=== PATIENT | female | born 1940 | race Hispanic/Latino ===

== ENCOUNTER 2016-08-11 11:27 | Inpatient (IN) | payer MEDICARE, OTHER ==
[2016-08-11 11:28] VITALS: BMI 26.3
--- NOTE | 2016-08-11 12:15 | ED PDOC ---
HPI: Altered Mental Status Time Seen by Provider: 08/11/16 12:09 Chief Complaint (Nursing): Weakness/Neurological Deficit Chief Complaint (Provider): altered mental status History Per: Family History/Exam Limitations: None Current Symptoms Are (Timing): Still Present Description Of Symptoms: Not At Baseline Use Of Anticoag/Antiplatlets: Yes Decreased Ability To: Stand, Walk Additional History Per: Family Additional Complaint(s): 76yo female w/ Hx DC 2 years ago, schizophrenia, taking plavix, brought by family for loss of bladder control. Patient currently complaining of epigastric , chest and facial pain. No fever. Today patient is more lethargic. Several episodes of non-bloody emesis this morning. At baseline patient is non-verbal, mostly non-communicative, can walk but shuffles with assistance. Has not been able to open left eye for several months. PMD: Andrew NIHSS Stroke Scale - Date/Time Evaluation Performed Date Performed: 08/11/16 Time Performed: 11:32 When Was NIHSS Performed: Baseline - How Severe is the Stroke Level of Consciousness: 1=Drowsy LOC to Questions: 2=Neither correct LOC to commands: 2=Neither correct Best Gaze: 0=Normal Visual: 0=No visual loss Facial: 0=Normal Motor Arm - Left: 0=No drift Motor Arm - Right: 0=No drift Motor Leg - Left: 2=Falls before 5 sec Motor Leg - Right: 2=Falls before 5 sec Limb Ataxia: 1=Present Upper or Lower Sensory: 0=Normal Best Language: 2=Severe aphasia Dysarthia: 2=Severe, near unintelligible or worse Extinction & Inattention (Neglect): 0=Normal, no object Score: 14 Past Medical History Reviewed: Historical Data, Nursing Documentation, Vital Signs Vital Signs: Last Vital Signs Temp 99.2 F 08/11/16 11:32 Pulse 90 08/11/16 11:32 Resp 20 08/11/16 11:32 BP 128/63 08/11/16 11:32 Pulse Ox 94 L 08/11/16 11:32 - Medical History PMH: Arthritis, Diabetes, HTN, Schizophrenia Denies: Atrial Fibrillation, Cardia Arrhythmia, CHF, CVA, Mitral Valve Prolapse, Chronic Kidney Disease Other PMH: DC - Surgical History Surgical History: Cholecystectomy, Coronary Stent - Family History Family History: States: Unknown Family Hx - Living Arrangements Living Arrangements: Intermediate/Assist Lvng - Home Medications Home Medications: Ambulatory Orders Medication Instructions Recorded Insulin Detemir [Levemir] 15 units SC BID 06/29/14 Perphenazine 2 mg PO BID 06/29/14 Aspirin [Ecotrin] 81 mg PO DAILY #30 tabec 06/30/14 Carvedilol [Coreg] 3.125 mg PO BID #60 tab 06/30/14 Clopidogrel [Plavix] 75 mg PO DAILY #30 tab 06/30/14 Lisinopril 2.5 mg PO DAILY #30 tab 06/30/14 Rosuvastatin Calcium [Crestor] 10 mg PO HS #30 tab 06/30/14 - Allergies Allergies/Adverse Reactions: Allergies Allergy/AdvReac Type Severity Reaction Status Date / Time Penicillins Allergy RASH Verified 08/11/16 11:36 Review of Systems Review Of Systems: ROS cannot be obtained secondary to pt's inabilty to answer questions. Neurological: Positive for: Altered Mental Status Physical Exam - Reviewed Nursing Documentation Reviewed: Yes Vital Signs Reviewed: Yes - Physical Exam Appears: Positive for: Non-toxic, No Acute Distress Head Exam: Positive for: ATRAUMATIC, NORMAL INSPECTION, NORMOCEPHALIC Skin: Positive for: Pallor Cardiovascular/Chest: Positive for: Regular Rate, Rhythm Respiratory: Negative for: Rales, Rhonchi, Wheezing Gastrointestinal/Abdominal: Positive for: Soft. Negative for: Tenderness Neurologic/Psych: Positive for: Alert, Other (follows basic commands) - Laboratory Results Result Diagrams: 08/12/16 06:50 08/12/16 06:50 - ECG O2 Sat by Pulse Oximetry: 94 Medical Decision Making Medical Decision Makin: Patient is not candidiate for interventional tx or peripheral TPA due to time elapsed >8hrs and other diagnosis possible besides CVA. \ rule out CVA, dehydration, infection, metabolic derangement, abdominal process, or other. CT Head w/o, EKG, CXR, Labs, VBG shock panel, IV Fluids ordered. CXR read by radiologist as no pneumonia. Admit hospitalist for Dr Morales. UA pending time admit. Disposition - Clinical Impression Clinical Impression: Dehydration, Altered mental status, Hyponatremia, Schizophrenia - Patient ED Disposition Is Patient to be Admitted: Yes Counseled Patient/Family Regarding: Studies Performed - Disposition Disposition Time: 14:30 Condition: GUARDED - Pt Status Changed To: Hospital Disposition Of: Inpatient - Admit Certification Admit to Inpatient:: After my assessment, the patient will require hospitalization for at least two midnights. This is because of the severity of symptoms shown, intensity of services needed, and/or the medical risk in this patient being treated as an outpatient. - POA Present On Arrival: Poor Glycemic Control Additional Comments - Additional Comments Additional Comments: Scribe Attestation: Documented by Ammon Cervantes acting as a scribe for Jorge Hull DO. Provider Scribe Attestation: All medical record entries made by the Scribe were at my direction and personally dictated by me. I have reviewed the chart and agree that the record accurately reflects my personal performance of the history, physical exam, medical decision making, and the department course for this patient. I have also personally directed, reviewed, and agree with the discharge instructions and disposition.
[2016-08-11] MEDS ORDERED: Sodium Chloride 0.9% 1,000 ML IV STA (12:17)
[2016-08-11 13:08] LABS: VENOUS BLOOD GAS BASE EXCESS 1.2 mmol/L (0.0-2.0); VENOUS BLOOD GAS PCO2 41 mmHg (40-60); VENOUS BLOOD PH 7.41 (7.32-7.43)
--- NOTE | 2016-08-11 13:20 | RAD ---
HISTORY: SOB COMPARISON: Chest x-ray performed 06/28/14 TECHNIQUE: Chest, one view. FINDINGS: LUNGS: No focal consolidation. Punctate right upper lobe calcified granuloma. Please note that chest x-ray has limited sensitivity for the detection of pulmonary masses. PLEURA: No significant pleural effusion identified. No definite pneumothorax . CARDIOVASCULAR: Heart size appears within normal limits. Mild aortic ectasia. OSSEOUS STRUCTURES: Degenerative changes. VISUALIZED UPPER ABDOMEN: Unremarkable. OTHER FINDINGS: None. IMPRESSION: No focal consolidation, significant pleural effusion, or definite pneumothorax identified.
[2016-08-11 13:26] LABS: ALB/GLOB RATIO 1.1 (1.0-2.1); ALKALINE PHOSPHATASE 88 U/L (38-126); ALT/SGPT 28 U/L (9-52); AST/SGOT 20 U/L (14-36); BILIRUBIN,TOTAL 0.4 mg/dl (0.2-1.3); BLOOD UREA NITROGEN 21 mg/dl (7-17); CALCIUM 8.9 mg/dL (8.4-10.2); CARBON DIOXIDE 21 mmol/L (22-30); CHLORIDE 99 mmol/L (98-107); CHOLESTEROL 86 mg/dL (0-199); GFR AFRICAN-AMERICAN > 60; GLUCOSE,RANDOM 243 mg/dL (65-105); POTASSIUM 4.4 MMOL/L (3.6-5.0); SODIUM 129 mmol/l (132-148)
[2016-08-11 13:31] LABS: PARTIAL THROMBOPLASTIN TIME 25.5 SECONDS (23.3-32.5)
[2016-08-11 13:56] LABS: BASO % 0.4 % (0.0-2.0); EOS # 0.1 K/uL (0.0-0.7); EOS % 0.6 % (0.0-4.0); HEMATOCRIT 37.6 % (34.0-47.0); LYMPH # 1.8 K/uL (1.0-4.3); LYMPH % 14.9 % (20.0-40.0); MEAN CELL VOLUME 92.2 fl (81.0-99.0); MEAN CORPUSCULAR HEMOGLOBIN 31.1 pg (27.0-31.0); MEAN CORPUSCULAR HGB CONC 33.8 g/dL (33.0-37.0); MEAN PLATELET VOLUME 8.4 fl (7.2-11.7); MONO # 1.4 K/uL (0.0-0.8); MONO % 11.2 % (0.0-10.0); NEUT # 8.9 K/uL (1.8-7.0); NEUT % 72.9 % (50.0-75.0); RED CELL DISTRIBUTION WIDTH 12.8 % (11.5-14.5); WHITE BLOOD COUNT 12.2 K/uL (4.8-10.8)
--- NOTE | 2016-08-11 14:33 | CT ---
PROCEDURE: CT HEAD WITHOUT CONTRAST. HISTORY: AMS COMPARISON: 09/19/2009. TECHNIQUE: Axial computed tomography images were obtained through the head/brain without intravenous contrast. Radiation dose: Total exam DLP = 1172.53 mGy-cm. FINDINGS: HEMORRHAGE: No intracranial hemorrhage. BRAIN: No mass effect or edema. Cortical atrophy, periventricular small vessel disease. Small lacune or infarcts again identified bilaterally. VENTRICLES: Unremarkable. No hydrocephalus. CALVARIUM: Unremarkable. PARANASAL SINUSES: Unremarkable as visualized. No significant inflammatory changes. MASTOID AIR CELLS: Unremarkable as visualized. No inflammatory changes. OTHER FINDINGS: None. IMPRESSION: No acute intracranial abnormalities. No significant findings to account for the clinical presentation. No significant interval change compared to the prior examination(s).
--- NOTE | 2016-08-11 16:43 | CP.PCM.HP ---
History of Present Illness - History of Present Illness History of Present Illness: 76 y/o female with PMH Schizofrenia, HTN, h/o IN, Dyslipidemia,IDDM was seen in ER 07/31/16 for hematuria and diagnosed with UTI. She was discharged home on Nitrofurantoin PO. Today decided to bring patient back to ER for evaluation for frequent urination , every 10 minutes , generalized weakness and 1 episode of vomiting after eating some soup today. As per family patient is completely dependent on for all her daily activities, walks with assistance , unable to maintain normal conversations, poor cognition, knows her daughter and . She denies any pain at present. 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 Andrew STAPLETON ; unable to answer questions Present on Admission - Present on Admission Any Indicators Present on Admission: No History of Uncontrolled Diabetes: No Review of Systems - Review of Systems Review of Systems: unable to obtain due to her Schizofrenia Past Patient History - Infectious Disease Hx of Infectious Diseases: None - Tetanus Immunizations Tetanus Immunization: Unknown - Past Medical History & Family History Past Medical History?: Yes Past Family History: Reviewed and not pertinent - Past Social History Smoking Status: Never Smoked Chewing Tobacco Use: No Cigar Use: No Alcohol: None Home Situation {Lives}: With Family (lives with ) Domestic Violence: Negative - CARDIAC Hx Cardiac Disorders: Yes - PULMONARY Hx Respiratory Disorders: No - NEUROLOGICAL Hx Neurological Disorder: Yes - HEENT Hx HEENT Problems: Yes - RENAL Hx Chronic Kidney Disease: No - ENDOCRINE/METABOLIC Hx Endocrine Disorders: Yes - HEMATOLOGICAL/ONCOLOGICAL Hx Blood Disorders: No - INTEGUMENTARY Hx Dermatological Problems: No - MUSCULOSKELETAL/RHEUMATOLOGICAL Hx Musculoskeletal Disorders: No - GASTROINTESTINAL Hx Gastrointestinal Disorders: Yes Hx Nausea: Yes Hx Vomiting: Yes - GENITOURINARY/GYNECOLOGICAL Hx Genitourinary Disorders: No - PSYCHIATRIC Hx Psychophysiologic Disorder: Yes - SURGICAL HISTORY Hx Cholecystectomy: Yes Hx Coronary Stent: Yes - ANESTHESIA Hx Anesthesia: Yes Hx Anesthesia Reactions: No Hx Malignant Hyperthermia: No Meds Allergies/Adverse Reactions: Allergies Allergy/AdvReac Type Severity Reaction Status Date / Time Penicillins Allergy RASH Verified 08/11/16 11:36 Physical Exam - Constitutional Appears: Non-toxic, No Acute Distress, Confused, Chronically Ill - Head Exam Head Exam: ATRAUMATIC, NORMAL INSPECTION Additional comments: left ptosis ? - Eye Exam Eye Exam: EOMI, PERRL - ENT Exam ENT Exam: Mucous Membranes Dry, Normal Exam - Neck Exam Neck exam: Positive for: Full Rom, Normal Inspection - Respiratory Exam Respiratory Exam: Clear to Auscultation Bilateral, NORMAL BREATHING PATTERN. absent: Accessory Muscle Use, Rales, Wheezes, Respiratory Distress - Cardiovascular Exam Cardiovascular Exam: REGULAR RHYTHM, RRR, +S1, +S2. absent: JVD - GI/Abdominal Exam GI & Abdominal Exam: Normal Bowel Sounds, Soft. absent: Distended, Guarding, Rebound, Tenderness - Rectal Exam Rectal Exam: Deferred - Exam External exam: Erythema (labia major bilaterally) - Extremities Exam Extremities exam: Positive for: normal capillary refill, normal inspection, pedal pulses present. Negative for: calf tenderness, pedal edema - Neurological Exam Neurological exam: Alert Additional comments: oriented only to person poor cognition awake , alert moves all 4 extremities, follows simple commands - Psychiatric Exam Psychiatric exam: Flat Affect - Skin Skin Exam: Dry, Pallor, Warm Additional comments: stage I decubitus to sacral area Results - Vital Signs Recent Vital Signs: Last Vital Signs Temp 98.0 F 08/11/16 15:45 Pulse 77 08/11/16 15:45 Resp 16 08/11/16 15:45 BP 122/85 08/11/16 15:45 Pulse Ox 98 08/11/16 15:45 - Labs Result Diagrams: 08/11/16 12:50 08/11/16 12:50 - Imaging and Cardiology CT scan - head Additional comment: No acute pathology cxr Additional comment: no acute pathology Assessment & Plan - Assessment and Plan (Free Text) Assessment: 76 y/o female with PMH Schizofrenia, HTN, h/o [place], Dyslipidemia,IDDM was seen in ER 07/31/16 for hematuria and diagnosed with UTI. She was discharged home on Nitrofurantoin PO. Today decided to bring patient back to ER for evaluation for frequent urination , every 10 minutes , generalized weakness and 1 episode of vomiting after eating some soup today. As per family patient is completely dependent on for all her daily activities, walks with assistance , unable to maintain normal conversations, poor cognition, knows her daughter and . She denies any pain at present. In ER found to have Na 129 WBC 12 k BUN 21 1. Suspected UTI and fungal infection UA positive for yeast , bacteria, LE Send for urine cultures physical exam significant for erythema to labia major Will start Ciprofloxacin and Diflucan IV Start Nystatin powder topically 2. Dehydration / Hyponatremia Start NS @ 100 cc/hr Repeta BMP in AM 3.IDDM Accuchecks , insulin coverage Reviewed her accuchecks from home, ranging > 250 will incresae Levemir from 15 tpo 20 units SQ Diabetic diet 4. Hypertension controlled Resume coreg 5. CAD with history [place] Continue ASA, plavix, Sttain, Coreg, lisinopril 6. Schizophrenia poor cognition, totally dependable on for all daily activities Ambulates with assistance Has home health aid Family does not want any [facility] or placement 7. DVT prophylaxis SCD
[2016-08-11 16:44] LABS: RBC URINE 180 /hpf (0-3); URINE BACTERIA FEW (<OCC); URINE BILIRUBIN NEGATIVE (NEGATIVE); URINE BLOOD LARGE (NEGATIVE); URINE COLOR YELLOW (YELLOW); URINE GLUCOSE (UA) >=500 mg/dL (Normal); URINE KETONE NEGATIVE (NEGATIVE); URINE LEUKOCYTE ESTERASE SMALL Leu/uL (Negative); URINE PROTEIN 30 mg/dL (NEGATIVE); URINE UROBILINOGEN 0.2-1.0 mg/dL (0.2-1.0); WBC URINE 39 /hpf (0-5)
[2016-08-11] MEDS ORDERED: Pneumococcal 23-Valent Vaccine IM ONE (17:57)
[2016-08-11] MEDS ORDERED: Influenza Vaccine(5yr & older) 0.5 ML/45 MCG IM ONE (17:57)
[2016-08-11] MEDS: Sodium Chloride 0.9% 1,000 ML IV SCH (18:40)
[2016-08-11] MEDS: FLUCONAZOLE IVPB SCH (20:30)
[2016-08-11] MEDS: NS 100 MG IVPB SCH (20:30)
[2016-08-11] MEDS: PREMIXED IVPB SCH (20:30)
[2016-08-11] MEDS: Ciprofloxacin 400mg/200ml D5W 200 ML IVPB SCH (21:00)
[2016-08-11] MEDS: Insulin Regular 100 units/ml SC SCH (22:00)
[2016-08-11] MEDS ORDERED: Patient's Own Med (Rosuvastatin Calcium [Crestor] 10 MG) PO SCH (22:00)
--- NOTE | 2016-08-12 07:20 | CARD ---
APPROVED REPORT EKG Measurement Heart [id number] <Conclusion> Normal sinus rhythm Left ventricular hypertrophy with repolarization abnormality Abnormal ECG
[2016-08-12 07:29] LABS: BASO % 0.4 % (0.0-2.0); HEMATOCRIT 34.9 % (34.0-47.0); LYMPH # 1.4 K/uL (1.0-4.3); LYMPH % 17.1 % (20.0-40.0); MEAN CORPUSCULAR HEMOGLOBIN 31.5 pg (27.0-31.0); MEAN CORPUSCULAR HGB CONC 34.6 g/dL (33.0-37.0); MEAN PLATELET VOLUME 8.1 fl (7.2-11.7); MONO % 11.9 % (0.0-10.0); NEUT # 5.7 K/uL (1.8-7.0); NEUT % 70.6 % (50.0-75.0); RED CELL DISTRIBUTION WIDTH 12.8 % (11.5-14.5); WHITE BLOOD COUNT 8.1 K/uL (4.8-10.8)
[2016-08-12 07:45] LABS: BLOOD UREA NITROGEN 20 mg/dl (7-17); CALCIUM 8.1 mg/dL (8.4-10.2); CARBON DIOXIDE 22 mmol/L (22-30); CHLORIDE 102 mmol/L (98-107); GFR AFRICAN-AMERICAN > 60; GLUCOSE,RANDOM 292 mg/dL (65-105); POTASSIUM 4.2 MMOL/L (3.6-5.0); SODIUM 136 mmol/l (132-148)
[2016-08-12] MEDS: Insulin Regular 100 units/ml SC SCH ×3 (08:00→17:03)
[2016-08-12] MEDS ORDERED: INSULIN DETEMIR 20 UNIT SC SCH (09:00)
[2016-08-12] MEDS ORDERED: LISINOPRIL 2.5 MG PO SCH (09:00)
[2016-08-12] MEDS ORDERED: PERPHENAZINE 2 MG PO SCH (09:00)
[2016-08-12] MEDS: Ciprofloxacin 400mg/200ml D5W 200 ML IVPB SCH ×2 (09:25→21:21)
[2016-08-12] MEDS: PREMIXED IVPB SCH (09:26)
[2016-08-12] MEDS: NS 100 MG IVPB SCH (09:26)
[2016-08-12] MEDS: FLUCONAZOLE IVPB SCH (09:26)
[2016-08-12] MEDS: Insulin Detemir 100 Units/ml Inj SC SCH ×2 (09:27→17:04)
[2016-08-12] MEDS: Pantoprazole 40 mg EC Tab PO SCH ×2 (09:27→09:58)
--- NOTE | 2016-08-12 11:24 | PQF GENQUE ---
Dr. Anne, (1)Nonblanchble redness of sacrum? (2) POA? OR; Disagree OR: Other explanation of clinical findings Nursing pressure ulcer assessment :sacrum non-blanchable redness 08/11: physician order; nursing referral for Wound Care:reason for exam:sacral and perineal redness Wound consult pending This form is a permanent part of the medical record See documentation in H & P Clarification of your documentation is requested to better reflect the severity of illness and intensity of treatment of your patient. Indicators present [] Specify: [] [] Specify: [] [] Specify: [] [] Specify: [] Location in the medical record that reflects the above clinical findings: [] Treatment Provided: [] PHYSICIAN'S RESPONSE Based on your medical judgment of the clinical indicators outlined above please clarify the following: [] Practitioner response [] If unable to determine, please check the box, sign and date. Present On Admission (POA) Indicator: [] Present at the time of admission [] Not present at the time of admission [] Clinically Undetermined In responding to this query, please exercise your independent professional judgment. The fact that a question is asked does not imply that any particular answer is desired or expected. Thank you for your clarification on this documentation. If you have any questions please call. * Thank you, Karen Aly RN BSN ext. #[phone] MTDD
[2016-08-12] MEDS ORDERED: Insulin Regular 100 units/ml SC ONE (12:29)
--- NOTE | 2016-08-12 13:43 | CP.PCM.PN ---
Subjective - Date & Time of Evaluation Date of Evaluation: 08/12/16 Time of Evaluation: 11:30 - Subjective Subjective: Patient was seen and evaluated bedside.Patient appears comfortable, in NAD , sleeping most of the time.Was found on the floor by staff sleeping with no obvious signs of trauma. Moving all 4 extremities,no obvious signs of trauma noted, no incontinence. Patient responding to name calling , denies any pain upon questioning, palpation or passive movement of all her extremities. She is awake , alert , follows simple commands, denies any pain , unable to hold conversation , poor cognition. Hemodynamically stable, afebrile. No acute issues overnight Objective - Vital Signs/Intake and Output Vital Signs (last 24 hours): Temp Pulse Resp BP Pulse Ox 98.5 F 97 H 20 151/68 H 97 08/12/16 11:40 08/12/16 11:40 08/12/16 11:40 08/12/16 11:40 08/12/16 11:40 - Medications Medications: Current Medications Acetaminophen (Tylenol 325mg Tab) 650 mg PO Q6 PRN PRN Reason: Pain, Mild (1-3) Acetaminophen (Tylenol 325mg Tab) 650 mg PO Q6 PRN PRN Reason: Fever >100.4 F Aspirin (Ecotrin) 81 mg PO DAILY [facility] Last Admin: 08/12/16 09:35 Dose: Not Given Atorvastatin Calcium (Lipitor) 20 mg PO DAILY [facility] Last Admin: 08/12/16 09:35 Dose: Not Given Carvedilol (Coreg) 3.125 mg PO BID [facility] Last Admin: 08/12/16 09:35 Dose: Not Given Clopidogrel Bisulfate (Plavix) 75 mg PO DAILY [facility] Last Admin: 08/12/16 09:35 Dose: Not Given Home Med (Insulin Detemir [Levemir]) 20 units SC BID [facility] Home Med (Lisinopril [Lisinopril]) 2.5 mg PO DAILY [facility] Home Med (Perphenazine [Perphenazine]) 2 mg PO BID [facility] Home Med (Rosuvastatin Calcium [Crestor]) 10 mg PO HS [facility] Fluconazole 100 mg/ (Miscellaneous) 50 mls @ 50 mls/hr IVPB DAILY [facility] Last Admin: 08/12/16 09:26 Dose: 50 mls/hr Sodium Chloride (Sodium Chloride 0.9%) 1,000 mls @ 100 mls/hr IV .Q10H [facility] Stop: 08/12/16 18:16 Last Admin: 08/11/16 18:40 Dose: 100 mls/hr Ciprofloxacin (Cipro 400mg/200ml Dsw) 200 mls @ 200 mls/hr IVPB Q12 [facility] Last Admin: 08/12/16 09:25 Dose: 200 mls/hr Insulin Detemir (Levemir) 20 units SC BID [facility] Last Admin: 08/12/16 09:27 Dose: 20 unit Insulin Human Regular (Humulin R) 0 units SC ACHS [facility] PRN Reason: Protocol Last Admin: 08/12/16 08:00 Dose: 4 units Lisinopril (Zestril) 2.5 mg PO DAILY [facility] Last Admin: 08/12/16 09:35 Dose: Not Given Nystatin (Nystop Topical Powder) 1 applic TOP TID [facility] Last Admin: 08/12/16 09:28 Dose: 1 applic Ondansetron HCl (Zofran Inj) 4 mg IVP Q6 PRN PRN Reason: Nausea/Vomiting Last Admin: 08/12/16 09:38 Dose: 4 mg Pantoprazole Sodium (Protonix Ec Tab) 40 mg PO DAILY [facility] Last Admin: 08/12/16 09:58 Dose: Not Given Perphenazine (Perphenazine) 2 mg PO BID [facility] Last Admin: 08/12/16 09:35 Dose: Not Given - Labs Labs: 08/12/16 06:50 08/12/16 06:50 PT 10.6 SECONDS (9.6-11.2) 08/11/16 12:50 INR 1.02 (0.92-1.08) 08/11/16 12:50 APTT 25.5 SECONDS (23.3-32.5) 08/11/16 12:50 - Constitutional Appears: Non-toxic, No Acute Distress, Chronically Ill (poor cognition), Other ( left eye ptosis) - Head Exam Head Exam: ATRAUMATIC, NORMOCEPHALIC - Eye Exam Eye Exam: EOMI Pupil Exam: NORMAL ACCOMODATION Additional comments: keeps left eye closed most of the time - ENT Exam ENT Exam: Mucous Membranes Moist, Normal Exam - Neck Exam Neck Exam: Full ROM, Normal Inspection - Respiratory Exam Respiratory Exam: Clear to Ausculation Bilateral, NORMAL BREATHING PATTERN. absent: Rales, Rhonchi, Wheezes - Cardiovascular Exam Cardiovascular Exam: REGULAR RHYTHM, RRR, +S1, +S2. absent: JVD - GI/Abdominal Exam GI & Abdominal Exam: Soft, Normal Bowel Sounds. absent: Distended, Guarding, Tenderness, Rebound - Rectal Exam Rectal Exam: Deferred - Exam External exam: Erythema (bilateral labia major ) - Extremities Exam Extremities Exam: Full ROM, Normal Capillary Refill, Normal Inspection. absent : Calf Tenderness, Pedal Edema - Back Exam Back Exam: NORMAL INSPECTION - Neurological Exam Neurological Exam: Alert, Awake Additional comments: follow simple commands poor cognition - Psychiatric Exam Psychiatric exam: Flat Affect - Skin Skin Exam: Dry, Pallor Additional comments: stage I ( non blanchable erythema to sacral area ) Assessment and Plan - Assessment and Plan (Free Text) Assessment: 76 y/o female with PMH Schizofrenia, HTN, h/o [place], Dyslipidemia,IDDM was seen in ER 07/31/16 for hematuria and diagnosed with UTI. She was discharged home on Nitrofurantoin PO. On 08/11/16 decided to bring patient back to ER for evaluation for frequent urination , every 10 minutes , generalized weakness and 1 episode of vomiting after eating some soup . As per family patient is completely dependent on for all her daily activities, walks with assistance , unable to maintain normal conversations, poor cognition, knows her daughter and . She denies any pain at present. In ER found to have Na 129 WBC 12 k BUN 21 1. Suspected UTI and fungal infection UA positive for yeast , bacteria, LE Follow up urine cultures physical exam significant for erythema to labia major suspicious for candidiasis Continue Ciprofloxacin and Diflucan IV Nystatin powder topically 2. Dehydration / Hyponatremia improving On NS @ 100 cc/hr 3.IDDM uncontrolled Accuchecks , insulin coverage Reviewed her accuchecks from home, ranging > 250 increased Levemir from 15 to 20 units SQ BID Diabetic diet 4.Hypertension labile continue coreg Given Hydralazine IV for uncontrolled HTN 5. CAD with history [place] Continue ASA, plavix, Sttain, Coreg, lisinopril 6. Schizophrenia poor cognition, totally dependable on for all daily activities Ambulates with assistance Has home health aid Family does not want any DAO or placement Suspected fall today in e floor since patient was found on [facility] no signs of trauma or no pain.Placed on 1 ; 1 for safety 7. DVT prophylaxis SCD
[2016-08-12] MEDS: Sodium Chloride 0.9% 1,000 ML IV SCH ×2 (14:30→22:14)
[2016-08-12] MEDS: guaiFENesin-DM 600-30 mg ER Tab PO SCH (17:08)
[2016-08-13] MEDS: Insulin Regular 100 units/ml SC SCH ×3 (01:08→11:30)
[2016-08-13 07:05] LABS: HEMATOCRIT 35.8 % (34.0-47.0); MEAN CORPUSCULAR HEMOGLOBIN 31.2 pg (27.0-31.0); MEAN CORPUSCULAR HGB CONC 34.3 g/dL (33.0-37.0); RED CELL DISTRIBUTION WIDTH 12.8 % (11.5-14.5); WHITE BLOOD COUNT 9.2 K/uL (4.8-10.8)
[2016-08-13 07:27] LABS: BLOOD UREA NITROGEN 14 mg/dl (7-17); CALCIUM 8.1 mg/dL (8.4-10.2); CARBON DIOXIDE 20 mmol/L (22-30); CHLORIDE 103 mmol/L (98-107); GFR AFRICAN-AMERICAN > 60; GLUCOSE,RANDOM 96 mg/dL (65-105); SODIUM 131 mmol/l (132-148)
[2016-08-13] MEDS: PREMIXED IVPB SCH (09:00)
[2016-08-13] MEDS: NS 100 MG IVPB SCH (09:00)
[2016-08-13] MEDS: FLUCONAZOLE IVPB SCH (09:00)
[2016-08-13] MEDS: Ciprofloxacin 400mg/200ml D5W 200 ML IVPB SCH (09:29)
[2016-08-13] MEDS: Insulin Detemir 100 Units/ml Inj SC SCH (09:29)
[2016-08-13] MEDS: guaiFENesin-DM 600-30 mg ER Tab PO SCH (09:30)
[2016-08-13] MEDS: Pantoprazole 40 mg EC Tab PO SCH (09:30)
--- NOTE | 2016-08-13 11:51 | CP.PCM.DIS ---
Provider - Provider Date of Admission: 08/11/16 14:56 Attending physician: Joan Anne MD Primary care physician: Corrie Hernandez DO Time Spent in preparation of Discharge (in minutes): 40 Hospital Course - Lab Results Lab Results: Most Recent Lab Values WBC 9.2 K/uL (4.8-10.8) 08/13/16 06:00 RBC 3.94 Mil/uL (3.80-5.20) 08/13/16 06:00 Hgb 12.3 g/dL (12.0-16.0) 08/13/16 06:00 Hct 35.8 % (34.0-47.0) 08/13/16 06:00 MCV 91.0 fl (81.0-99.0) 08/13/16 06:00 MCH 31.2 pg (27.0-31.0) H 08/13/16 06:00 MCHC 34.3 g/dL (33.0-37.0) 08/13/16 06:00 RDW 12.8 % (11.5-14.5) 08/13/16 06:00 Plt Count 130 K/uL (130-400) 08/13/16 06:00 MPV 8.1 fl (7.2-11.7) 08/12/16 06:50 Neut % (Auto) 70.6 % (50.0-75.0) 08/12/16 06:50 Lymph % (Auto) 17.1 % (20.0-40.0) L 08/12/16 06:50 Frederick % (Auto) 11.9 % (0.0-10.0) H 08/12/16 06:50 Eos % (Auto) 0.0 % (0.0-4.0) 08/12/16 06:50 Baso % (Auto) 0.4 % (0.0-2.0) 08/12/16 06:50 Neut # 5.7 K/uL (1.8-7.0) 08/12/16 06:50 Lymph # 1.4 K/uL (1.0-4.3) 08/12/16 06:50 Frederick # 1.0 K/uL (0.0-0.8) H 08/12/16 06:50 Eos # 0.0 K/uL (0.0-0.7) 08/12/16 06:50 Baso # 0.0 K/uL (0.0-0.2) 08/12/16 06:50 PT 10.6 SECONDS (9.6-11.2) 08/11/16 12:50 INR 1.02 (0.92-1.08) 08/11/16 12:50 APTT 25.5 SECONDS (23.3-32.5) 08/11/16 12:50 pO2 44 mm/Hg (30-55) 08/11/16 13:00 VBG pH 7.41 (7.32-7.43) 08/11/16 13:00 VBG pCO2 41 mmHg (40-60) 08/11/16 13:00 VBG HCO3 25.4 mmol/L 08/11/16 13:00 VBG Total CO2 27.3 mmol/L (22-28) 08/11/16 13:00 VBG O2 Sat (Calc) 81.9 % (40-65) H 08/11/16 13:00 VBG Base Excess 1.2 mmol/L (0.0-2.0) 08/11/16 13:00 VBG Potassium 4.3 mmol/L (3.6-5.2) 08/11/16 13:00 Sodium 129.0 mmol/L (132-148) L 08/11/16 13:00 Chloride 102.0 mmol/L (98-107) 08/11/16 13:00 Glucose 253 mg/dL (65-105) H 08/11/16 13:00 Lactate 1.1 mmol/L (0.7-2.1) 08/11/16 13:00 FiO2 21.0 % 08/11/16 13:00 Sodium 131 mmol/l (132-148) L 08/13/16 06:00 Potassium 4.0 MMOL/L (3.6-5.0) 08/13/16 06:00 Chloride 103 mmol/L (98-107) 08/13/16 06:00 Carbon Dioxide 20 mmol/L (22-30) L 08/13/16 06:00 Anion Gap 12 (10-20) 08/13/16 06:00 BUN 14 mg/dl (7-17) 08/13/16 06:00 Creatinine 0.6 mg/dL (0.7-1.2) L 08/13/16 06:00 Est GFR ( Amer) > 60 08/13/16 06:00 Est GFR (Non-Af Amer) > 60 08/13/16 06:00 POC Glucose (mg/dL) 115 mg/dL (65-110) H 08/13/16 05:03 Random Glucose 96 mg/dL (65-105) 08/13/16 06:00 Hemoglobin A1c 10.0 % (4.2-6.5) H 08/11/16 14:40 Calcium 8.1 mg/dL (8.4-10.2) L 08/13/16 06:00 Total Bilirubin 0.4 mg/dl (0.2-1.3) 08/11/16 12:50 AST 20 U/L (14-36) 08/11/16 12:50 ALT 28 U/L (9-52) 08/11/16 12:50 Alkaline Phosphatase 88 U/L (38-126) 08/11/16 12:50 Troponin I 0.0290 ng/mL (0.00-0.120) 08/11/16 12:50 Total Protein 7.0 G/DL (6.3-8.2) 08/11/16 12:50 Albumin 3.7 g/dL (3.5-5.0) 08/11/16 12:50 Globulin 3.3 gm/dL (2.2-3.9) 08/11/16 12:50 Albumin/Globulin Ratio 1.1 (1.0-2.1) 08/11/16 12:50 Triglycerides 118 mg/DL (0-149) 08/11/16 12:50 Cholesterol 86 mg/dL (0-199) 08/11/16 12:50 LDL Cholesterol Direct < 30 mg/dL (0-129) 08/11/16 12:50 HDL Cholesterol 34 MG/DL (30-70) 08/11/16 12:50 Venous Blood Potassium 4.3 mmol/L (3.6-5.2) 08/11/16 13:00 Urine Color Yellow (YELLOW) 08/11/16 14:50 Urine Clarity Slighty-cloudy (Clear) 08/11/16 14:50 Urine pH 7.0 (5.0-8.0) 08/11/16 14:50 Ur Specific [place] < 1.005 (1.003-1.030) 08/11/16 14:50 Urine Protein 30 mg/dL (NEGATIVE) 08/11/16 14:50 Urine Glucose (UA) >=500 mg/dL (Normal) 08/11/16 14:50 Urine Ketones Negative mg/dL (NEGATIVE) 08/11/16 14:50 Urine Blood Large (NEGATIVE) 08/11/16 14:50 Urine Nitrate Negative (NEGATIVE) 08/11/16 14:50 Urine Bilirubin Negative (NEGATIVE) 08/11/16 14:50 Urine Urobilinogen 0.2-1.0 mg/dL (0.2-1.0) 08/11/16 14:50 Ur Leukocyte Esterase Small [place]/uL (Negative) 08/11/16 14:50 Urine RBC (Auto) 180 /hpf (0-3) H 08/11/16 14:50 Urine Microscopic WBC 39 /hpf (0-5) H 08/11/16 14:50 Ur Squamous Epith Cells 1 /hpf (0-5) 08/11/16 14:50 Urine Bacteria Few (<OCC) H 08/11/16 14:50 Urine Yeast (Budding) Occ /hpf (NEGATIVE) H 08/11/16 14:50 Blood Type B POSITIVE 08/11/16 12:50 Antibody Screen Negative 08/11/16 12:50 BBK History Checked Patient has bt 08/11/16 12:50 - Hospital Course Hospital Course: 76 year old female who was brought in by her (who takes care of her at home) on 08/11/16 with complaints of frequent urination and generalized weakness and 1 episode of vomiting. She has a history of poor cognition and unable to maintain a conversation. Chest X Ray did not show any consolidations/acute disease. CT Head did not show any acute disease/with no change from prior studies. UA showed bacteria and yeast and she was started on Cipro and Fluconazole. It was recommended to the and daughter that patient be sent to Subacute Rehab but they declined. I again recommended this to them at the time of my exam today, and again they have declined. ROS: patient answers NO to every ROS question HEENT: EOMI, PERRLA, NO lymphadenopathy, NO thyromegaly, Oral Mucous Membranes and Nasal Turbinates are moist Cardio: NS1 and NS2, NO M/R/G Respiratory: CTA B/L NO R/R/W GI: BS x 4, Soft, NT, ND, NO HSM, NO guarding/rebound tenderness EXT: NO edema, Pulses are strong and equal, Capillary Refill is 2 seconds Patient is stable for discharge I went over the home medications with the patient's daughter and and they stated that she had enough of these medications. They understand to roll picker medications from [facility] in [place] to complete course for UTI treatment. They understand to have the patient follow up with PMD within 7 days. The following instructions should be provided to patient upon discharge: 1). group contract analyst the following prescriptions from [facility]: Ciprofloxacin 500 mg 1 tablet by mouth every 12 hours till finished starting on 08/14/16 Fluconazole 100 mg 1 tablet by mouth once a day till finished starting on 2). Follow up with your Primary Care Physician Dr. Morales [phone] within 7 days. 3). Continue your home medications as instructed by Dr. Andrew Chambers D.O. Discharge Exam - Head Exam Head Exam: ATRAUMATIC, NORMAL INSPECTION, NORMOCEPHALIC Discharge Plan - Discharge Medications Prescriptions: Ciprofloxacin [Cipro] 500 mg PO Q12 #8 tab Fluconazole [Diflucan] 100 mg PO DAILY #4 tab - Follow Up Plan Condition: GUARDED Disposition: HOME/ ROUTINE Instructions: Dehydration (DC), Urinary Tract Infection in Women (DC), Urinary Tract Infection in Men (DC), Hyponatremia (DC), Dysuria (GEN), Altered Mental Status (GEN) Referrals: Corrie Hernandez DO [Primary Care Provider] -
[2016-08-13] MEDS ORDERED: Insulin Regular 100 units/ml SC ONE (12:05)
[2016-08-13 12:09] VITALS: PULSE 78; RESP 18; TEMP 98.1; O2SAT 92
[2016-08-13 13:39] VITALS: BP 145/73
== END 2016-08-13 14:07 | disposition home or self-care (01) | DRG 758 ==
LOC: H.ER 11:27 → H.ERHOLD 14:56 → H.TEL 16:27
PROVIDERS: ADMIT Hospitalist; ATTEND Hospitalist
PROC: 3E0234Z Introduction of Serum, Toxoid and Vaccine into Muscle, Percutaneous Approach (ICD-10-PCS; principal; 2016-08-12)
DX: B37.49 Other urogenital candidiasis (principal); B48.8 Other specified mycoses; E87.1 Hypo-osmolality and hyponatremia; B37.3 Candidiasis of vulva and vagina; E86.0 Dehydration; L89.151 Pressure ulcer of sacral region, stage 1; E11.9 Type 2 diabetes mellitus without complications; F20.9 Schizophrenia, unspecified; I10 Essential (primary) hypertension; E78.5 Hyperlipidemia, unspecified; I25.10 Atherosclerotic heart disease of native coronary artery without angina pectoris; M19.90 Unspecified osteoarthritis, unspecified site; Z23 Encounter for immunization; I25.2 Old myocardial infarction; Z95.5 Presence of coronary angioplasty implant and graft; Z88.0 Allergy status to penicillin; Z79.4 Long term (current) use of insulin; Z79.82 Long term (current) use of aspirin; Z79.02 Long term (current) use of antithrombotics/antiplatelets

== ENCOUNTER 2016-12-19 21:51 | Inpatient (IN) | payer MEDICARE, OTHER ==
[2016-12-19 21:51] VITALS: BMI 26.3
[2016-12-19] MEDS ORDERED: Iohexol 240 (50 ml) PO ONE (22:16)
[2016-12-19] MEDS ORDERED: Sodium Chloride 0.9% 1,000 ML IV STA (22:18)
--- NOTE | 2016-12-19 23:40 | ED PDOC ---
HPI: Abdomen Time Seen by Provider: 12/19/16 21:57 Chief Complaint (Nursing): GI Problem Chief Complaint (Provider): GI Problem History Per: Patient, Family History/Exam Limitations: clinical condition (Dementia ) Onset/Duration Of Symptoms: Hrs Outside of [place] travel?: No Current Symptoms Are (Timing): Still Present Severity: Mild Associated Symptoms: Vomiting (Once), Constipation ((No bowel movement in three days)). denies: Fever Last Bowel Movement: Days Ago (Three Days) Additional Complaint(s): 76 y/o female presenting to the ED with progressive weakness and throat pain. The patients daughter and brought her in and state that she vomited one time today and has been having progressive weakness and throat pain. They also report the patient has not had a bowel movement in over three days. The patient 's family report she has dementia so that is her caveat for providing a past medical history. But the family denies any cough, or fever and state she has had abdominal surgery in the past. Past Medical History Reviewed: Historical Data, Nursing Documentation, Vital Signs Vital Signs: Last Vital Signs Temp 98.2 F 12/20/16 02:53 Pulse 82 12/20/16 02:53 Resp 17 12/20/16 02:53 BP 109/61 12/20/16 02:53 Pulse Ox 96 12/20/16 03:56 - Medical History PMH: Arthritis, Dementia, Diabetes, HTN, Schizophrenia Denies: Atrial Fibrillation, Cardia Arrhythmia, CHF, CVA, Mitral Valve Prolapse, Chronic Kidney Disease - Surgical History Surgical History: Cholecystectomy, Coronary Stent - Family History Family History: States: Unknown Family Hx - Home Medications Home Medications: Ambulatory Orders Medication Instructions Recorded Insulin Detemir [Levemir] 15 units SC BID 06/29/14 Perphenazine 2 mg PO BID 06/29/14 Aspirin [Ecotrin] 81 mg PO DAILY #30 tabec 06/30/14 Carvedilol [Coreg] 3.125 mg PO BID #60 tab 06/30/14 Clopidogrel [Plavix] 75 mg PO DAILY #30 tab 06/30/14 Lisinopril 2.5 mg PO DAILY #30 tab 06/30/14 Rosuvastatin Calcium [Crestor] 10 mg PO HS #30 tab 06/30/14 - Allergies Allergies/Adverse Reactions: Allergies Allergy/AdvReac Type Severity Reaction Status Date / Time Penicillins Allergy RASH Verified 03/20/17 11:36 Review of Systems Review Of Systems: ROS cannot be obtained secondary to pt's inabilty to answer questions. ((ROS fromfamily members)) Constitutional: Positive for: Weakness. Negative for: Fever Gastrointestinal: Positive for: Vomiting ((+)Once), Abdominal Pain, Constipation ((+)No bowel movement in three days) Neurological: Positive for: Altered Mental Status ((+)Dementia ) Physical Exam - Reviewed Nursing Documentation Reviewed: Yes Vital Signs Reviewed: Yes - Physical Exam Appears: Positive for: Non-toxic, No Acute Distress Head Exam: Positive for: ATRAUMATIC, NORMAL INSPECTION, NORMOCEPHALIC Skin: Positive for: Warm, Dry, Pallor Neck: Positive for: Normal, Painless ROM, Supple Cardiovascular/Chest: Positive for: Regular Rate, Rhythm. Negative for: Murmur Respiratory: Positive for: Normal Breath Sounds, Respiratory Distress. Negative for: Wheezing Gastrointestinal/Abdominal: Positive for: Soft, Tenderness ((+)Minimal tenderness to palpation.) Extremity: Positive for: Normal ROM Neurologic/Psych: Positive for: Alert. Negative for: Oriented ((+)Dementia), Motor/Sensory Deficits - Laboratory Results Result Diagrams: 12/19/16 23:00 12/19/16 23:00 - ECG O2 Sat by Pulse Oximetry: 96 (RA) Pulse Ox Interpretation: Normal Medical Decision Making Medical Decision Making: Time: 2214 Initial impression: SPO Over Electrolyte Anemia versus Anemia Initial plan: --TYPE AND SCREEN --ABD PELVIS PO & IV CONTRAST CT --EKG --CMP --LIPASE --TROPONIN I --EKG-ED --CBC --CHEST ONE VIEW XRAY --IOHEXOL 50ML PO ONCE --SODIUM CHLORIDE 1,000ML IV 250 MLS/HR --ONDANSETRON 4MG IVP --URINE CULTURE --ADMIT --URINALYSIS --ED-Observation [id number]: EXAM: CT Abdomen and Pelvis With Intravenous Contrast CLINICAL HISTORY: 76 years old, female; Pain; Abdominal pain; Generalized; Additional info: N/v, no bm in 3 days, S/P abd surgeries TECHNIQUE: Axial computed tomography images of the abdomen and pelvis with intravenous contrast. This CT exam was performed using one or more of the following dose reduction techniques: automated exposure control, adjustment of the mA and/or kV according to patient size, and/or use of iterative reconstruction technique. Coronal and sagittal reformatted images were created and reviewed. CONTRAST: 95 mL of [id number] administered intravenously. COMPARISON: No relevant prior studies available. FINDINGS: Lower thorax: Moderate bibasilar airspace disease. ABDOMEN: Liver: No acute findings. Gallbladder and bile ducts: The gallbladder is surgically absent. No significant intra- or extrahepatic biliary ductal dilation. Pancreas: Enhances homogeneously. No ductal dilation. No discrete mass. Spleen: No acute findings. Adrenals: No acute findings. Kidneys and ureters: Size asymmetry between the bilateral kidneys, with the left being larger than the right. Preservation of the reniform shape. Multiple low-attenuation lesions scattered throughout the kidney. Obliteration of the renal sinus fat. No calculi or hydronephrosis identified. PELVIS: Bladder: No acute findings. Reproductive: No acute findings. Appendix: The air filled appendix is of normal caliber (series 2, image 36). ABDOMEN and PELVIS: Stomach and bowel: No obstruction. No mucosal thickening. Peritoneum: No significant fluid collection. No free air. Lymph nodes: No pathologically enlarged lymph nodes. Vasculature: High-grade stenosis of the left renal artery. Bones: No acute findings. 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 Additional findings within the left renal artery, suggesting ischemia. 3AM: Pt. w/ stable vitals, negative lactate. Severe Sepsis not suspected at this time. Case discussed with Dr. Abreu who agrees with admission. Scribe Attestation: Documented by Flaquita Logan, acting as a scribe for Zach Jimenez MD. Scribe Attestation: All medical record entries made by the Scribe were at my direction and personally dictated by me. I have reviewed the chart and agree that the record accurately reflects my personal performance of the history, physical exam, medical decision making, and the department course for this patient. I have also personally directed, reviewed, and agree with the discharge instructions and disposition. ED OBSERVATION Date of observation admission: 12/19/16 Time of observation admission: 22:15 - Observation admission statement Patient is being placed in observation because:: Pending CT Scan, XRay and further workups. - Goals of Observation Goals of observation are:: Observation and/or resolution of patient symptoms. - Progress Note Progress Note: 12/19/16 23:[address] Scan, XRay and further workups. 12/20/16 01:[address] Scan, XRay and further workups. 12/20/16 02:[address] Scan, XRay and further workups. 12/20/16 04:[address] Scan, XRay and further workups. Disposition - Clinical Impression Clinical Impression: Pyelonephritis, Leukocytosis - Disposition Disposition Time: 03:00 Condition: STABLE
[2016-12-19 23:51] LABS: ALB/GLOB RATIO 1.3 (1.0-2.1); BILIRUBIN,TOTAL 0.7 mg/dl (0.2-1.3); CALCIUM 9.6 mg/dL (8.4-10.2); POTASSIUM 4.6 MMOL/L (3.6-5.0); TOTAL PROTEIN 7.7 G/DL (6.3-8.2)
[2016-12-20] LABS: BASO % 0.1 % (0.0-2.0); EOS % 0.1 % (0.0-4.0); HEMATOCRIT 38.7 % (34.0-47.0); MEAN CELL VOLUME 90.9 fl (81.0-99.0); MEAN CORPUSCULAR HEMOGLOBIN 30.7 pg (27.0-31.0); MEAN CORPUSCULAR HGB CONC 33.8 g/dL (33.0-37.0); MEAN PLATELET VOLUME 7.7 fl (7.2-11.7); MONO # 2.2 K/uL (0.0-0.8); MONO % 10.8 % (0.0-10.0); RED CELL DISTRIBUTION WIDTH 12.7 % (11.5-14.5); WHITE BLOOD COUNT 20.3 K/uL (4.8-10.8)
[2016-12-20 00:01] LABS: TROPONIN I 0.049 ng/mL (0.00-0.120)
[2016-12-20 01:03] LABS: ABG ALLEN TEST YES; ARTERIAL BLOOD GAS HCO3 24.9 mmol/L (21-28); ARTERIAL BLOOD GAS PH 7.45 (7.35-7.45); ARTERIAL BLOOD GAS PO2 61 mm/Hg (80-100)
[2016-12-20] MEDS ORDERED: Sodium Chloride 0.9% 50 ML IV ONE (01:42)
[2016-12-20] MEDS ORDERED: Iohexol 300 100 ML IJ ONE (01:42)
[2016-12-20] MEDS ORDERED: levoFLOXacin 750 mg in D5W 150 ML BAG IVPB STA (02:21)
[2016-12-20] MEDS ORDERED: Sodium Chloride 0.9% 1,000 ML IV STA (02:21)
[2016-12-20] MEDS ORDERED: levoFLOXacin 750 mg in D5W 750 MG/150 ML BAG IVPB ONE (02:25)
[2016-12-20 02:34] LABS: RBC URINE 108 /hpf (0-3); URINE BACTERIA MANY (<OCC); URINE BILIRUBIN NEGATIVE (NEGATIVE); URINE BLOOD MODERATE (NEGATIVE); URINE COLOR AMBER (YELLOW); URINE GLUCOSE (UA) >=500 mg/dL (Normal); URINE KETONE NEGATIVE (NEGATIVE); URINE LEUKOCYTE ESTERASE LARGE Leu/uL (Negative); URINE PROTEIN 100 mg/dL (NEGATIVE); URINE UROBILINOGEN 0.2-1.0 mg/dL (0.2-1.0); WBC CLUMPS MANY /hpf; WBC URINE 2171 /hpf (0-5)
--- NOTE | 2016-12-20 03:02 | CT ---
EXAM: CT Abdomen and Pelvis With Intravenous Contrast CLINICAL HISTORY: 76 years old, female; Pain; Abdominal pain; Generalized; Additional info: N/v, no bm in 3 days, S/P abd surgeries TECHNIQUE: Axial computed tomography images of the abdomen and pelvis with intravenous contrast. This CT exam was performed using one or more of the following dose reduction techniques: automated exposure control, adjustment of the mA and/or kV according to patient size, and/or use of iterative reconstruction technique. Coronal and sagittal reformatted images were created and reviewed. CONTRAST: 95 mL of [id number] administered intravenously. COMPARISON: No relevant prior studies available. FINDINGS: Lower thorax: Moderate bibasilar airspace disease. ABDOMEN: Liver: No acute findings. Gallbladder and bile ducts: The gallbladder is surgically absent. No significant intra- or extrahepatic biliary ductal dilation. Pancreas: Enhances homogeneously. No ductal dilation. No discrete mass. Spleen: No acute findings. Adrenals: No acute findings. Kidneys and ureters: Size asymmetry between the bilateral kidneys, with the left being larger than the right. Preservation of the reniform shape. Multiple low-attenuation lesions scattered throughout the kidney. Obliteration of the renal sinus fat. No calculi or hydronephrosis identified. PELVIS: Bladder: No acute findings. Reproductive: No acute findings. Appendix: The air filled appendix is of normal caliber (series 2, image 36). ABDOMEN and PELVIS: Stomach and bowel: No obstruction. No mucosal thickening. Peritoneum: No significant fluid collection. No free air. Lymph nodes: No pathologically enlarged lymph nodes. Vasculature: High-grade stenosis of the left renal artery. Bones: No acute findings. 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 Additional findings within the left renal artery, suggesting ischemia.
[2016-12-20] MEDS ORDERED: Dextrose 50% SYRINGE Inj (50 ml) IV PRN (03:34)
[2016-12-20] MEDS ORDERED: Glucagon Recombinant 1 mg Inj IM PRN (03:34)
[2016-12-20] MEDS ORDERED: Sodium Chloride 0.9% 1,000 ML IV SCH (03:45)
[2016-12-20 04:16] LABS: ABG ALLEN TEST YES; ARTERIAL BLOOD GAS HCO3 24.5 mmol/L (21-28); ARTERIAL BLOOD GAS PH 7.44 (7.35-7.45); ARTERIAL BLOOD GAS PO2 70 mm/Hg (80-100)
[2016-12-20] MEDS: Sodium Chloride 0.9% 1,000 ML IV SCH (04:21)
[2016-12-20] MEDS: Insulin Regular 100 units/ml SC SCH ×4 (07:06→21:04)
--- NOTE | 2016-12-20 07:18 | CP.PCM.HP ---
History of Present Illness - History of Present Illness History of Present Illness: Chief Complaint: N/V and weakness HPI: PT is a 76 y/o female who is a poor historian and no family present at the time of my examination who presents to the ED with progressive weakness and throat pain according to ER physician. PT has had an episode of vomiting and has had no bowel movement in 2-3 days but she came in bc family noted she was not in her usual state of health and has become weaker. She was found to have a UTI and on CT scan a pyelonephritis with additional findings suggesting possible ischemia with her lactic acid level at 1.4 . The family denies any cough, or fever, chest pain, SOB. Last Vital Signs Temp 98.2 F 12/20/16 02:53 Pulse 82 12/20/16 02:53 Resp 17 12/20/16 02:53 BP 109/61 12/20/16 02:53 Pulse Ox 96 12/20/16 03:56 PMH: Arthritis, Dementia, Diabetes, HTN, Schizophrenia, h/o UTI Surgical History: Cholecystectomy, Coronary Stent Family History: non contributary Home Medications: Ambulatory Orders Medication Instructions Recorded Insulin Detemir [Levemir] 15 units SC BID 06/29/14 Perphenazine 2 mg PO BID 06/29/14 Aspirin [Ecotrin] 81 mg PO DAILY #30 tabec 06/30/14 Carvedilol [Coreg] 3.125 mg PO BID #60 tab 06/30/14 Clopidogrel [Plavix] 75 mg PO DAILY #30 tab 06/30/14 Lisinopril 2.5 mg PO DAILY #30 tab 06/30/14 Rosuvastatin Calcium [Crestor] 10 mg PO HS #30 tab 06/30/14 Allergies: Allergies Allergy/AdvReac Type Severity Reaction Status Date / Time Penicillins Allergy RASH Verified 08/11/16 11:36 EXAM: CT Abdomen and Pelvis With Intravenous Contrast IMPRESSION: 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 Additional findings within the left renal artery, suggesting ischemia. Present on Admission - Present on Admission Any Indicators Present on Admission: No History of DVT/PE: No History of Uncontrolled Diabetes: Yes Urinary Catheter: No Decubitus Ulcer Present: Yes Review of Systems - Review of Systems Systems not reviewed;Unavailable: Dementia - Constitutional Constitutional: Lethargy - EENT Eyes: absent: As Per HPI, Blind Spots, Blurred Vision, Change in Vision, Decreased Night Vision, Diplopia, Discharge, Dry Eye, Exophthalmos, Floaters, Irritation, Itchy Eyes, Loss of Peripheral Vision, Pain, Photophobia, Requires Corrective Lenses, Sees Flashes, Spots in Vision, Tunnel Vision, Other Visual Disturbances, Loss of Vision, Other Ears: absent: As Per HPI, Decreased Hearing, Ear Discharge, Ear Pain, Tinnitus, Abnormal Hearing, Disequilibrium, Dizziness, Other Nose/Mouth/Throat: absent: As Per HPI, Epistaxis, Nasal Congestion, Nasal Discharge, Nasal Obstruction, Nasal Trauma, Nose Pain, Post Nasal Drip, Sinus Pain, Sinus Pressure, Bleeding Gums, Change in Voice, Dental Pain, Dry Mouth, Dysphagia, Halitosis, Hoarsness, Lip Swelling, Mouth Lesions, Mouth Pain, Odynophagia, Sore Throat, Throat Swelling, Tongue Swelling, Facial Pain, Neck Pain, Neck Mass, Other - Cardiovascular Cardiovascular: absent: As Per HPI, Acrocyanosis, Chest Pain, Chest Pain at Rest , Chest Pain with Activity, Claudication, Diaphoresis, Dyspnea, Dyspnea on Exertion, Edema, Irregular Heart Rhythm, Pain Radiating to Arm/Neck/Jaw, Leg Edema, Leg Ulcers, Lightheadedness, Orthopnea, Palpitations, Paroxysmal Nocturnal Dyspnea, Pedal Edema, Radiating Pain, Rapid Heart Rate, Slow Heart Rate, Syncope, Other - Respiratory Respiratory: absent: As Per HPI, Cough, Dyspnea, Hemoptysis, Dyspnea on Exertion , Wheezing, Snoring, Stridor, Pain on Inspiration, Chest Congestion, Excessive Mucous Production, Change in Mucous Color, Pain with Coughing, Other - Gastrointestinal Gastrointestinal: Abdominal Pain. absent: As Per HPI, Belching, Bloating, Change in Bowel Habits, Change in Stool Character, Coffee Ground Emesis, Constipation, Cramping, Diarrhea, Dyspepsia, Dysphagia, Early Satiety, Excessive Flatus, Fecal Incontinence, Heartburn, Hematemesis, Hematochezia, Loose Stools, Melena, Nausea, Odynophagia, Temesmus, Vomiting, Other - Genitourinary Genitourinary: Difficulty Urinating, Urinary Frequency, Freq UTI Past Patient History - Infectious Disease Hx of Infectious Diseases: None - Tetanus Immunizations Tetanus Immunization: Unknown - Past Medical History & Family History Past Medical History?: Yes - Past Social History Smoking Status: Former Smoker - CARDIAC Hx Cardiac Disorders: Yes Hx Hypertension: Yes - PULMONARY Hx Respiratory Disorders: No - NEUROLOGICAL Hx Neurological Disorder: Yes Hx Dementia: Yes - HEENT Hx HEENT Problems: No - RENAL Hx Chronic Kidney Disease: No - ENDOCRINE/METABOLIC Hx Endocrine Disorders: Yes Hx Diabetes Mellitus Type 1: Yes - HEMATOLOGICAL/ONCOLOGICAL Hx Blood Disorders: No - INTEGUMENTARY Hx Dermatological Problems: No - MUSCULOSKELETAL/RHEUMATOLOGICAL Hx Musculoskeletal Disorders: Yes Hx Arthritis: Yes Hx Falls: Yes - GASTROINTESTINAL Hx Gastrointestinal Disorders: Yes Hx Nausea: Yes Hx Vomiting: Yes - GENITOURINARY/GYNECOLOGICAL Hx Genitourinary Disorders: No - PSYCHIATRIC Hx Psychophysiologic Disorder: Yes Hx Schizophrenia: Yes Hx Substance Use: No - SURGICAL HISTORY Hx Surgeries: Yes Hx Cholecystectomy: Yes Hx Coronary Stent: Yes - ANESTHESIA Hx Anesthesia: Yes Hx Anesthesia Reactions: No Hx Malignant Hyperthermia: No Has any member of the family had a problem w/ anesthesia?: No Meds Allergies/Adverse Reactions: Allergies Allergy/AdvReac Type Severity Reaction Status Date / Time Penicillins Allergy RASH Verified 08/11/16 11:36 Physical Exam - Constitutional Appears: No Acute Distress, Confused - Head Exam Head Exam: ATRAUMATIC, NORMAL INSPECTION, NORMOCEPHALIC - Eye Exam Eye Exam: EOMI, Normal appearance, PERRL Pupil Exam: NORMAL ACCOMODATION, PERRL - ENT Exam ENT Exam: Mucous Membranes Moist, Normal Exam - Neck Exam Neck exam: Positive for: Normal Inspection - Respiratory Exam Respiratory Exam: NORMAL BREATHING PATTERN - Cardiovascular Exam Cardiovascular Exam: REGULAR RHYTHM, +S1, +S2 - GI/Abdominal Exam GI & Abdominal Exam: Normal Bowel Sounds, Soft - Rectal Exam Rectal Exam: Deferred - Neurological Exam Neurological exam: CN II-XII Intact, Reflexes Normal - Psychiatric Exam Psychiatric exam: Flat Affect - Skin Skin Exam: Dry Additional comments: 2 ulcers in sacrum and right buttocks Results - Vital Signs Recent Vital Signs: Last Vital Signs Temp 98.2 F 12/20/16 05:07 Pulse 75 12/20/16 05:21 Resp 18 12/20/16 05:21 BP 109/61 12/20/16 05:07 Pulse Ox 96 12/20/16 04:06 - Labs Result Diagrams: 12/19/16 23:00 12/19/16 23:00 Labs: Laboratory Results - last 24 hr 12/20/16 12/20/16 04:05 07:03 pCO2 34 L pO2 70 L HCO3 24.5 ABG pH 7.44 ABG Total CO2 24.1 ABG O2 Saturation 99.7 H ABG Base Excess -0.5 [place] Test Yes ABG Potassium 4.2 A-a O2 Difference 37.0 Sodium 129.0 L Chloride 101.0 Glucose 280 H Lactate 1.4 FiO2 21.0 POC Glucose (mg/dL) 215 H Arterial Blood Potassium 4.2 Assessment & Plan - Assessment and Plan (Free Text) Assessment: Pt is a 76 yo female with baseline dementia who comes in secondary to n/v and lethargy found to have positive UTI and pyelonephritis. Plan: 1) UTI and Pyelonephritis- - start iv abx with ciprofloxacin 400 mg iv BID - monitor serial lactate and continue with iv fluids - currently WBC is 20, afebrile will consider ID consult if no improvement in AM Labs - AM labs still pending 2) dementia- probably at baseline 3) constipation- iv fluids along with colace and/or miralax 4) htn- will hold of on any bp medications as she has been well controlled and want to avoid dropping her blood pressure 5) DM- serial accuchecks and insulin sliding scale 6) GI and DVT prophylaxis - Date & Time Date: 12/20/16 Time: 07:35
--- NOTE | 2016-12-20 10:21 | RAD ---
PROCEDURE: CHEST RADIOGRAPH, 1 VIEW HISTORY: n/v weakness COMPARISON: None available. FINDINGS: LUNGS: Clear. PLEURA: No pneumothorax or pleural fluid seen. CARDIOVASCULAR: Normal. OSSEOUS STRUCTURES: No significant abnormalities. VISUALIZED UPPER ABDOMEN: Normal. OTHER FINDINGS: None. IMPRESSION: No active disease.
[2016-12-20 10:22] LABS: BASO # 0.1 K/uL (0.0-0.2); BASO % 0.3 % (0.0-2.0); EOS % 0.1 % (0.0-4.0); HEMATOCRIT 32.9 % (34.0-47.0); LYMPH # 2.1 K/uL (1.0-4.3); LYMPH % 10.4 % (20.0-40.0); MEAN CELL VOLUME 90.9 fl (81.0-99.0); MEAN CORPUSCULAR HEMOGLOBIN 31.3 pg (27.0-31.0); MEAN CORPUSCULAR HGB CONC 34.4 g/dL (33.0-37.0); MEAN PLATELET VOLUME 7.9 fl (7.2-11.7); MONO # 2.1 K/uL (0.0-0.8); NEUT # 16.3 K/uL (1.8-7.0); NEUT % 79.2 % (50.0-75.0); WHITE BLOOD COUNT 20.6 K/uL (4.8-10.8)
--- NOTE | 2016-12-20 10:36 | CARD ---
APPROVED REPORT EKG Measurement Heart [id number] <Conclusion> Normal sinus rhythm Left ventricular hypertrophy with repolarization abnormality Cannot rule out Septal infarct, age undetermined Prolonged QT Abnormal ECG
[2016-12-20 10:44] LABS: BLOOD UREA NITROGEN 21 mg/dl (7-17); CARBON DIOXIDE 21 mmol/L (22-30); CHLORIDE 103 mmol/L (98-107); GFR AFRICAN-AMERICAN > 60; GLUCOSE,RANDOM 343 mg/dL (65-105); POTASSIUM 4.1 MMOL/L (3.6-5.0); SODIUM 132 mmol/l (132-148)
[2016-12-20] MEDS: Ciprofloxacin 400mg/200ml D5W 400 MG/200 ML BAG IVPB SCH ×2 (11:38→20:32)
[2016-12-20] MEDS ORDERED: Insulin Detemir 100 Units/ml Inj SC SCH (22:00)
[2016-12-21] MEDS: Sodium Chloride 0.9% 1,000 ML IV SCH ×3 (00:11→21:11)
[2016-12-21] MEDS: Insulin Regular 100 units/ml SC SCH ×4 (06:42→21:12)
[2016-12-21] MEDS: Ciprofloxacin 400mg/200ml D5W 400 MG/200 ML BAG IVPB SCH (08:24)
[2016-12-21 08:25] LABS: BASO % 0.2 % (0.0-2.0); EOS # 0.1 K/uL (0.0-0.7); EOS % 0.3 % (0.0-4.0); HEMATOCRIT 35.9 % (34.0-47.0); LYMPH # 2.1 K/uL (1.0-4.3); LYMPH % 11.4 % (20.0-40.0); MEAN CELL VOLUME 90.5 fl (81.0-99.0); MEAN CORPUSCULAR HEMOGLOBIN 31.2 pg (27.0-31.0); MEAN CORPUSCULAR HGB CONC 34.4 g/dL (33.0-37.0); MEAN PLATELET VOLUME 8.1 fl (7.2-11.7); MONO # 1.5 K/uL (0.0-0.8); MONO % 8.5 % (0.0-10.0); NEUT # 14.3 K/uL (1.8-7.0); NEUT % 79.6 % (50.0-75.0); RED CELL DISTRIBUTION WIDTH 13.2 % (11.5-14.5)
[2016-12-21] MEDS: Insulin Detemir 100 Units/ml Inj SC SCH ×2 (08:26→21:43)
[2016-12-21 08:32] LABS: BILIRUBIN,TOTAL 0.6 mg/dl (0.2-1.3); CALCIUM 8.8 mg/dL (8.4-10.2); MAGNESIUM 1.8 MG/DL (1.6-2.3); POTASSIUM 4.2 MMOL/L (3.6-5.0); TOTAL PROTEIN 6.8 G/DL (6.3-8.2)
--- NOTE | 2016-12-21 10:17 | CP.PCM.PN ---
Subjective - Date & Time of Evaluation Date of Evaluation: 12/21/16 Time of Evaluation: 09:30 - Subjective Subjective: No fever this am she states she feels better still with dysuria denies flank pain has sl hypogastric discomfot no CP no SOB occ cough Follows simple commands oriented to person and place moves all extremities Objective - Vital Signs/Intake and Output Vital Signs (last 24 hours): Temp Pulse Resp BP Pulse Ox 98.5 F 74 18 155/78 H 95 12/21/16 08:28 12/21/16 08:28 12/21/16 08:28 12/21/16 08:28 12/21/16 08:28 - Medications Medications: Current Medications Aspirin (Ecotrin) 81 mg PO DAILY [facility] Last Admin: 12/21/16 08:25 Dose: 81 mg Atorvastatin Calcium (Lipitor) 40 mg PO DAILY [facility] Last Admin: 12/21/16 08:25 Dose: 40 mg Clopidogrel Bisulfate (Plavix) 75 mg PO DAILY [facility] Last Admin: 12/21/16 08:25 Dose: 75 mg Dextrose (Dextrose 50% Inj) 0 ml IV STAT PRN; Protocol PRN Reason: Hyglycemia Protocol Dextrose (Glutose 15) 0 gm PO ONCE PRN; Protocol PRN Reason: Hypoglycemia Protocol Glucagon (Glucagen Diagnostic Kit) 0 mg IM STAT PRN; Protocol PRN Reason: Hypoglycemia Protocol Ciprofloxacin (Cipro 400mg/200ml Dsw) 400 mg in 200 mls @ 200 mls/hr IVPB Q12 [facility] Last Admin: 12/21/16 08:24 Dose: 200 mls/hr Sodium Chloride (Sodium Chloride 0.9%) 1,000 mls @ 80 mls/hr IV .[id number] [facility] Stop: 12/22/16 09:19 Insulin Detemir (Levemir) 15 units SC Q12 [facility] Last Admin: 12/21/16 08:26 Dose: 15 units Insulin Human Regular (Humulin R) 0 units SC ACHS [facility] PRN Reason: Protocol Last Admin: 12/21/16 06:42 Dose: 8 units - Labs Labs: 12/21/16 07:00 12/21/16 07:00 - Constitutional Appears: No Acute Distress - Head Exam Head Exam: NORMAL INSPECTION, NORMOCEPHALIC - Eye Exam Eye Exam: EOMI Pupil Exam: NORMAL ACCOMODATION Additional comments: left lid lag - ENT Exam ENT Exam: Mucous Membranes Moist, Normal Oropharynx - Neck Exam Neck Exam: Full ROM. absent: Meningismus - Respiratory Exam Respiratory Exam: Rhonchi, NORMAL BREATHING PATTERN. absent: Respiratory Distress - Cardiovascular Exam Cardiovascular Exam: REGULAR RHYTHM, +S1, +S2 - GI/Abdominal Exam GI & Abdominal Exam: Soft, Tenderness (mild hypogastric tendrness), Normal Bowel Sounds - Extremities Exam Extremities Exam: Full ROM, Normal Capillary Refill. absent: Calf Tenderness - Back Exam Back Exam: absent: CVA tenderness (L), CVA tenderness (R) - Neurological Exam Neurological Exam: Alert, Awake, CN II-XII Intact Neuro motor strength exam: Left Upper Extremity: 4, Right Upper Extremity: 4, Left Lower Extremity: 4, Right Lower Extremity: 4 Additional comments: oriented to person and place - Psychiatric Exam Psychiatric exam: Flat Affect - Skin Skin Exam: Dry, Normal Color, Warm Assessment and Plan (1) Sepsis Status: Acute (2) UTI (urinary tract infection) Status: Acute (3) Uncontrolled type 2 diabetes mellitus with hyperglycemia Status: Chronic (4) Schizophrenia Status: Chronic (5) HTN (hypertension) Status: Chronic - Assessment and Plan (Free Text) Assessment: 76 y/o lady with hx of Schizophrenia, HTN, DM, Dementia, was brought in bec of fever and lethargy (1) Sepsis sec to UTI Status: Acute Pt came in with fever, leukocytosis, lethargy, Urinalysis showed marked pyuria, bacteriuria and Leukoest Urine c/s: Gram neg rods Pt is allergic to PCN- started on IV Cipro IVF hydration ID consult- Dr Encarnacion WBC ct sl better 18k from 20k (2) UTI (urinary tract infection) Status: Acute as above (3) Uncontrolled type 2 diabetes mellitus with hyperglycemia Status: Chronic cont Levemir 15 units sq q 12 accucheck with coverage (4) Schizophrenia Status: Chronic stable will check with [facility] pharmacy medication list in am since does not know (5) HTN (hypertension) Status: Chronic restart Coreg DVT proph - start Lovenox
--- NOTE | 2016-12-21 14:33 | CP.PCM.CON ---
History of Present Illness - History of Present Illness History of Present Illness: 76 y/o female who is a poor historian presented to the ED with progressive weakness and throat pain . PT has had an episode of vomiting and has had no bowel movement in 2-3 days but she came in bc family noted she was not in her usual state of health and has become weaker. She was found to have a UTI and on CT scan a pyelonephritis with additional findings suggesting possible ischemia with her lactic acid level at 1.4 . The family denies any cough, or fever, chest pain, SOB. PMH: Arthritis, Dementia, Diabetes, HTN, Schizophrenia, h/o UTI Surgical History: Cholecystectomy, Coronary Stent Review of Systems - Review of Systems Systems not reviewed;Unavailable: Altered Mental Status - Constitutional Constitutional: As Per HPI, Anorexia - EENT Eyes: absent: As Per HPI, Blind Spots, Blurred Vision, Change in Vision, Decreased Night Vision, Diplopia, Discharge, Dry Eye, Exophthalmos, Floaters, Irritation, Itchy Eyes, Loss of Peripheral Vision, Pain, Photophobia, Requires Corrective Lenses, Sees Flashes, Spots in Vision, Tunnel Vision, Other Visual Disturbances, Loss of Vision, Other Ears: absent: As Per HPI, Decreased Hearing, Ear Discharge, Ear Pain, Tinnitus, Abnormal Hearing, Disequilibrium, Dizziness, Other Nose/Mouth/Throat: absent: As Per HPI, Epistaxis, Nasal Congestion, Nasal Discharge, Nasal Obstruction, Nasal Trauma, Nose Pain, Post Nasal Drip, Sinus Pain, Sinus Pressure, Bleeding Gums, Change in Voice, Dental Pain, Dry Mouth, Dysphagia, Halitosis, Hoarsness, Lip Swelling, Mouth Lesions, Mouth Pain, Odynophagia, Sore Throat, Throat Swelling, Tongue Swelling, Facial Pain, Neck Pain, Neck Mass, Other - Breasts Breasts: absent: As Per HPI, Change in Shape, Mass, Pain, Nipple Discharge, Nipple Inversion, Skin Changes, Swelling, Other - Cardiovascular Cardiovascular: As Per HPI - Respiratory Respiratory: absent: As Per HPI, Cough, Dyspnea, Hemoptysis, Dyspnea on Exertion , Wheezing, Snoring, Stridor, Pain on Inspiration, Chest Congestion, Excessive Mucous Production, Change in Mucous Color, Pain with Coughing, Other - Gastrointestinal Gastrointestinal: As Per HPI, Abdominal Pain - Genitourinary Genitourinary: As Per HPI - Reproductive: Female Reproductive:Female: absent: As Per HPI, Amenorrhea, Amenorrhea/ Control, Currently Menstual, Cycle <21 Days, Cycle >35 Days, Cycle Variable, Menses 1-7 Days, Menses >/= 8 Days, Menses Variable, Cycle > 4 Weeks Between, No Menses for 6 Months, Heavy Menses, Light Menses, Normal Menses, Spotting Between Cycles , S/P Hysterectomy, Menopausal, Post Menopausal, Premenarche, Abnormal Vaginal Bleeding, Dysmenorrhea, Dyspareunia, Genital Lesions, Genital Pruritis, Pelvic Pain, Prolapse Symptoms, Sexual Dysfunction, Vaginal Discharge, Vaginal Dryness , Vaginal Odor, Vaginal Pruritis, Other - Menstruation Menstruation: absent: As Per HPI, Amenorrhea, Amenorrhea/ Control, Currently Menstual, Cycle <21 Days, Cycle >35 Days, Cycle Variable, Menses 1-7 Days, Menses >/= 8 Days, Menses Variable, Cycle > 4 Weeks Between, No Menses for 6 Months, Heavy Menses, Light Menses, Normal Menses, Spotting Between Cycles , S/P Hysterectomy, Menopausal, Post Menopausal, Premenarche, Abnormal Vaginal Bleeding, Dysmenorrhea, Other - Musculoskeletal Musculoskeletal: absent: As Per HPI, Abnormal Gait, Arthralgias, Atrophy, Back Pain, Deformity, Joint Swelling, Limited Range of Motion, Loss of Height, Muscle Cramps, Muscle Weakness, Myalgias, Neck Pain, Numbness, Radiating Pain into Limb, Stiffness, Tingling, Other - Integumentary Integumentary: absent: As Per HPI, Acne, Alopecia, Bleeding Lesions, Change in Hair, Change in Nails, Change in Pigmentation, Changing Lesions, Dry Skin, Erythema, Furuncle, Hirsutism, Lesions, New Lesions, Non-Healing Lesions, Photosensitivity, Pruritus, Rash, Skin Pain, Skin Ulcer, Sores, Striae, Swelling , Unusual Bruising, Wounds, Jaundice, Other - Neurological Neurological: absent: As Per HPI, Abnormal Gait, Abnormal Hearing, Abnormal Movements, Abnormal Speech, Behavioral Changes, Burning Sensations, Confusion, Convulsions, Disequilibrium, Dizziness, Numbness, Focal Weakness, Frequent Falls , Headaches, Lack of Coordination, Loss of Vision, Memory Loss, Paresthesias, Radicular Pain, Restless Legs, Sensory Deficit, Syncope, Tingling, Tremor, Vertigo, Weakness, Other Visual Disturbances, Other - Psychiatric Psychiatric: absent: As Per HPI, Abnormal Sleep Pattern, Anhedonia, Anxiety, Auditory Hallucinations, Behavioral Changes, Change in Appetite, Change in Libido, Confusion, Depression, Difficulty Concentrating, Hallucinations, Homicidal Ideation, Hopelessness, Irritability, Memory Loss, Mood Swings, Panic Attacks, Paranoia, Suicidal Ideation, Visual Hallucinations, Tactile Hallucinations, Other - Endocrine Endocrine: absent: As Per HPI, Change in Body Appearance, Change in Libido, Cold Intolorance, Deepening of Voice, Excessive Sweating, Fatigue, Flushing, Heat Intolorance, Increase in Ring/Shoe/Hat Size, Palpitations, Polydipsia, Polyphagia, Polyuria, Other - Hematologic/Lymphatic Hematologic: absent: As Per HPI, Easy Bleeding, Easy Bruising, Lymphadenopathy, Other Past Patient History - Infectious Disease Hx of Infectious Diseases: None - Tetanus Immunizations Tetanus Immunization: Unknown - Past Medical History & Family History Past Medical History?: Yes - Past Social History Smoking Status: Former Smoker - CARDIAC Hx Cardiac Disorders: Yes Hx Hypertension: Yes - PULMONARY Hx Respiratory Disorders: No - NEUROLOGICAL Hx Neurological Disorder: Yes Hx Dementia: Yes - HEENT Hx HEENT Problems: No - RENAL Hx Chronic Kidney Disease: No - ENDOCRINE/METABOLIC Hx Endocrine Disorders: Yes Hx Diabetes Mellitus Type 1: Yes - HEMATOLOGICAL/ONCOLOGICAL Hx Blood Disorders: No - INTEGUMENTARY Hx Dermatological Problems: No - MUSCULOSKELETAL/RHEUMATOLOGICAL Hx Musculoskeletal Disorders: Yes Hx Arthritis: Yes Hx Falls: Yes - GASTROINTESTINAL Hx Gastrointestinal Disorders: Yes Hx Nausea: Yes Hx Vomiting: Yes - GENITOURINARY/GYNECOLOGICAL Hx Genitourinary Disorders: No - PSYCHIATRIC Hx Psychophysiologic Disorder: Yes Hx Schizophrenia: Yes Hx Substance Use: No - SURGICAL HISTORY Hx Surgeries: Yes Hx Cholecystectomy: Yes Hx Coronary Stent: Yes - ANESTHESIA Hx Anesthesia: Yes Hx Anesthesia Reactions: No Hx Malignant Hyperthermia: No Has any member of the family had a problem w/ anesthesia?: No Meds Allergies/Adverse Reactions: Allergies Allergy/AdvReac Type Severity Reaction Status Date / Time Penicillins Allergy RASH Verified 08/11/16 11:36 - Medications Medications: Current Medications Aspirin (Ecotrin) 81 mg PO DAILY [facility] Last Admin: 12/21/16 08:25 Dose: 81 mg Atorvastatin Calcium (Lipitor) 40 mg PO DAILY [facility] Last Admin: 12/21/16 08:25 Dose: 40 mg Carvedilol (Coreg) 3.125 mg PO Q12 [facility] Clopidogrel Bisulfate (Plavix) 75 mg PO DAILY [facility] Last Admin: 12/21/16 08:25 Dose: 75 mg Dextrose (Dextrose 50% Inj) 0 ml IV STAT PRN; Protocol PRN Reason: Hyglycemia Protocol Dextrose (Glutose 15) 0 gm PO ONCE PRN; Protocol PRN Reason: Hypoglycemia Protocol Glucagon (Glucagen Diagnostic Kit) 0 mg IM STAT PRN; Protocol PRN Reason: Hypoglycemia Protocol Ciprofloxacin (Cipro 400mg/200ml Dsw) 400 mg in 200 mls @ 200 mls/hr IVPB Q12 [facility] Last Admin: 12/21/16 08:24 Dose: 200 mls/hr Sodium Chloride (Sodium Chloride 0.9%) 1,000 mls @ 80 mls/hr IV .[id number] [facility] Stop: 12/22/16 09:19 Last Admin: 12/21/16 13:11 Dose: 80 mls/hr Insulin Detemir (Levemir) 15 units SC Q12 [facility] Last Admin: 12/21/16 08:26 Dose: 15 units Insulin Human Regular (Humulin R) 0 units SC ACHS [facility] PRN Reason: Protocol Last Admin: 12/21/16 13:05 Dose: 4 units Physical Exam - Constitutional Appears: Non-toxic, Chronically Ill - Head Exam Head Exam: NORMOCEPHALIC - Eye Exam Eye Exam: PERRL. absent: Scleral icterus - ENT Exam ENT Exam: Mucous Membranes Dry, Normal External Ear Exam - Neck Exam Neck exam: Negative for: Lymphadenopathy - Respiratory Exam Respiratory Exam: Decreased Breath Sounds, Clear to Auscultation Bilateral - Cardiovascular Exam Cardiovascular Exam: REGULAR RHYTHM, +S1, +S2 - GI/Abdominal Exam GI & Abdominal Exam: Diminished Bowel Sounds, Soft. absent: Tenderness - Rectal Exam Rectal Exam: Deferred - Exam Exam: NORMAL INSPECTION - Extremities Exam Extremities exam: Positive for: pedal pulses present. Negative for: calf tenderness, pedal edema, tenderness - Back Exam Back exam: absent: CVA tenderness (L), CVA tenderness (R), paraspinal tenderness - Neurological Exam Neurological exam: Alert, CN II-XII Intact, Oriented x3, Reflexes Normal - Psychiatric Exam Psychiatric exam: Normal Mood - Skin Skin Exam: Dry Results - Vital Signs Recent Vital Signs: Last Vital Signs Temp 98.4 F 12/21/16 12:00 Pulse 87 12/21/16 12:00 Resp 18 12/21/16 12:00 BP 128/71 12/21/16 12:00 Pulse Ox 96 12/21/16 12:00 - Labs Result Diagrams: 12/21/16 07:00 12/21/16 07:00 Labs: Laboratory Results - last 24 hr 12/20/16 12/20/16 12/21/16 15:55 20:56 05:33 WBC RBC Hgb Hct MCV MCH MCHC RDW Plt Count MPV Neut % (Auto) Lymph % (Auto) [place] % (Auto) Eos % (Auto) Baso % (Auto) Neut # Lymph # [place] # Eos # Baso # Sodium Potassium Chloride Carbon Dioxide Anion Gap BUN Creatinine Est GFR ( Amer) Est GFR (Non-Af Amer) POC Glucose (mg/dL) 345 H 273 H 367 H Random Glucose Calcium Magnesium Total Bilirubin AST ALT Alkaline Phosphatase Total Protein Albumin Globulin Albumin/Globulin Ratio 12/21/16 12/21/16 12/21/16 07:00 07:00 11:53 WBC 18.0 H RBC 3.96 Hgb 12.3 Hct 35.9 MCV 90.5 MCH 31.2 H MCHC 34.4 RDW 13.2 Plt Count 173 MPV 8.1 Neut % (Auto) 79.6 H Lymph % (Auto) 11.4 L [place] % (Auto) 8.5 Eos % (Auto) 0.3 Baso % (Auto) 0.2 Neut # 14.3 H Lymph # 2.1 [place] # 1.5 H Eos # 0.1 Baso # 0.0 Sodium 133 Potassium 4.2 Chloride 101 Carbon Dioxide 24 Anion Gap 12 BUN 18 H Creatinine 1.1 Est GFR ( Amer) 58 Est GFR (Non-Af Amer) 48 POC Glucose (mg/dL) 258 H Random Glucose 246 H Calcium 8.8 Magnesium 1.8 Total Bilirubin 0.6 AST 44 H D ALT 42 Alkaline Phosphatase 87 Total Protein 6.8 Albumin 3.4 L D Globulin 3.4 Albumin/Globulin Ratio 1.0 Assessment & Plan - Assessment and Plan (Free Text) Assessment: CT FINDINGS: Lower thorax: Moderate bibasilar airspace disease. ABDOMEN: Liver: No acute findings. Gallbladder and bile ducts: The gallbladder is surgically absent. No significant intra- or extrahepatic biliary ductal dilation. Pancreas: Enhances homogeneously. No ductal dilation. No discrete mass. Spleen: No acute findings. Adrenals: No acute findings. Kidneys and ureters: Size asymmetry between the bilateral kidneys, with the left being larger than the right. Preservation of the reniform shape. Multiple low-attenuation lesions scattered throughout the kidney. Obliteration of the renal sinus fat. No calculi or hydronephrosis identified. PELVIS: Bladder: No acute findings. Reproductive: No acute findings. Appendix: The air filled appendix is of normal caliber (series 2, image 36). ABDOMEN and PELVIS: Stomach and bowel: No obstruction. No mucosal thickening. Peritoneum: No significant fluid collection. No free air. Lymph nodes: No pathologically enlarged lymph nodes. Vasculature: High-grade stenosis of the left renal artery. Bones: No acute findings. 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 Additional findings within the left renal artery, suggesting ischemia. Plan: possible chronic pyelo/uti as cause of current illness agree with IV antibiotics may need to treat for 4-6 weeks for chronic pyel await cultures
[2016-12-21] MEDS: levoFLOXacin 500 mg in D5W 500 MG/100 ML BAG IVPB SCH (17:17)
[2016-12-22 06:12] LABS: BASO % 0.3 % (0.0-2.0); EOS # 0.1 K/uL (0.0-0.7); EOS % 1.1 % (0.0-4.0); HEMATOCRIT 32.8 % (34.0-47.0); LYMPH # 2.1 K/uL (1.0-4.3); LYMPH % 16.3 % (20.0-40.0); MEAN CELL VOLUME 89.7 fl (81.0-99.0); MEAN CORPUSCULAR HGB CONC 34.5 g/dL (33.0-37.0); MONO # 1.2 K/uL (0.0-0.8); MONO % 9.3 % (0.0-10.0); NEUT # 9.6 K/uL (1.8-7.0); RED CELL DISTRIBUTION WIDTH 12.8 % (11.5-14.5); WHITE BLOOD COUNT 13.2 K/uL (4.8-10.8)
[2016-12-22 06:25] LABS: CALCIUM 8.4 mg/dL (8.4-10.2); POTASSIUM 4.2 MMOL/L (3.6-5.0)
[2016-12-22] MEDS: Insulin Regular 100 units/ml SC SCH ×4 (06:40→21:43)
[2016-12-22] MEDS: Enoxaparin 40 mg Syringe SC SCH (08:53)
[2016-12-22] MEDS: Insulin Detemir 100 Units/ml Inj SC SCH ×2 (08:55→21:42)
[2016-12-22] MEDS: levoFLOXacin 500 mg in D5W 500 MG/100 ML BAG IVPB SCH (09:50)
--- NOTE | 2016-12-22 13:43 | CP.PCM.PN ---
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 PO Objective - Vital Signs/Intake and Output Vital Signs (last 24 hours): Temp Pulse Resp BP Pulse Ox 98.2 F 83 20 115/68 96 12/22/16 12:00 12/22/16 12:00 12/22/16 12:00 12/22/16 12:00 12/22/16 12:00 Intake and Output: 12/22/16 12/22/16 06:59 18:59 Intake Total 500 300 Balance 500 300 - Medications Medications: Current Medications Amlodipine Besylate (Norvasc) 5 mg PO DAILY [facility] Last Admin: 12/22/16 08:54 Dose: 5 mg Aspirin (Ecotrin) 81 mg PO DAILY [facility] Last Admin: 12/22/16 08:54 Dose: 81 mg Atorvastatin Calcium (Lipitor) 40 mg PO DAILY [facility] Last Admin: 12/22/16 08:54 Dose: 40 mg Carvedilol (Coreg) 3.125 mg PO Q12 [facility] Last Admin: 12/22/16 08:54 Dose: 3.125 mg Clopidogrel Bisulfate (Plavix) 75 mg PO DAILY [facility] Last Admin: 12/22/16 08:55 Dose: 75 mg Dextrose (Dextrose 50% Inj) 0 ml IV STAT PRN; Protocol PRN Reason: Hyglycemia Protocol Dextrose (Glutose 15) 0 gm PO ONCE PRN; Protocol PRN Reason: Hypoglycemia Protocol Enoxaparin Sodium (Lovenox) 40 mg SC DAILY [facility] PRN Reason: Protocol Last Admin: 12/22/16 08:53 Dose: 40 mg Glucagon (Glucagen Diagnostic Kit) 0 mg IM STAT PRN; Protocol PRN Reason: Hypoglycemia Protocol Levofloxacin/Dextrose (Levaquin 500mg) 500 mg in 100 mls @ 100 mls/hr IVPB DAILY [facility] Last Admin: 12/22/16 09:50 Dose: 100 mls/hr Insulin Detemir (Levemir) 15 units SC Q12 [facility] Last Admin: 12/22/16 08:55 Dose: 15 units Insulin Human Regular (Humulin R) 0 units SC ACHS [facility] PRN Reason: Protocol Last Admin: 12/22/16 12:13 Dose: 4 units Lisinopril (Zestril) 10 mg PO DAILY [facility] Last Admin: 12/22/16 08:54 Dose: 10 mg - Labs Labs: 12/22/16 05:36 12/22/16 05:36
--- NOTE | 2016-12-22 13:56 | PQF GENQUE ---
Dr. Anne, Sepsis: POA? OR: Disagree OR: Other explanation of clinical finding H and P: found to have positive UTI and pyelonephritis. Plan: 1) UTI and Pyelonephritis- - start iv abx with ciprofloxacin 400 mg iv BID - monitor serial lactate and continue with iv fluids - currently WBC is 20, afebrile will consider ID consult if no improvement in AM Labs - AM labs still pending see full note in the EMR 12/21: Attending progress note: 1) Sepsis sec to UTI Status: Acute Pt came in with fever, leukocytosis, lethargy, Urinalysis showed marked pyuria, bacteriuria and Leukoest Urine c/s: Gram neg rods Pt is allergic to PCN- started on IV Cipro IVF hydration ID consult- Dr Encarnacion WBC ct sl better 18k from 20k (2) UTI (urinary tract infection) Status: Acute as above (3) Uncontrolled type 2 diabetes mellitus with hyperglycemia Status: Chronic cont Levemir 15 units sq q 12 accucheck with coverage Temperature:101->98.2----12/21: temp max:99.9 WBC:20.3->20.6->18->13.2 left shift This form is a permanent part of the medical record Clarification of your documentation is requested to better reflect the severity of illness and intensity of treatment of your patient. Indicators present [] Specify: [] [] Specify: [] [] Specify: [] [] Specify: [] Location in the medical record that reflects the above clinical findings: [] Treatment Provided: [] PHYSICIAN'S RESPONSE Based on your medical judgment of the clinical indicators outlined above please clarify the following: Patient had Sepsis POA See progress note for details [x] Practitioner response [] If unable to determine, please check the box, sign and date. Present On Admission (POA) Indicator: [] Present at the time of admission [] Not present at the time of admission [] Clinically Undetermined In responding to this query, please exercise your independent professional judgment. The fact that a question is asked does not imply that any particular answer is desired or expected. Thank you for your clarification on this documentation. If you have any questions please call. * Thank you, Karen Aly RN BSN ext. #[phone] MTDD
--- NOTE | 2016-12-22 14:11 | PQF GENQUE ---
Dr. Anne, Clarification regarding the buttock ulcer listed in the H and P: (1) type of ulcer? (2) Stage of ulcer: if the buttock ulcer is a Pressure Ulcer? OR:Other explanation of clinical finding OR: Unable to determine H and P: Present on Admission: Decubitus Ulcer Present: Yes; Skin Assessment: 2 ulcers in sacrum and right buttocks 12/20 slip mixer: pressure ulcer assess: Sacrum: partial thickness loss of dermis presenting as as a shallow ulcer 12/22; Wound RN consut: MARCELA rt. buttock and redness sacral This form is a permanent part of the medical record Clarification of your documentation is requested to better reflect the severity of illness and intensity of treatment of your patient. Indicators present [] Specify: [] [] Specify: [] [] Specify: [] [] Specify: [] Location in the medical record that reflects the above clinical findings: [] Treatment Provided: [] PHYSICIAN'S RESPONSE Stage I decubitus ulcer POA ( moisture related ) Based on your medical judgment of the clinical indicators outlined above please clarify the following: [] Practitioner response [] If unable to determine, please check the box, sign and date. Present On Admission (POA) Indicator: [] Present at the time of admission [] Not present at the time of admission [] Clinically Undetermined In responding to this query, please exercise your independent professional judgment. The fact that a question is asked does not imply that any particular answer is desired or expected. Thank you for your clarification on this documentation. If you have any questions please call. * Thank you, Karen Aly RN BSN ext. #[phone] MTDD
[2016-12-22] MEDS ORDERED: Lidocaine 1% Inj (20ml) ONE (15:20)
--- NOTE | 2016-12-22 15:21 | PCM.SURG1 ---
Surgeon's Initial Post Op Note - Surgeon's Notes Surgeon: Rodrigo Mir MD Metal Sorter: NOne Type of Anesthesia: Local Pre-Operative Diagnosis: Poor venous access Operative Findings: Patent right basilic vein Post-Operative Diagnosis: Poor venous access Operation Performed: Single lumen picc placement right basilic vein, 35 cm. Tip in the SVC. Specimen/Specimens Removed: NOne Estimated Blood Loss: EBL {In ML}: 2 Blood Products Given: N/A Drains Used: No Drains Post-Op Condition: Fair Date of Surgery/Procedure: 12/22/16 Time of Surgery/Procedure: 15:30
--- NOTE | 2016-12-22 18:33 | CP.PCM.PN ---
Subjective - Date & Time of Evaluation Date of Evaluation: 12/22/16 Time of Evaluation: 10:30 - Subjective Subjective: Patient seen and evaluated bedside. Elderly female, demented lying in bed in NAD. Denies any pain. She is awake and alert , pale. Bp 138/75 HR 82 Tmax 99.9 last 24 hours WBC trended down from 20 K -- 13 k Urine cx positive for E.coli Objective - Vital Signs/Intake and Output Vital Signs (last 24 hours): Temp Pulse Resp BP Pulse Ox 98 F 90 18 132/69 96 12/22/16 17:00 12/22/16 17:00 12/22/16 17:00 12/22/16 17:00 12/22/16 15:39 Intake and Output: 12/22/16 12/22/16 06:59 18:59 Intake Total 500 300 Balance 500 300 - Medications Medications: Current Medications Amlodipine Besylate (Norvasc) 5 mg PO DAILY [facility] Last Admin: 12/22/16 08:54 Dose: 5 mg Aspirin (Ecotrin) 81 mg PO DAILY [facility] Last Admin: 12/22/16 08:54 Dose: 81 mg Atorvastatin Calcium (Lipitor) 40 mg PO DAILY [facility] Last Admin: 12/22/16 08:54 Dose: 40 mg Carvedilol (Coreg) 3.125 mg PO Q12 [facility] Last Admin: 12/22/16 08:54 Dose: 3.125 mg Clopidogrel Bisulfate (Plavix) 75 mg PO DAILY [facility] Last Admin: 12/22/16 08:55 Dose: 75 mg Dextrose (Dextrose 50% Inj) 0 ml IV STAT PRN; Protocol PRN Reason: Hyglycemia Protocol Dextrose (Glutose 15) 0 gm PO ONCE PRN; Protocol PRN Reason: Hypoglycemia Protocol Enoxaparin Sodium (Lovenox) 40 mg SC DAILY [facility] PRN Reason: Protocol Last Admin: 12/22/16 08:53 Dose: 40 mg Glucagon (Glucagen Diagnostic Kit) 0 mg IM STAT PRN; Protocol PRN Reason: Hypoglycemia Protocol Levofloxacin/Dextrose (Levaquin 500mg) 500 mg in 100 mls @ 100 mls/hr IVPB DAILY [facility] Last Admin: 12/22/16 09:50 Dose: 100 mls/hr Insulin Detemir (Levemir) 15 units SC Q12 [facility] Last Admin: 12/22/16 08:55 Dose: 15 units Insulin Human Regular (Humulin R) 0 units SC ACHS [facility] PRN Reason: Protocol Last Admin: 12/22/16 17:13 Dose: 3 units Lisinopril (Zestril) 10 mg PO DAILY [facility] Last Admin: 12/22/16 08:54 Dose: 10 mg - Labs Labs: 12/22/16 05:36 12/22/16 05:36 - Constitutional Appears: Non-toxic, No Acute Distress, Other (demented ) - Head Exam Head Exam: ATRAUMATIC, NORMAL INSPECTION, NORMOCEPHALIC Additional comments: pale - Eye Exam Eye Exam: EOMI, PERRL Pupil Exam: NORMAL ACCOMODATION - ENT Exam ENT Exam: Mucous Membranes Moist, Normal Exam - Neck Exam Neck Exam: Full ROM, Normal Inspection - Respiratory Exam Respiratory Exam: Clear to Ausculation Bilateral, NORMAL BREATHING PATTERN. absent: Rales, Rhonchi, Wheezes - Cardiovascular Exam Cardiovascular Exam: REGULAR RHYTHM, RRR, +S1, +S2. absent: JVD - GI/Abdominal Exam GI & Abdominal Exam: Soft, Normal Bowel Sounds. absent: Distended, Guarding, Tenderness, Rebound - Rectal Exam Rectal Exam: Deferred - Extremities Exam Extremities Exam: Full ROM, Normal Capillary Refill, Normal Inspection. absent : Pedal Edema - Back Exam Back Exam: NORMAL INSPECTION - Neurological Exam Neurological Exam: Alert, Awake. absent: Oriented x3 Additional comments: demented moves all extremities - Psychiatric Exam Psychiatric exam: Flat Affect Additional comments: demented - Skin Skin Exam: Dry, Pallor, Warm Additional comments: stage I pressure ulcer ,moisture related sacral erythema Assessment and Plan - Assessment and Plan (Free Text) Assessment: 76 y/o lady with hx of Schizophrenia, HTN, DM, Dementia, was brought in because of fever and lethargy.PT has had an episode of vomiting and has had no bowel movement in 2-3 days but she came in because family noted she was not in her usual state of health and had become weaker. 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 Her urine cx growing E.Coli . 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 Pt is allergic to PCN- so was started on Levaquine Continue IVF hydration ID consult with Dr Encarnacion appreciated WBC improved to 13 k discussed with ID . Patient will need at least 3 weeks of IV antibiotics PICC line placed Will start rocephin 2 G IV daily. Monitor for allergy symptoms Will call urology eval for findings of chronic pyelonephritis 2.UTI (urinary tract infection) Acute as above 3. Uncontrolled type 2 diabetes mellitus with hyperglycemia Chronic cont Levemir 15 units sq q 12 accucheck with coverage 4. Schizophrenia Chronic stable poor cognition, totally dependable on for all daily activities Ambulates with assistance Has home health aid 5.HTN (hypertension) Chronic ,controlled on Coreg 6. CAD with history [place] Continue ASA, plavix, Statin, Coreg, lisinopril,norvasc 7. Hyponatremia and azotemia Most likely volume depleted Will give IVF 8.DVT proph on Lovenox SCD
[2016-12-22] MEDS: Sodium Chloride 0.9% 1,000 ML IV SCH (20:45)
[2016-12-22] MEDS: cefTRIAXone 2 GM in Sodium Chloride 0.9% 100 ML IVPB SCH (20:46)
[2016-12-23 05:16] VITALS: RESP 20
[2016-12-23 06:30] LABS: HEMATOCRIT 31.8 % (34.0-47.0); MEAN CELL VOLUME 88.6 fl (81.0-99.0); MEAN CORPUSCULAR HEMOGLOBIN 31.3 pg (27.0-31.0); MEAN CORPUSCULAR HGB CONC 35.3 g/dL (33.0-37.0); RED CELL DISTRIBUTION WIDTH 13.2 % (11.5-14.5); WHITE BLOOD COUNT 10.7 K/uL (4.8-10.8)
[2016-12-23 06:41] LABS: CALCIUM 8.3 mg/dL (8.4-10.2)
[2016-12-23 08:17] VITALS: O2SAT 98
[2016-12-23] MEDS: Insulin Regular 100 units/ml SC SCH ×2 (08:28→13:22)
[2016-12-23] MEDS: Sodium Chloride 0.9% 1,000 ML IV SCH (08:53)
[2016-12-23] MEDS: Enoxaparin 40 mg Syringe SC SCH (08:56)
[2016-12-23] MEDS: Insulin Detemir 100 Units/ml Inj SC SCH (10:30)
--- NOTE | 2016-12-23 11:06 | CP.PCM.DIS ---
Provider - Provider Date of Admission: 12/20/16 03:23 Attending physician: Curt Abreu MD Primary care physician: Dr. Morales Consults: ID consult urology consult Pt eval Time Spent in preparation of Discharge (in minutes): 20 Hospital Course - Lab Results Lab Results: Micro Results 12/20/16 05:13 Throat Group A Strep Throat Culture - Final NO BETA STREP GROUP A ISOLATED. Most Recent Lab Values WBC 10.7 K/uL (4.8-10.8) 12/23/16 05:30 RBC 3.59 Mil/uL (3.80-5.20) L 12/23/16 05:30 Hgb 11.3 g/dL (12.0-16.0) L 12/23/16 05:30 Hct 31.8 % (34.0-47.0) L 12/23/16 05:30 MCV 88.6 fl (81.0-99.0) 12/23/16 05:30 MCH 31.3 pg (27.0-31.0) H 12/23/16 05:30 MCHC 35.3 g/dL (33.0-37.0) 12/23/16 05:30 RDW 13.2 % (11.5-14.5) 12/23/16 05:30 Plt Count 210 K/uL (130-400) 12/23/16 05:30 MPV 8.0 fl (7.2-11.7) 12/22/16 05:36 Neut % (Auto) 73.0 % (50.0-75.0) 12/22/16 05:36 Lymph % (Auto) 16.3 % (20.0-40.0) L 12/22/16 05:36 [place] % (Auto) 9.3 % (0.0-10.0) 12/22/16 05:36 Eos % (Auto) 1.1 % (0.0-4.0) 12/22/16 05:36 Baso % (Auto) 0.3 % (0.0-2.0) 12/22/16 05:36 Neut # 9.6 K/uL (1.8-7.0) H 12/22/16 05:36 Lymph # 2.1 K/uL (1.0-4.3) 12/22/16 05:36 [place] # 1.2 K/uL (0.0-0.8) H 12/22/16 05:36 Eos # 0.1 K/uL (0.0-0.7) 12/22/16 05:36 Baso # 0.0 K/uL (0.0-0.2) 12/22/16 05:36 pCO2 34 mm/Hg (35-45) L 12/20/16 04:05 pO2 70 mm/Hg (80-100) L 12/20/16 04:05 HCO3 24.5 mmol/L (21-28) 12/20/16 04:05 ABG pH 7.44 (7.35-7.45) 12/20/16 04:05 ABG Total CO2 24.1 mmol/L (22-28) 12/20/16 04:05 ABG O2 Saturation 99.7 % (95-98) H 12/20/16 04:05 ABG Base Excess -0.5 mmol/L (-2.0-3.0) 12/20/16 04:05 [place] Test Yes 12/20/16 04:05 ABG Potassium 4.2 mmol/L (3.6-5.2) 12/20/16 04:05 A-a O2 Difference 37.0 mm/Hg 12/20/16 04:05 Sodium 129.0 mmol/L (132-148) L 12/20/16 04:05 Chloride 101.0 mmol/L (98-107) 12/20/16 04:05 Glucose 280 mg/dL (65-105) H 12/20/16 04:05 Lactate 1.4 mmol/L (0.7-2.1) 12/20/16 04:05 FiO2 21.0 % 12/20/16 04:05 Sodium 133 mmol/l (132-148) 12/23/16 05:30 Potassium 4.0 MMOL/L (3.6-5.0) 12/23/16 05:30 Chloride 105 mmol/L (98-107) 12/23/16 05:30 Carbon Dioxide 21 mmol/L (22-30) L 12/23/16 05:30 Anion Gap 11 (10-20) 12/23/16 05:30 BUN 20 mg/dl (7-17) H 12/23/16 05:30 Creatinine 1.3 mg/dL (0.7-1.2) H 12/23/16 05:30 Est GFR ( Amer) 48 12/23/16 05:30 Est GFR (Non-Af Amer) 40 12/23/16 05:30 POC Glucose (mg/dL) 88 mg/dL (65-110) 12/23/16 05:31 Random Glucose 90 mg/dL (65-105) 12/23/16 05:30 Lactic Acid 1.5 MMOL/L (0.7-2.1) 12/20/16 09:30 Calcium 8.3 mg/dL (8.4-10.2) L 12/23/16 05:30 Magnesium 1.8 MG/DL (1.6-2.3) 12/21/16 07:00 Total Bilirubin 0.6 mg/dl (0.2-1.3) 12/21/16 07:00 AST 44 U/L (14-36) H D 12/21/16 07:00 ALT 42 U/L (9-52) 12/21/16 07:00 Alkaline Phosphatase 87 U/L (38-126) 12/21/16 07:00 Troponin I 0.0490 ng/mL (0.00-0.120) 12/19/16 23:00 Total Protein 6.8 G/DL (6.3-8.2) 12/21/16 07:00 Albumin 3.4 g/dL (3.5-5.0) L D 12/21/16 07:00 Globulin 3.4 gm/dL (2.2-3.9) 12/21/16 07:00 Albumin/Globulin Ratio 1.0 (1.0-2.1) 12/21/16 07:00 Lipase 83 U/L (23-300) 12/19/16 23:00 Arterial Blood Potassium 4.2 mmol/L (3.6-5.2) 12/20/16 04:05 Urine Color Niki (YELLOW) 12/20/16 02:15 Urine Clarity Turbid (Clear) 12/20/16 02:15 Urine pH 5.0 (5.0-8.0) 12/20/16 02:15 Ur Specific [place] 1.023 (1.003-1.030) 12/20/16 02:15 Urine Protein 100 mg/dL (NEGATIVE) 12/20/16 02:15 Urine Glucose (UA) >=500 mg/dL (Normal) 12/20/16 02:15 Urine Ketones Negative mg/dL (NEGATIVE) 12/20/16 02:15 Urine Blood Moderate (NEGATIVE) 12/20/16 02:15 Urine Nitrate Positive (NEGATIVE) H 12/20/16 02:15 Urine Bilirubin Negative (NEGATIVE) 12/20/16 02:15 Urine Urobilinogen 0.2-1.0 mg/dL (0.2-1.0) 12/20/16 02:15 Ur Leukocyte Esterase Large Heidy/uL (Negative) 12/20/16 02:15 Urine RBC (Auto) 108 /hpf (0-3) H 12/20/16 02:15 Urine WBC Clumps (Auto) Many /hpf (NONE) H 12/20/16 02:15 Urine Microscopic WBC 2171 /hpf (0-5) H 12/20/16 02:15 Urine Bacteria Many (<OCC) H 12/20/16 02:15 - Hospital Course Hospital Course: 76 y/o lady with hx of Schizophrenia, HTN, DM, Dementia, was brought in because of fever and lethargy.PT has had an episode of vomiting and has had no bowel movement in 2-3 days but she came in because family noted she was not in her usual state of health and had become weaker. 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 Her urine cx growing E.Coli She was admitted for sepsis secondary to UTI. ID was consulted and case was discussed . 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 coli sensitive to rocephin. even though in the chart was documented Penicillin allergy discussed with ID and patient started on Rocephin. 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 patient tolerating rocephin well Will d/c to [facility] 2.UTI (urinary tract infection ) Acute as above 3. Uncontrolled type 2 diabetes mellitus with hyperglycemia Chronic cont Levemir 15 units sq q 12 accucheck with coverage 4. Schizophrenia Chronic stable poor cognition, totally dependable on for all daily activities Ambulates with assistance Has home health aid 5.HTN (hypertension) Chronic ,controlled on Coreg 6. CAD with history [place] Continue ASA, plavix, Statin, Coreg, lisinopril,norvasc 7. Hyponatremia and azotemia Most likely volume depleted Will give IVF 8.DVT proph on Lovenox SCD 9. TED Most likely prerenal Continue IVF Discharge Exam - Head Exam Head Exam: ATRAUMATIC, NORMAL INSPECTION, NORMOCEPHALIC Additional comments: demented chronically ill - Eye Exam Eye Exam: EOMI, Normal appearance, PERRL Pupil Exam: NORMAL ACCOMODATION - ENT Exam ENT Exam: Mucous Membranes Moist, Normal Exam - Neck Exam Neck exam: Full Rom, Normal Inspection - Respiratory Exam Respiratory Exam: Clear to PA & Lateral, NORMAL BREATHING PATTERN. absent: Rhonchi, Wheezes, Respiratory Distress - Cardiovascular Exam Cardiovascular Exam: REGULAR RHYTHM, RRR, +S1, +S2. absent: JVD - GI/Abdominal Exam GI & Abdominal Exam: Normal Bowel Sounds, Soft. absent: Distended, Guarding, Rebound, Tenderness - Rectal Exam Rectal Exam: Deferred - Extremities Exam Extremities exam: normal capillary refill, normal inspection, pedal pulses present - Neurological Exam Neurological exam: Alert Additional comments: demented responds to questions and denies any pain following commands - Psychiatric Exam Psychiatric exam: Flat Affect Additional comments: demented - Skin Skin Exam: Dry, Pallor, Warm Discharge Plan - Discharge Medications Prescriptions: cefTRIAXone [Rocephin] 2 gm IV DAILY #21 vial - Follow Up Plan Condition: STABLE Disposition: TRANSF TO [facility] Patient education suggested?: No Additional Instructions: Discharge to [facility] Referrals: Korey Morales MD [Family Provider] -
[2016-12-23] MEDS: cefTRIAXone 2 GM in Sodium Chloride 0.9% 100 ML IVPB SCH (11:35)
[2016-12-23 12:30] VITALS: BP 113/71; PULSE 90; TEMP 98.5
--- NOTE | 2017-01-01 11:14 | VASCULAR ---
PROCEDURE: Date of procedure: 12/22/2016 Procedure: 1. Placement of a right arm PICC with ultrasound and fluoroscopic guidance, CPT 84883 2. PICC tip confirmation with spot radiograph and is in the superior vena cava Medications: 1 percent lidocaine Total Fluoro time: 4.4 seconds Radiation: 0.49 MGy EBL: 2 cc HISTORY: Infection requiring long-term IV antibiotics TECHNIQUE: Following informed consent and procedure time-out, the patient was placed supine on the interventional table and the right arm prepped and draped in the usual sterile fashion. Ultrasound showed a patent and compressible right basilic vein. After the skin was anesthetized with lidocaine, the basilic vein was accessed with micro micropuncture technique using ultrasound guidance. A guidewire was then advanced under fluoroscopic guidance into the superior vena cava. An image documenting ultrasound guidance for vascular access was permanently saved. The length of the single-lumen 4 Nigerien PICC was trimmed to 35 centimeters and advanced through a peel-away sheath. The PICC was position with tip of PICC confirm a spot radiograph the superior vena cava. The PICC was secured to the patient's skin. The PICC was flushed. A biopatch and sterile dressing was applied. IMPRESSION: Placement of a single-lumen 4 Nigerien PICC trimmed to 35 centimeters via right basilic vein. The tip of the PICC is confirmed with spot radiograph and is in the superior vena cava.
== END 2016-12-23 14:34 | disposition home or self-care (01) | DRG 872 ==
LOC: H.ER 21:51 → H.EROBSV 22:15 → H.ERHOLD 12-20 03:23 → OBSVTOIN 12-20 03:23 → H.TEL 12-20 05:20
PROVIDERS: ADMIT Internal Medicine; ATTEND Internal Medicine
PROC: 02HV33Z Insertion of Infusion Device into Superior Vena Cava, Percutaneous Approach (ICD-10-PCS; principal; 2016-12-22)
DX: A41.9 Sepsis, unspecified organism (principal); N17.9 Acute kidney failure, unspecified; L89.151 Pressure ulcer of sacral region, stage 1; E87.1 Hypo-osmolality and hyponatremia; N11.9 Chronic tubulo-interstitial nephritis, unspecified; E11.65 Type 2 diabetes mellitus with hyperglycemia; F03.90 Unspecified dementia, unspecified severity, without behavioral disturbance, psychotic disturbance, mood disturbance, and anxiety; F20.9 Schizophrenia, unspecified; B96.20 Unspecified Escherichia coli [E. coli] as the cause of diseases classified elsewhere; Z88.0 Allergy status to penicillin; I10 Essential (primary) hypertension; I25.10 Atherosclerotic heart disease of native coronary artery without angina pectoris; Z95.5 Presence of coronary angioplasty implant and graft; I25.2 Old myocardial infarction; K59.00 Constipation, unspecified; I70.1 Atherosclerosis of renal artery; L89.319 Pressure ulcer of right buttock, unspecified stage

== ENCOUNTER 2017-09-07 10:10 | Inpatient (IN) | payer MEDICARE, OTHER ==
[2017-09-07 10:10] VITALS: BMI 26.3
[2017-09-07] MEDS ORDERED: Sodium Chloride 0.9% 1,000 ML IV STA (11:14)
--- NOTE | 2017-09-07 11:18 | ED PDOC ---
HPI: Female Pain Time Seen by Provider: 09/07/17 10:53 Chief Complaint (Nursing): Female Genitourinary Chief Complaint (Provider): Female Genitourinary History Per: Patient, EMS History/Exam Limitations: no limitations Onset/Duration Of Symptoms: Days (x 2) Current Symptoms Are (Timing): Still Present Associated Symptoms: denies: Fever, Vomiting Additional Complaint(s): 77-year-old female who was brought by EMS for blood in urine and suprapubic pain x 2 days. No fever or vomiting. PMD: Korey Morales Past Medical History Reviewed: Historical Data, Nursing Documentation, Vital Signs Vital Signs: Last Vital Signs Temp 97.6 F 09/07/17 10:15 Pulse 101 H 09/07/17 10:15 Resp 21 09/07/17 10:15 BP 194/81 H 09/07/17 10:15 Pulse Ox 96 09/07/17 10:15 - Medical History PMH: Arthritis, Dementia, Diabetes, HTN, Schizophrenia Denies: Atrial Fibrillation, Cardia Arrhythmia, CHF, CVA, Mitral Valve Prolapse, Chronic Kidney Disease - Surgical History Surgical History: Cholecystectomy, Coronary Stent - Family History Family History: States: Unknown Family Hx - Home Medications Home Medications: Ambulatory Orders Medication Instructions Recorded Insulin Detemir [Levemir] 20 units SC BID 06/29/14 Clopidogrel [Plavix] 75 mg PO DAILY #30 tab 06/30/14 Aspirin [Ecotrin] 81 mg PO DAILY 09/07/17 Carvedilol [Coreg] 6.25 mg PO BID 09/07/17 Lisinopril [Zestril] 10 mg PO DAILY 09/07/17 Perphenazine 2 mg PO BID 09/07/17 Rosuvastatin Calcium [Crestor] 10 mg PO DAILY 09/07/17 - Allergies Allergies/Adverse Reactions: Allergies Allergy/AdvReac Type Severity Reaction Status Date / Time Penicillins Allergy RASH Verified 08/11/16 11:36 Review of Systems ROS Statement: Except As Marked, All Systems Reviewed And Found Negative Constitutional: Negative for: Fever Gastrointestinal: Positive for: Other (Suprapubic pain). Negative for: Vomiting Genitourinary Female: Positive for: Hematuria Physical Exam - Reviewed Nursing Documentation Reviewed: Yes Vital Signs Reviewed: Yes - Physical Exam Appears: Positive for: No Acute Distress Cardiovascular/Chest: Positive for: Regular Rate, Rhythm Respiratory: Positive for: Normal Breath Sounds. Negative for: Respiratory Distress Gastrointestinal/Abdominal: Positive for: Mass (Suprapubic mass palpable ). Negative for: Tenderness Extremity: Negative for: Tenderness, Swelling Neurologic/Psych: Positive for: Alert, Oriented (x 3) - Laboratory Results Result Diagrams: 09/07/17 11:40 09/07/17 11:40 - ECG O2 Sat by Pulse Oximetry: 96 Medical Decision Making Medical Decision Making: Time: 11:12 Plan: - CMP - CBC - Sodium Chloride 0.9% 1,000 ml IV 100 mls/hr - Blood Culture - Urine Culture - Urinalysis 11:14 Pelvis Ultrasound (+) Urine RBC [3402; high] (+) Urine Microscopic WBC [203; high] (+) Urine Bacteria Moderate [high] (-) Urine Ketones (-) Urine Bilirubin (-) Leukocyte Esterase WBC Reveals 15.2 K/uL [elevated] Potassium Reveals 5.8 MMOL/L [elevated] 13:18 CT Abdomen and Pelvic w/o PO or IV Cont 13:27 Cipro 400mg/200ml DSW Time: 13:52 Pelvic Ultrasound FINDINGS: UTERUS: Measures 8.6 x 3.8 x 2.7 cm. Use appears mildly anteverted without focal myometrial lesion appreciable. ENDOMETRIUM: Measures 4.3 mm in diameter. Unremarkable. CERVIX: No cervical abnormality identified. RIGHT OVARY: The right ovary is not identified though no suspicious right adnexal mass is appreciated. LEFT OVARY: The left ovary is not identified though no suspicious right adnexal mass is appreciated. FREE FLUID: No significant free fluid noted. OTHER FINDINGS: None. IMPRESSION: Uterus appears grossly nonfocal as well as the endometrium in this trans abdominal pelvic ultrasound exam. The patient preferred not to undergo transvaginal ultrasonography due to pain. No gross adnexal pathology is appreciable bilaterally however neither ovary was identified in this transabdominal exam. Consider possible E ovarian atrophy bilaterally or bilateral oophorectomy in the past . Soft tissue lesion versus irregular debris in the dependent urinary bladder. Follow-up CT of the abdomen and pelvis is advised with and without contrast including delayed images through the pelvis. Urinary bladder neoplasm is in question versus potential hematoma or other soft tissue abnormality. This is an interval finding not seen in prior abdomen/pelvis CT 07/31/2016. Scribe Attestation: Documented by Osvaldo Maynard, acting as a scribe for Gibran Mancini MD Provider Scribe Attestation: All medical record entries made by the Scribe were at my direction and personally dictated by me. I have reviewed the chart and agree that the record accurately reflects my personal performance of the history, physical exam, medical decision making, and the department course for this patient. I have also personally directed, reviewed, and agree with the discharge instructions and disposition. Disposition - Clinical Impression Clinical Impression: UTI (urinary tract infection), Failure of outpatient treatment - Patient ED Disposition Is Patient to be Admitted: Yes - Disposition Disposition Time: 15:24 Condition: FAIR Forms: 1calendar (Dutch) - Pt Status Changed To: Hospital Disposition Of: Inpatient - Admit Certification Admit to Inpatient:: After my assessment, the patient will require hospitalization for at least two midnights. This is because of the severity of symptoms shown, intensity of services needed, and/or the medical risk in this patient being treated as an outpatient. - POA Present On Arrival: None
[2017-09-07 11:50] LABS: BASO # 0.1 K/uL (0.0-0.2); BASO % 0.6 % (0.0-2.0); EOS # 0.3 K/uL (0.0-0.7); EOS % 1.7 % (0.0-4.0); HEMOGLOBIN 13.6 g/dL (12.0-16.0); LYMPH # 2.3 K/uL (1.0-4.3); LYMPH % 14.8 % (20.0-40.0); MEAN CELL VOLUME 90.2 fl (81.0-99.0); MEAN CORPUSCULAR HEMOGLOBIN 30.8 pg (27.0-31.0); MEAN CORPUSCULAR HGB CONC 34.1 g/dL (33.0-37.0); MEAN PLATELET VOLUME 8.1 fl (7.2-11.7); MONO # 1.3 K/uL (0.0-0.8); MONO % 8.6 % (0.0-10.0); NEUT # 11.3 K/uL (1.8-7.0); NEUT % 74.3 % (50.0-75.0); RBC 4.41 Mil/uL (3.80-5.20); RED CELL DISTRIBUTION WIDTH 14.3 % (11.5-14.5); WHITE BLOOD COUNT 15.2 K/uL (4.8-10.8)
[2017-09-07 12:05] LABS: CALCIUM 9.6 mg/dL (8.4-10.2); GFR AFRICAN-AMERICAN > 60; GFR NON-AFRICAN AMERICAN > 60
[2017-09-07 12:12] LABS: ALBUMIN 4.5 g/dL (3.5-5.0); ALT/SGPT 25 U/L (9-52); AST/SGOT 34 U/L (14-36); BLOOD UREA NITROGEN 21 mg/dl (7-17)
[2017-09-07 12:31] LABS: URINE BACTERIA MOD (<OCC); URINE BILIRUBIN NEGATIVE (NEGATIVE); URINE BLOOD SMALL (NEGATIVE); URINE CLARITY CLOUDY (Clear); URINE GLUCOSE (UA) >=500 mg/dL (Normal); URINE LEUKOCYTE ESTERASE NEG Leu/uL (Negative); URINE PROTEIN >=500 mg/dL (NEGATIVE); URINE UROBILINOGEN 0.2-1.0 mg/dL (0.2-1.0)
[2017-09-07 12:33] LABS: URINE COLOR RED (YELLOW)
[2017-09-07] MEDS ORDERED: Ciprofloxacin 400mg/200ml D5W 400 MG/200 ML BAG IVPB STA (13:27)
--- NOTE | 2017-09-07 13:54 | US ---
HISTORY: pelvic mass COMPARISON: Abdomen pelvis CT with contrast 12/20/2016. TECHNIQUE: Transabdominal ultrasonography of the pelvis was performed with transverse and longitudinal images submitted for interpretation. Patient preferred not to undergo transvaginal ultrasonography due to pain. FINDINGS: UTERUS: Measures 8.6 x 3.8 x 2.7 cm. Use appears mildly anteverted without focal myometrial lesion appreciable. ENDOMETRIUM: Measures 4.3 mm in diameter. Unremarkable. CERVIX: No cervical abnormality identified. RIGHT OVARY: The right ovary is not identified though no suspicious right adnexal mass is appreciated. LEFT OVARY: The left ovary is not identified though no suspicious right adnexal mass is appreciated. FREE FLUID: No significant free fluid noted. OTHER FINDINGS: None. IMPRESSION: Uterus appears grossly nonfocal as well as the endometrium in this trans abdominal pelvic ultrasound exam. The patient preferred not to undergo transvaginal ultrasonography due to pain. No gross adnexal pathology is appreciable bilaterally however neither ovary was identified in this transabdominal exam. Consider possible E ovarian atrophy bilaterally or bilateral oophorectomy in the past . Soft tissue lesion versus irregular debris in the dependent urinary bladder. Follow-up CT of the abdomen and pelvis is advised with and without contrast including delayed images through the pelvis. Urinary bladder neoplasm is in question versus potential hematoma or other soft tissue abnormality. This is an interval finding not seen in prior abdomen/pelvis CT 07/31/2016.
[2017-09-07] MEDS ORDERED: Ciprofloxacin 400mg/200ml D5W 400 MG/200 ML BAG IVPB ONE (13:58)
--- NOTE | 2017-09-07 14:23 | CP.PCM.HP ---
History of Present Illness - History of Present Illness History of Present Illness: 76 year old female PMH schizophrenia, HTN, s/p [place] LAD, dyslipidemia, IDDM on Detemir presented to ED by family for acute moderate to severe constant hematuria which she has had several times in the past, associated with incontinence. She is a poor historian, schizophrenic, accompanied by per daughter and . Pt is actively vomiting yellow emesis, small amounts. Patient is fully dependent on care givers, incoherent speech at baseline. Pt for CT abd and pel, currently being treated with cipro IV for UTI, possible pyelo. HD stable, NAD. ROS: unable to be obtained due to schizophrenia PMH schizophrenia, HTN, s/p [place] LAD, dyslipidemia, IDDM on Detemir PSH: Hx OB surgery, unknown FH: hypothyroidism, CAD, DM SH: denies tobacco, ETOH, IVDU Allergies: PCN PMD: Dr. Morales Present on Admission - Present on Admission Any Indicators Present on Admission: No Past Patient History - Infectious Disease Hx of Infectious Diseases: None - Tetanus Immunizations Tetanus Immunization: Unknown - Past Medical History & Family History Past Medical History?: Yes - Past Social History Smoking Status: Former Smoker - CARDIAC Hx Atrial Fibrillation: No Hx Cardia Arrhythmia: No Hx Congestive Heart Failure: No Hx Hypertension: Yes Hx Mitral Valve Prolapse: No - PULMONARY Hx Respiratory Disorders: No - NEUROLOGICAL Hx Dementia: Yes - HEENT Hx HEENT Problems: No - RENAL Hx Chronic Kidney Disease: No - ENDOCRINE/METABOLIC Hx Endocrine Disorders: Yes Hx Diabetes Mellitus Type 1: Yes - HEMATOLOGICAL/ONCOLOGICAL Hx Blood Disorders: No - INTEGUMENTARY Hx Dermatological Problems: No - MUSCULOSKELETAL/RHEUMATOLOGICAL Hx Arthritis: Yes - GASTROINTESTINAL Hx Gastrointestinal Disorders: Yes Hx Nausea: Yes Hx Vomiting: Yes - GENITOURINARY/GYNECOLOGICAL Hx Genitourinary Disorders: No - PSYCHIATRIC Hx Schizophrenia: Yes - SURGICAL HISTORY Hx Cholecystectomy: Yes Hx Coronary Stent: Yes - ANESTHESIA Hx Anesthesia: Yes Hx Anesthesia Reactions: No Hx Malignant Hyperthermia: No Meds Allergies/Adverse Reactions: Allergies Allergy/AdvReac Type Severity Reaction Status Date / Time Penicillins Allergy RASH Verified 08/11/16 11:36 Physical Exam - Constitutional Appears: Non-toxic, No Acute Distress Additional comments: +SCHIZOPHRENIA, incoherent speech at baseline - Head Exam Head Exam: ATRAUMATIC, NORMOCEPHALIC - Eye Exam Eye Exam: EOMI, Normal appearance Pupil Exam: PERRL - ENT Exam ENT Exam: Mucous Membranes Moist, Normal Exam - Neck Exam Neck exam: Positive for: Normal Inspection. Negative for: Tenderness - Respiratory Exam Respiratory Exam: Clear to Auscultation Bilateral, NORMAL BREATHING PATTERN - Cardiovascular Exam Cardiovascular Exam: RRR, +S1, +S2 - GI/Abdominal Exam GI & Abdominal Exam: Normal Bowel Sounds, Soft. absent: Mass - Exam Additional comments: hematuria, incontinence. - Extremities Exam Extremities exam: Negative for: calf tenderness, pedal edema - Back Exam Back exam: NORMAL INSPECTION Additional comments: pt unable to state whether she has cva tenderness. - Neurological Exam Neurological exam: Alert (baseline incoherent speech) - Skin Skin Exam: Dry, Warm Results - Vital Signs Recent Vital Signs: Last Vital Signs Temp 97.6 F 09/07/17 10:15 Pulse 85 09/07/17 13:40 Resp 20 09/07/17 13:40 BP 135/66 09/07/17 13:40 Pulse Ox 96 09/07/17 13:59 - Labs Result Diagrams: 09/07/17 11:40 09/07/17 11:40 Labs: Laboratory Results - last 24 hr 09/07/17 09/07/17 09/07/17 11:40 11:40 11:40 WBC 15.2 H RBC 4.41 Hgb 13.6 D Hct 39.7 MCV 90.2 MCH 30.8 MCHC 34.1 RDW 14.3 Plt Count 234 MPV 8.1 Neut % (Auto) 74.3 Lymph % (Auto) 14.8 L [place] % (Auto) 8.6 Eos % (Auto) 1.7 Baso % (Auto) 0.6 Neut # (Auto) 11.3 H Lymph # (Auto) 2.3 [place] # (Auto) 1.3 H Eos # (Auto) 0.3 Baso # (Auto) 0.1 Sodium 138 Potassium 5.8 H Chloride 99 Carbon Dioxide 21 L Anion Gap 24 H BUN 21 H Creatinine 0.7 Est GFR ( Amer) > 60 Est GFR (Non-Af Amer) > 60 Random Glucose 312 H Calcium 9.6 Total Bilirubin 0.9 AST 34 ALT 25 Alkaline Phosphatase 90 Total Protein 8.9 H Albumin 4.5 Globulin 4.4 H Albumin/Globulin Ratio 1.0 Urine Color Red Urine Clarity Cloudy Urine pH 7.0 Ur Specific [place] 1.012 Urine Protein >=500 Urine Glucose (UA) >=500 Urine Ketones Negative Urine Blood Small Urine Nitrate Negative Urine Bilirubin Negative Urine Urobilinogen 0.2-1.0 Ur Leukocyte Esterase Neg Urine RBC (Auto) 3402 H Urine Microscopic WBC 203 H Urine Bacteria Mod H Assessment & Plan - Assessment and Plan (Free Text) Plan: 76 year old female PMH schizophrenia, HTN, s/p [place] LAD, dyslipidemia, IDDM on Detemir presented to ED by family for acute moderate to severe constant hematuria which she has had several times in the past, associated with incontinence. She is a poor historian, schizophrenic, accompanied by per daughter and . Pt is actively vomiting yellow emesis, small amounts. Patient is fully dependent on care givers, incoherent speech at baseline. Pt for CT abd and pel, currently being treated with cipro IV for UTI, possible pyelo. HD stable, NAD. Hemorrhagic Cystitis continue Cipro Urology consult Dr. Manriquez monitor H/H, currently stable Urine cultures pending HD stable IDDM cont Detemir Accuchecks HTN CAD s/p [place] LAD hold ASA, plavix cont Coreg, Lipitor, Lisinopril Schizophrenia cont Perphenazine BID
--- NOTE | 2017-09-07 15:47 | CT ---
PROCEDURE: CT Abdomen and Pelvis without intravenous contrast HISTORY: r/o kidney stone COMPARISON: Abdomen pelvis CT with contrast 12/20/2016. TECHNIQUE: Helical CT of the abdomen and pelvis was performed without oral or intravenous contrast as per referring physician request. Contrast Dose: None Radiation dose: Total exam DLP = 945.23 mGy-cm. This CT exam was performed using one or more of the following dose reduction techniques: Automated exposure control, adjustment of the mA and/or kV according to patient size, and/or use of iterative reconstruction technique. FINDINGS: Respiratory and body motion degrade the quality this examination significantly. LOWER THORAX: No definitive infiltrate, pleural or pericardial effusion identified. Dense mitral annular calcification identified as well. LIVER: No definitive hepatic lesion appreciable. GALLBLADDER AND BILE DUCTS: Prior cholecystectomy again evident. PANCREAS: The pancreas is partially obscured by motion artifact. No gross mass definitively shown at this time. SPLEEN: Unremarkable. ADRENALS: Unremarkable. No mass. KIDNEYS AND URETERS: There is mild right hydronephrosis however there is no definite hydroureter identified associated with it. This is likely a function of obstructing mass or hematoma at the right urinary bladder base. No left hydronephrosis is seen at this time although left renal pelvis is moderately prominent which is also interval change greater prior and pelvis CT 12/20/2016. No radiodense urolithiasis bilaterally. VASCULATURE: Unremarkable. No aortic aneurysm. BOWEL: Us of bowel is obscured by extensive motion artifact and peristalsis. No definitive bowel obstruction evident. Retained fecal material is prominent at the ascending colon and otherwise mild. The stomach is collapsed. APPENDIX: Not identified. PERITONEUM: No ascites or definite mesenteric reaction. LYMPH NODES: Unremarkable. No enlarged lymph nodes. BLADDER: Urine bladder is distended with prominent hyperdensity at the midline to the right urinary bladder base measuring 4.7 x 8.3 cm suggestive of hematoma given mild increase density. Trace nondependent gas is seen within the lumen of the urinary bladder. Remainder of the urine bladder wall is unremarkable the limited periapical cystic reaction is questioned surrounding the bladder. Consider possible infectious or neoplastic process affecting the urine bladder though an inflammatory etiologies not excluded. Urological consultation is advised. REPRODUCTIVE: A 2.3 cm left adnexal cysts is increased in size compared to 1.6 cm previously. Pelvic ultrasonography advised. BONES: No acute fracture. OTHER FINDINGS: None. IMPRESSION: 1. Mild right hydronephrosis with borderline left hydronephrosis. No definite hydroureter bilaterally however. Hyperdense material suggestive of hematoma is seen at the urinary bladder base and extending toward the right side the lumen 8.3 cm greatest dimension. Underlying mass not excluded. Infectious or inflammatory causes are not excluded. Further, clinical correlation is advised including potential urological consultation. No radiodense urolithiasis identified bilaterally or within the urinary bladder. Potential cystitis as discussed above. 2. Prior cholecystectomy. 3. 2.2 cm left adnexal cyst slightly larger in size compared to 12/20/2016 CT. Follow-up pelvic ultrasonography advised.
[2017-09-07] MEDS: Insulin Detemir 100 Units/ml Inj SC SCH (15:59)
[2017-09-07] MEDS: Ciprofloxacin 400mg/200ml D5W 400 MG/200 ML BAG IVPB SCH (21:57)
--- NOTE | 2017-09-08 01:38 | CON ---
DATE: 09/07/2017 COMPREHENSIVE UROLOGIC HISTORY AND PHYSICAL TIME OF CONSULTATION: Roughly 8:00 p.m. BRIEF HISTORY: The patient is a 77-year-old white female with a history of schizophrenia and unable to give a history at this time, the patient is a poor historian. History obtained mostly from the nursing staff. The patient was brought to the hospital because she fell and also had a change in mental status and was voiding grossly bloody urine at home. She has had prior admissions for treatment of recurrent urinary tract infections. She currently does not complain of any pain at this hour, but she is voiding grossly bloody urine in diapers frequently. A pelvic ultrasound was done for a history of pelvic mass on 09/07/2017 and showed a uterus that appears grossly nonfocal as well as the endometrium. No gross adnexal pathology was appreciated bilaterally. However neither ovary was identified in this transabdominal exam. Soft tissue lesion versus irregular debris in the dependent urinary bladder. Followup CT of the abdomen and pelvic was advised. Urinary bladder neoplasm versus potential hematoma were at the soft tissue abnormality. Abdominal pelvic CT also done on 09/07/2017 showed normal adrenals, no mass, mild right hydronephrosis and there is no definite hydroureter identified associated with it. This likely a function of obstructing mass or hematoma at the right urinary bladder base. No left hydronephrosis is seen at this time, although the left renal pelvis is moderately prominent which is also interval change greater prior and pelvic CT on 12/20/2016, no radiodense urolithiasis bilaterally. The urinary bladder is distended with prominent hyperdensity at the midline to the right urinary bladder base measuring 4.7 x 8.3 cm suggestive of hematoma given mild increase density. Trace nondependent gas is seen within the lumen of the urinary bladder. Remainder of the urinary bladder wall is unremarkable. Limited periapical cystic reaction is question surrounding the bladder. Consider possible infectious or neoplastic process affecting the urinary bladder, inflammatory etiology is not excluded. Prior cholecystectomy and 2.2 cm left adnexal cyst slightly large in size compare to CT of 12/20/2016. LABORATORY DATA: Her laboratory evaluation on 09/07/2017, her urine shows color is red, clarity is cloudy, pH is 7.0, specific gravity is 1.012, protein is greater than 500, and glucose is greater than 500, ketones negative, blood small, nitrite negative, bilirubin negative, urobilinogen 0.2 to 1.0, and leukocyte esterase negative, 3402 rbc's, and 203 wbc's with moderate bacteria per high-power field. CBC shows a WBC count of 15.2, hemoglobin of 13.6, and hematocrit 39.7 with a platelet count of 234,000. Chem profile shows a sodium of 138, potassium of 5.8, chloride of 99, CO2 of 21, BUN and creatinine of 21 and 0.7 respectively with a GFR of greater than 60. Random glucose was 312, calcium of 9.6, AST was 34, ALT was 25, total bilirubin was 0.9, and alkaline phosphatase was 90. MEDICATIONS: The patient was started on IV Cipro. ALLERGIES: THE PATIENT HAS ALLERGY TO PENICILLIN. UROLOGIC DIAGNOSTIC IMPRESSION: 1. Gross hematuria. 2. Mild right hydronephrosis. 3. Possible pyelonephritis, possible cystitis and possible bladder neoplasm. PLAN: The plan is just to continue the patient on IV antibiotics. Check the urine culture which was sent and observe if the grossly bloody urine resolves just with IV antibiotics. If hematuria does not resolve with IV antibiotics, the patient will then need a cystoscopy. Wale Manriquez MD MTDD
[2017-09-08 05:40] LABS: BLOOD UREA NITROGEN 26 mg/dl (7-17); GFR AFRICAN-AMERICAN > 60; GFR NON-AFRICAN AMERICAN > 60
[2017-09-08 05:54] LABS: HEMOGLOBIN 11.6 g/dL (12.0-16.0); MEAN CELL VOLUME 90.2 fl (81.0-99.0); MEAN CORPUSCULAR HEMOGLOBIN 30.6 pg (27.0-31.0); RBC 3.79 Mil/uL (3.80-5.20); RED CELL DISTRIBUTION WIDTH 14.3 % (11.5-14.5); WHITE BLOOD COUNT 19.8 K/uL (4.8-10.8)
--- NOTE | 2017-09-08 07:36 | CARD ---
APPROVED REPORT EKG Measurement Heart [id number] [id number] <Conclusion> Normal sinus rhythm Right superior axis deviation T wave abnormality, consider anterolateral ischemia Prolonged QT Abnormal ECG
[2017-09-08] MEDS: Ciprofloxacin 400mg/200ml D5W 400 MG/200 ML BAG IVPB SCH (08:31)
[2017-09-08] MEDS ORDERED: cefTRIAXone 1,000 MG in PED IV SYRINGE 1 SYR IVPB SCH (09:45)
[2017-09-08] MEDS: Insulin Detemir 100 Units/ml Inj SC SCH ×3 (10:23→16:37)
[2017-09-08] MEDS ORDERED: Trimethobenzamide 200 mg/2 mL Inj IM ONE (11:48)
[2017-09-08] MEDS ORDERED: Trimethobenzamide 200 mg/2 mL Inj IM PRN (11:48)
--- NOTE | 2017-09-08 11:48 | CP.PCM.PN ---
Subjective - Date & Time of Evaluation Date of Evaluation: 09/08/17 Time of Evaluation: 11:43 - Subjective Subjective: pt more calm today increased WBC afebrile patient family at bedside adjusted abx to Cefepime Urology conuslt appreciated, IV Rx for now HD stable NAD Objective - Vital Signs/Intake and Output Vital Signs (last 24 hours): Temp Pulse Resp BP Pulse Ox 97.7 F 90 18 100/63 97 09/08/17 08:37 09/08/17 09:00 09/08/17 08:37 09/08/17 08:37 09/08/17 08:37 - Medications Medications: Current Medications Atorvastatin Calcium (Lipitor) 20 mg PO DAILY [facility] Last Admin: 09/08/17 08:31 Dose: 20 mg Carvedilol (Coreg) 6.25 mg PO BID [facility] Last Admin: 09/08/17 10:24 Dose: Not Given Cefepime HCl 2 gm/ Sodium (Chloride) 100 mls @ 100 mls/hr IVPB Q12 [facility] PRN Reason: Protocol Insulin Detemir (Levemir) 20 units SC BID [facility] Last Admin: 09/08/17 11:35 Dose: 20 units Lisinopril (Zestril) 10 mg PO DAILY [facility] Last Admin: 09/08/17 08:30 Dose: 10 mg Perphenazine (Perphenazine) 2 mg PO BID [facility] Last Admin: 09/08/17 08:31 Dose: 2 mg - Labs Labs: 09/08/17 04:25 09/08/17 04:25 - Constitutional Appears: Non-toxic, No Acute Distress - Head Exam Head Exam: ATRAUMATIC, NORMOCEPHALIC - Eye Exam Eye Exam: EOMI, Normal appearance, PERRL Pupil Exam: NORMAL ACCOMODATION - ENT Exam ENT Exam: Mucous Membranes Moist, Normal Oropharynx - Neck Exam Neck Exam: Full ROM, Normal Inspection - Respiratory Exam Respiratory Exam: Clear to Ausculation Bilateral, NORMAL BREATHING PATTERN - Cardiovascular Exam Cardiovascular Exam: RRR, +S1, +S2 - GI/Abdominal Exam GI & Abdominal Exam: Soft, Normal Bowel Sounds - Extremities Exam Extremities Exam: Normal Capillary Refill. absent: Joint Swelling - Back Exam Back Exam: absent: CVA tenderness (L), CVA tenderness (R) - Neurological Exam Neurological Exam: Alert, Awake - Psychiatric Exam Psychiatric exam: Normal Affect, Normal Mood - Skin Skin Exam: Dry, Warm Assessment and Plan - Assessment and Plan (Free Text) Plan: 76 year old female PMH schizophrenia, HTN, s/p [place] LAD, dyslipidemia, IDDM on Detemir presented to ED by family for acute moderate to severe constant hematuria which she has had several times in the past, associated with incontinence. She is a poor historian, schizophrenic, accompanied by per daughter and . Pt was actively vomiting yellow emesis, small amounts. Patient is fully dependent on care givers, incoherent speech at baseline. +nausea today, ordered Tigan IM, zofran and reglan shortage Hemorrhagic Cystitis bleeding slowing down wbc increased today to 19.8K from about 15K, afebrile - adjusted ABX to cefepime , awaiting cultures Urology consult Dr. Manriquez appreciated, cont IVRx, if hematuria unresolves, then cysto monitor H/H, trending down however Hgb dropped 2 grams. Urine cultures pending HD stable Acute Blood loss anemia Hgb/HCt drop 2 grams yesterday, monitor carefully hematuria slowly improving no ASA or plavix currently holding IDDM cont Detemir Accuchecks HTN CAD s/p [place] LAD hold ASA, plavix cont Coreg, Lipitor, Lisinopril Schizophrenia cont Perphenazine BID
[2017-09-08] MEDS: Cefepime 2 GM in Sodium Chloride 0.9% 100 ML IVPB SCH ×2 (16:38→22:16)
[2017-09-09] MEDS: Insulin Detemir 100 Units/ml Inj SC SCH ×3 (08:55→18:41)
[2017-09-09] MEDS: Cefepime 2 GM in Sodium Chloride 0.9% 100 ML IVPB SCH ×2 (08:57→20:56)
--- NOTE | 2017-09-09 12:44 | CP.PCM.PN ---
Subjective - Date & Time of Evaluation Date of Evaluation: 09/09/17 Time of Evaluation: 10:30 - Subjective Subjective: Patient was seen and examined bedside. Elderly female with poor cognition , lying in bed in NAD . As per family she appears to be better . She is sleeping most of the time , does not follow any commands , does not answer questions. Has poor Po intake. Appears pale , no distress. Hematuria has much improved and slowed down Hemodynamically stable, afebrile Calm Objective - Vital Signs/Intake and Output Vital Signs (last 24 hours): Temp Pulse Resp BP Pulse Ox 97.4 F L 76 16 109/62 98 09/09/17 12:10 09/09/17 12:10 09/09/17 12:10 09/09/17 12:10 09/09/17 12:10 - Medications Medications: Current Medications Atorvastatin Calcium (Lipitor) 20 mg PO DAILY [facility] Last Admin: 09/09/17 08:55 Dose: 20 mg Carvedilol (Coreg) 6.25 mg PO BID [facility] Last Admin: 09/09/17 08:55 Dose: 6.25 mg Cefepime HCl 2 gm/ Sodium (Chloride) 100 mls @ 100 mls/hr IVPB Q12 [facility] PRN Reason: Protocol Last Admin: 09/09/17 08:57 Dose: 100 mls/hr Insulin Detemir (Levemir) 20 units SC BID [facility] Last Admin: 09/09/17 08:55 Dose: 20 units Lisinopril (Zestril) 10 mg PO DAILY [facility] Last Admin: 09/09/17 08:56 Dose: 10 mg Perphenazine (Perphenazine) 2 mg PO BID [facility] Last Admin: 09/09/17 08:56 Dose: 2 mg Trimethobenzamide HCl (Tigan) 200 mg IM Q6 PRN PRN Reason: Nausea/Vomiting - Labs Labs: 09/08/17 04:25 09/08/17 04:25 - Constitutional Appears: Non-toxic, No Acute Distress, Chronically Ill, Other (calm , ) - Head Exam Head Exam: ATRAUMATIC, NORMOCEPHALIC - Eye Exam Eye Exam: PERRL - ENT Exam ENT Exam: Mucous Membranes Dry, Normal Exam - Neck Exam Neck Exam: Full ROM, Normal Inspection - Respiratory Exam Respiratory Exam: Clear to Ausculation Bilateral, NORMAL BREATHING PATTERN. absent: Rales, Rhonchi, Wheezes - Cardiovascular Exam Cardiovascular Exam: REGULAR RHYTHM, RRR, +S1, +S2. absent: JVD - GI/Abdominal Exam GI & Abdominal Exam: Soft, Normal Bowel Sounds. absent: Distended, Guarding, Tenderness, Rebound - Rectal Exam Rectal Exam: Deferred - Extremities Exam Extremities Exam: Normal Inspection. absent: Pedal Edema - Neurological Exam Additional comments: lethargic , sleeping most of the time moves her extremities does not answer any questions, does not follow commands - Skin Skin Exam: Dry, Pallor, Warm Assessment and Plan - Assessment and Plan (Free Text) Assessment: 76 year old female PMH schizophrenia, HTN, s/p [place] LAD, dyslipidemia, IDDM presented to ED by family for acute moderate to severe constant hematuria which she has had several times in the past, associated with incontinence. She is a poor historian, schizophrenic, accompanied by per daughter and . Pt was actively vomiting yellow emesis, small amounts. Patient is fully dependent on care givers, incoherent speech at baseline. She was admitted for hemorrhagic cystitis , started on Iv antibiotics and urology consulted urine culture reported positive for E. Coli pansensitive Patient is hemodynamically stable, afebrile , WBc trending up to 19 K She is lethargic , not following any commands 1.Hemorrhagic Cystitis bleeding slowing down WBC trending up to 19.8k urine cx positive for E. Coli Continue maxipime IV patient appears lethargic most likely because of UTI Urology consult Dr. Manriquez appreciated, cont IVRx, if hematuria does not resolve she may need cystoscopy monitor hgb . 2.Acute Blood loss anemia Hgb 11.6 Monitor closely Hold ASA and plavix 3.IDDM cont Detemir Accuchecks Poor po intake Dietitian consult 4.HTN controlled 5.CAD s/p [place] LAD hold ASA, plavix cont Coreg, Lipitor, Lisinopril 6. Schizophrenia poor cognition, totally dependable on for all daily activities Ambulates with assistance Has home health aid Family does not want any DAO or placement cont Perphenazine BID 7. DVT prophylaxis SCD
[2017-09-10 07:28] LABS: HEMOGLOBIN 10.8 g/dL (12.0-16.0); MEAN CELL VOLUME 90.5 fl (81.0-99.0); MEAN CORPUSCULAR HEMOGLOBIN 30.7 pg (27.0-31.0); MEAN CORPUSCULAR HGB CONC 33.9 g/dL (33.0-37.0); RBC 3.52 Mil/uL (3.80-5.20); RED CELL DISTRIBUTION WIDTH 13.9 % (11.5-14.5); WHITE BLOOD COUNT 14.2 K/uL (4.8-10.8)
[2017-09-10 07:34] LABS: BLOOD UREA NITROGEN 36 mg/dl (7-17); GFR AFRICAN-AMERICAN > 60; GFR NON-AFRICAN AMERICAN > 60
[2017-09-10 08:54] VITALS: O2SAT 96
[2017-09-10] MEDS: Cefepime 2 GM in Sodium Chloride 0.9% 100 ML IVPB SCH (09:04)
[2017-09-10] MEDS: Insulin Detemir 100 Units/ml Inj SC SCH (10:03)
--- NOTE | 2017-09-10 10:11 | CP.PCM.DIS ---
Provider - Provider Date of Admission: 09/07/17 15:08 Attending physician: Amber Palmer DO Primary care physician: Dr. Morales Time Spent in preparation of Discharge (in minutes): 15 Hospital Course - Lab Results Lab Results: Micro Results 09/07/17 11:40 Blood Blood Culture - Preliminary NO GROWTH AFTER 48 HOURS 09/07/17 11:40 Urine Urine Culture - Final Escherichia Coli Most Recent Lab Values WBC 14.2 K/uL (4.8-10.8) H 09/10/17 06:50 RBC 3.52 Mil/uL (3.80-5.20) L 09/10/17 06:50 Hgb 10.8 g/dL (12.0-16.0) L 09/10/17 06:50 Hct 31.8 % (34.0-47.0) L 09/10/17 06:50 MCV 90.5 fl (81.0-99.0) 09/10/17 06:50 MCH 30.7 pg (27.0-31.0) 09/10/17 06:50 MCHC 33.9 g/dL (33.0-37.0) 09/10/17 06:50 RDW 13.9 % (11.5-14.5) 09/10/17 06:50 Plt Count 214 K/uL (130-400) 09/10/17 06:50 MPV 8.1 fl (7.2-11.7) 09/07/17 11:40 Neut % (Auto) 74.3 % (50.0-75.0) 09/07/17 11:40 Lymph % (Auto) 14.8 % (20.0-40.0) L 09/07/17 11:40 Giles % (Auto) 8.6 % (0.0-10.0) 09/07/17 11:40 Eos % (Auto) 1.7 % (0.0-4.0) 09/07/17 11:40 Baso % (Auto) 0.6 % (0.0-2.0) 09/07/17 11:40 Neut # (Auto) 11.3 K/uL (1.8-7.0) H 09/07/17 11:40 Lymph # (Auto) 2.3 K/uL (1.0-4.3) 09/07/17 11:40 Giles # (Auto) 1.3 K/uL (0.0-0.8) H 09/07/17 11:40 Eos # (Auto) 0.3 K/uL (0.0-0.7) 09/07/17 11:40 Baso # (Auto) 0.1 K/uL (0.0-0.2) 09/07/17 11:40 Sodium 139 mmol/l (132-148) 09/10/17 06:50 Potassium 4.2 MMOL/L (3.6-5.0) 09/10/17 06:50 Chloride 104 mmol/L (98-107) 09/10/17 06:50 Carbon Dioxide 21 mmol/L (22-30) L 09/10/17 06:50 Anion Gap 18 (10-20) 09/10/17 06:50 BUN 36 mg/dl (7-17) H 09/10/17 06:50 Creatinine 0.9 mg/dl (0.7-1.2) 09/10/17 06:50 Est GFR ( Amer) > 60 09/10/17 06:50 Est GFR (Non-Af Amer) > 60 09/10/17 06:50 POC Glucose (mg/dL) 78 mg/dL (65-110) 09/10/17 05:25 Random Glucose 84 mg/dL (65-105) 09/10/17 06:50 Calcium 9.0 mg/dL (8.4-10.2) 09/10/17 06:50 Total Bilirubin 0.9 mg/dl (0.2-1.3) 09/07/17 11:40 AST 34 U/L (14-36) 09/07/17 11:40 ALT 25 U/L (9-52) 09/07/17 11:40 Alkaline Phosphatase 90 U/L (38-126) 09/07/17 11:40 Total Protein 8.9 G/DL (6.3-8.2) H 09/07/17 11:40 Albumin 4.5 g/dL (3.5-5.0) 09/07/17 11:40 Globulin 4.4 gm/dL (2.2-3.9) H 09/07/17 11:40 Albumin/Globulin Ratio 1.0 (1.0-2.1) 09/07/17 11:40 Urine Color Red (YELLOW) 09/07/17 11:40 Urine Clarity Cloudy (Clear) 09/07/17 11:40 Urine pH 7.0 (5.0-8.0) 09/07/17 11:40 Ur Specific [place] 1.012 (1.003-1.030) 09/07/17 11:40 Urine Protein >=500 mg/dL (NEGATIVE) 09/07/17 11:40 Urine Glucose (UA) >=500 mg/dL (Normal) 09/07/17 11:40 Urine Ketones Negative mg/dL (NEGATIVE) 09/07/17 11:40 Urine Blood Small (NEGATIVE) 09/07/17 11:40 Urine Nitrate Negative (NEGATIVE) 09/07/17 11:40 Urine Bilirubin Negative (NEGATIVE) 09/07/17 11:40 Urine Urobilinogen 0.2-1.0 mg/dL (0.2-1.0) 09/07/17 11:40 Ur Leukocyte Esterase Neg [place]/uL (Negative) 09/07/17 11:40 Urine RBC (Auto) 3402 /hpf (0-3) H 09/07/17 11:40 Urine Microscopic WBC 203 /hpf (0-5) H 09/07/17 11:40 Urine Bacteria Mod (<OCC) H 09/07/17 11:40 - Hospital Course Hospital Course: 76 year old female PMH schizophrenia, HTN, s/p MS LAD, dyslipidemia, IDDM presented to ED by family for acute moderate to severe constant hematuria which she has had several times in the past, associated with incontinence. She is a poor historian, schizophrenic, accompanied by per daughter and . Pt was actively vomiting yellow emesis, small amounts. Patient is fully dependent on care givers. She was admitted for hemorrhagic cystitis , started on Iv antibiotics and urology consulted urine culture reported positive for E. Coli pansensitive Patient is hemodynamically stable, afebrile , WBc trendingdown from 19 K -- 14 K She appears better today , awake, alert , denies pain , afebrile Discussed with patient and family . Will discharge patient to TCU for continuation of IV antibiotics and PT . As per daughter patient has multiple falls at home especially at night when she tries to get to the bathroom and home supervisor is not home. 1.Hemorrhagic Cystitis bleeding slowed down WBC trended down from 19 K -- 14 K, afebrile Patient awake , alert urine cx positive for E. Coli Continue maxipime IV for 7 days total ( 09/08) Urology consult Dr. Manriquez appreciated, cont IVRx, if hematuria does not resolve she may need cystoscopy monitor hgb . 2.Acute Blood loss anemia Hgb 10 Monitor closely Hold ASA and plavix 3.IDDM cont Detemir Accuchecks Poor po intake Dietitian consult 4.HTN controlled 5.CAD s/p MS LAD hold ASA, plavix cont Coreg, Lipitor, Lisinopril 6. Schizophrenia poor cognition, totally dependable on for all daily activities Ambulates with assistance Has home health aid Family does not want any DAO or placement cont Perphenazine BID 7. DVT prophylaxis SCD Discharge Exam - Head Exam Head Exam: ATRAUMATIC, NORMOCEPHALIC - Eye Exam Eye Exam: EOMI, PERRL Pupil Exam: NORMAL ACCOMODATION - ENT Exam ENT Exam: Normal Exam - Neck Exam Neck exam: Full Rom, Normal Inspection - Respiratory Exam Respiratory Exam: Clear to PA & Lateral, NORMAL BREATHING PATTERN. absent: Rhonchi, Wheezes, Respiratory Distress - Cardiovascular Exam Cardiovascular Exam: REGULAR RHYTHM, RRR, +S1, +S2. absent: JVD - GI/Abdominal Exam GI & Abdominal Exam: Normal Bowel Sounds, Soft. absent: Distended, Guarding, Rebound, Tenderness - Rectal Exam Rectal Exam: Deferred - Extremities Exam Extremities exam: normal inspection, pedal pulses present - Neurological Exam Neurological exam: Alert, CN II-XII Intact Additional comments: oriented to person and place answers questions denies any pain - Skin Skin Exam: Dry, Pallor, Warm Discharge Plan - Discharge Medications Prescriptions: Cefepime IV 2 gm in NS [Maxipime 2gm] 2 gm IVPB Q12 #10 bag - Follow Up Plan Condition: STABLE Disposition: TRANSF TO SNF Patient education suggested?: Yes Referrals: Korey Morales MD [Family Provider] -
[2017-09-10 16:23] VITALS: BP 120/70; PULSE 72; RESP 18; TEMP 98
== END 2017-09-10 15:50 | DRG 690 ==
LOC: H.ER 10:10 → H.ERHOLD 15:08 → H.TEL 17:24 → H.MEDSURG1 09-09 14:38
PROVIDERS: ADMIT Student in an Organized Health Care Education/Training Program; ATTEND Student in an Organized Health Care Education/Training Program
DX: N30.91 Cystitis, unspecified with hematuria (principal); D62 Acute posthemorrhagic anemia; B96.20 Unspecified Escherichia coli [E. coli] as the cause of diseases classified elsewhere; N39.498 Other specified urinary incontinence; F03.90 Unspecified dementia, unspecified severity, without behavioral disturbance, psychotic disturbance, mood disturbance, and anxiety; I25.10 Atherosclerotic heart disease of native coronary artery without angina pectoris; E78.5 Hyperlipidemia, unspecified; I10 Essential (primary) hypertension; E10.9 Type 1 diabetes mellitus without complications; F20.9 Schizophrenia, unspecified; I25.2 Old myocardial infarction; R29.6 Repeated falls; M19.90 Unspecified osteoarthritis, unspecified site; Z95.5 Presence of coronary angioplasty implant and graft; Z87.891 Personal history of nicotine dependence; Z87.440 Personal history of urinary (tract) infections; Z79.4 Long term (current) use of insulin; Z88.0 Allergy status to penicillin

== ENCOUNTER 2017-09-10 14:26 | Inpatient (IN) | payer OTHER ==
[2017-09-10 16:14] VITALS: BMI 25.4
[2017-09-10 18:44] VITALS: RESP 20
[2017-09-10] MEDS: Insulin Detemir 100 Units/ml Inj SC SCH (20:24)
[2017-09-10] MEDS ORDERED: Patient's Own Med (Cefepime Iv 2 Gm In Ns [Maxipime 2gm] 2 GM) IVPB SCH (21:00)
[2017-09-10] MEDS ORDERED: Cefepime 2 GM in Sodium Chloride 0.9% 100 ML IVPB SCH (21:00)
[2017-09-10] MEDS: Insulin Lispro (humaLOG) 100 Units/ml Inj SC SCH (21:02)
[2017-09-11] MEDS: Cefepime 2 GM in Sodium Chloride 0.9% 100 ML IVPB SCH ×2 (04:59→17:12)
[2017-09-11] MEDS: Insulin Lispro (humaLOG) 100 Units/ml Inj SC SCH ×4 (06:34→22:13)
[2017-09-11] MEDS: Insulin Detemir 100 Units/ml Inj SC SCH ×2 (08:30→22:00)
[2017-09-11] MEDS ORDERED: INSULIN DETEMIR 20 UNIT SC SCH (09:00)
[2017-09-11] MEDS ORDERED: Lidocaine Hydrochloride 1% 10 ML ONE (09:27)
--- NOTE | 2017-09-11 12:39 | CP.PCM.CON ---
History of Present Illness - History of Present Illness History of Present Illness: 77 year old female with deconditioning, generalized weakness , arthritis, Ams, UTI gait difficulty Review of Systems - Musculoskeletal Musculoskeletal: Abnormal Gait, Muscle Weakness Past Patient History - Infectious Disease Hx of Infectious Diseases: None - Tetanus Immunizations Tetanus Immunization: Unknown - Past Medical History & Family History Past Medical History?: Yes - Past Social History Smoking Status: Former Smoker - CARDIAC Hx Hypertension: Yes - PULMONARY Hx Respiratory Disorders: No - NEUROLOGICAL Hx Dementia: Yes - HEENT Hx HEENT Problems: No - RENAL Hx Chronic Kidney Disease: No - ENDOCRINE/METABOLIC Hx Diabetes Mellitus Type 1: Yes - HEMATOLOGICAL/ONCOLOGICAL Hx Blood Disorders: No Hx AIDS: No Hx Human Immunodeficiency Virus (HIV): No - INTEGUMENTARY Hx Dermatological Problems: No - MUSCULOSKELETAL/RHEUMATOLOGICAL Hx Falls: Yes - GASTROINTESTINAL Hx Gastrointestinal Disorders: Yes Hx Nausea: Yes Hx Vomiting: Yes - GENITOURINARY/GYNECOLOGICAL Hx Genitourinary Disorders: No - PSYCHIATRIC Hx Substance Use: No - SURGICAL HISTORY Hx Cholecystectomy: Yes Hx Coronary Stent: Yes - ANESTHESIA Hx Anesthesia: Yes Hx Anesthesia Reactions: No Hx Malignant Hyperthermia: No Meds Allergies/Adverse Reactions: Allergies Allergy/AdvReac Type Severity Reaction Status Date / Time Penicillins Allergy RASH Verified 09/10/17 14:49 - Medications Medications: Current Medications Atorvastatin Calcium (Lipitor) 20 mg PO DAILY [facility] Last Admin: 09/11/17 09:35 Dose: 20 mg Carvedilol (Coreg) 6.25 mg PO BID [facility] Last Admin: 09/11/17 09:34 Dose: 6.25 mg Cefepime HCl 2 gm/ Sodium (Chloride) 100 mls @ 100 mls/hr IVPB Q12@0500,1700 [facility] Last Admin: 09/11/17 04:59 Dose: 100 mls/hr Insulin Detemir (Levemir) 20 units SC Q12@0900,2100 [facility] Last Admin: 09/11/17 08:30 Dose: 20 u Insulin Human Lispro (Humalog) 0 units SC ACHS [facility] PRN Reason: Protocol Last Admin: 09/11/17 11:30 Dose: 2 u Lisinopril (Zestril) 10 mg PO DAILY [facility] Last Admin: 09/11/17 09:35 Dose: 10 mg Perphenazine (Perphenazine) 2 mg PO BID [facility] Last Admin: 09/11/17 09:33 Dose: 2 mg Physical Exam - Head Exam Head Exam: ATRAUMATIC, NORMAL INSPECTION, NORMOCEPHALIC - Eye Exam Eye Exam: EOMI, Normal appearance, PERRL Pupil Exam: NORMAL ACCOMODATION, PERRL - ENT Exam ENT Exam: Mucous Membranes Moist, Normal Exam - Neck Exam Neck exam: Positive for: Normal Inspection - Respiratory Exam Respiratory Exam: Clear to Auscultation Bilateral, NORMAL BREATHING PATTERN - Cardiovascular Exam Cardiovascular Exam: REGULAR RHYTHM - GI/Abdominal Exam GI & Abdominal Exam: Normal Bowel Sounds - Rectal Exam Rectal Exam: NORMAL INSPECTION - Exam External exam: NORMAL EXTERNAL EXAM - Extremities Exam Extremities exam: Positive for: normal inspection Additional comments: upper and lower extremities muscle strenght 3/5 - Back Exam Back exam: NORMAL INSPECTION - Neurological Exam Neurological exam: Alert, Reflexes Normal - Psychiatric Exam Psychiatric exam: Normal Affect - Skin Skin Exam: Dry, Intact Results - Vital Signs Recent Vital Signs: Last Vital Signs Temp 97.6 F 09/11/17 08:00 Pulse 68 09/11/17 11:12 Resp 20 09/11/17 08:00 BP 120/60 09/11/17 09:35 Pulse Ox 98 09/11/17 11:12 - Labs Labs: Laboratory Results - last 24 hr 09/10/17 09/10/17 09/11/17 17:57 20:36 06:23 POC Glucose (mg/dL) 254 H 242 H 109 09/11/17 10:39 POC Glucose (mg/dL) 208 H Assessment & Plan (1) Altered mental status Status: Acute (2) Dehydration Status: Acute (3) Diabetes Status: Acute (4) Hyponatremia Status: Acute (5) Leukocytosis Status: Acute (6) Prophylactic measure Status: Acute (7) Pyelonephritis Status: Acute (8) Physical deconditioning Assessment and Plan: plan for physical, occupational therapy for range of motion, strengthening, transfers and gait training Status: Acute
[2017-09-11] MEDS ORDERED: Tuberculin 5 Units/0.1 ml Inj ID ONE (17:14)
--- NOTE | 2017-09-11 18:20 | CP.PCM.HP ---
History of Present Illness - History of Present Illness History of Present Illness: 76 yo female with history of Schizophrenia, HTN, CAD, HLD, DM2 and Chronic UTI brought in because of constant hematuria. She was admitted with a diagnosis of hemorrhagic cystitis. Patient was started empirically with IV Cipro then switched to Cefepime the next day when urine culture grew E Coli resistant to Cipro. The patient's condition improved with WBC trending down and patient afebrile. She was transferred to TCU for continuation of IV antibiotics and therapy because of deconditioning. Present on Admission - Present on Admission Any Indicators Present on Admission: No History of DVT/PE: No History of Uncontrolled Diabetes: No Urinary Catheter: No Decubitus Ulcer Present: No Review of Systems - Review of Systems All systems: reviewed and no additional remarkable complaints except (aside from those mentioned above, 12 point system review were negative by me) Past Patient History - Infectious Disease Hx of Infectious Diseases: None - Tetanus Immunizations Tetanus Immunization: Unknown - Past Medical History & Family History Past Medical History?: Yes - Past Social History Smoking Status: Former Smoker Alcohol: None Drugs: Denies Home Situation {Lives}: With Family - CARDIAC Hx Hypertension: Yes - PULMONARY Hx Respiratory Disorders: No - NEUROLOGICAL Hx Dementia: Yes - HEENT Hx HEENT Problems: No - RENAL Hx Chronic Kidney Disease: No - ENDOCRINE/METABOLIC Hx Diabetes Mellitus Type 1: Yes - HEMATOLOGICAL/ONCOLOGICAL Hx Blood Disorders: No Hx AIDS: No Hx Human Immunodeficiency Virus (HIV): No - INTEGUMENTARY Hx Dermatological Problems: No - MUSCULOSKELETAL/RHEUMATOLOGICAL Hx Falls: Yes - GASTROINTESTINAL Hx Gastrointestinal Disorders: Yes Hx Nausea: Yes Hx Vomiting: Yes - GENITOURINARY/GYNECOLOGICAL Hx Genitourinary Disorders: No - PSYCHIATRIC Hx Substance Use: No - SURGICAL HISTORY Hx Cholecystectomy: Yes Hx Coronary Stent: Yes - ANESTHESIA Hx Anesthesia: Yes Hx Anesthesia Reactions: No Hx Malignant Hyperthermia: No Meds Allergies/Adverse Reactions: Allergies Allergy/AdvReac Type Severity Reaction Status Date / Time Penicillins Allergy RASH Verified 09/10/17 14:49 Physical Exam - Constitutional Appears: No Acute Distress - Head Exam Head Exam: ATRAUMATIC - Eye Exam Eye Exam: absent: Scleral icterus - ENT Exam ENT Exam: Mucous Membranes Moist - Neck Exam Neck exam: Negative for: Meningismus - Respiratory Exam Respiratory Exam: absent: Rales, Rhonchi, Wheezes, Respiratory Distress - Cardiovascular Exam Cardiovascular Exam: REGULAR RHYTHM, +S1, +S2 - GI/Abdominal Exam GI & Abdominal Exam: Soft. absent: Tenderness - Rectal Exam Rectal Exam: Deferred - Neurological Exam Neurological exam: Alert - Psychiatric Exam Psychiatric exam: Flat Affect - Skin Skin Exam: Dry, Intact Results - Vital Signs Recent Vital Signs: Last Vital Signs Temp 97.1 F L 09/11/17 15:44 Pulse 76 09/11/17 17:10 Resp 20 09/11/17 15:44 BP 126/80 09/11/17 17:10 Pulse Ox 99 09/11/17 15:44 - Labs Labs: Laboratory Results - last 24 hr 09/10/17 09/10/17 09/11/17 17:57 20:36 06:23 POC Glucose (mg/dL) 254 H 242 H 109 09/11/17 09/11/17 10:39 15:57 POC Glucose (mg/dL) 208 H 215 H Assessment & Plan - Assessment and Plan (Free Text) Assessment: 76 yo female with history of Schizophrenia, HTN, CAD, HLD, DM2 and Chronic UTI brought in because of constant hematuria. She was admitted with a diagnosis of hemorrhagic cystitis. Patient was started empirically with IV Cipro then switched to Cefepime the next day when urine culture grew E Coli resistant to Cipro. The patient's condition improved with WBC trending down and patient afebrile. She was transferred to TCU for continuation of IV antibiotics and therapy because of deconditioning. 1. Hemorrhagic Cystitis WBC down to 14.2, afebrile urine culture grew E. Coli sensitive to Cefepime Continue IV Cefepime for 7 days total (started on 09/08) appreciate urology consult with Dr. Manriquez if hematuria does not resolve may consider cystoscopy 2. Acute Blood loss anemia Hgb 10.8 Hold ASA and Plavix 3. DM2 continue Levemir 20 units SC q 12hrs Accuchecks ACHS 4. HTN BP stable continue Coreg and Lisinopril 5. CAD s/p [place] LAD hold ASA, Plavix because of bleeding continue Coreg, Lipitor and Lisinopril 6. Schizophrenia poor cognition, totally dependable on for all daily activities Ambulates with assistance Has home health aid Family does not want any DAO or placement cont Perphenazine BID 7. DVT prophylaxis venodyne boots while in bed
[2017-09-12] MEDS: Cefepime 2 GM in Sodium Chloride 0.9% 100 ML IVPB SCH ×2 (04:53→17:13)
[2017-09-12] MEDS: Insulin Lispro (humaLOG) 100 Units/ml Inj SC SCH ×4 (06:34→21:51)
--- NOTE | 2017-09-12 07:56 | CP.PCM.PN ---
Subjective - Date & Time of Evaluation Date of Evaluation: 09/12/17 Time of Evaluation: 07:30 - Subjective Subjective: no acute complaints at present Objective - Vital Signs/Intake and Output Vital Signs (last 24 hours): Temp Pulse Resp BP Pulse Ox 97.0 F L 81 20 125/64 100 09/11/17 19:22 09/11/17 19:22 09/11/17 19:22 09/11/17 19:22 09/11/17 19:22 - Medications Medications: Current Medications Atorvastatin Calcium (Lipitor) 20 mg PO DAILY [facility] Last Admin: 09/11/17 09:35 Dose: 20 mg Carvedilol (Coreg) 6.25 mg PO BID [facility] Last Admin: 09/11/17 17:10 Dose: 6.25 mg Cefepime HCl 2 gm/ Sodium (Chloride) 100 mls @ 100 mls/hr IVPB Q12@0500,1700 [facility] Last Admin: 09/12/17 04:53 Dose: 100 mls/hr Insulin Detemir (Levemir) 20 units SC Q12@0900,2100 [facility] Last Admin: 09/11/17 22:00 Dose: 20 u Insulin Human Lispro (Humalog) 0 units SC ACHS [facility] PRN Reason: Protocol Last Admin: 09/12/17 06:34 Dose: Not Given Lisinopril (Zestril) 10 mg PO DAILY [facility] Last Admin: 09/11/17 09:35 Dose: 10 mg Perphenazine (Perphenazine) 2 mg PO BID [facility] Last Admin: 09/11/17 17:12 Dose: 2 mg - Head Exam Head Exam: ATRAUMATIC, NORMAL INSPECTION, NORMOCEPHALIC - Eye Exam Eye Exam: EOMI, Normal appearance Pupil Exam: NORMAL ACCOMODATION, PERRL - ENT Exam ENT Exam: Mucous Membranes Moist, Normal Exam - Neck Exam Neck Exam: Normal Inspection - Respiratory Exam Respiratory Exam: Clear to Ausculation Bilateral, NORMAL BREATHING PATTERN - Cardiovascular Exam Cardiovascular Exam: REGULAR RHYTHM - GI/Abdominal Exam GI & Abdominal Exam: Soft, Normal Bowel Sounds - Rectal Exam Rectal Exam: NORMAL INSPECTION - Exam External exam: NORMAL EXTERNAL EXAM - Extremities Exam Extremities Exam: Full ROM, Normal Capillary Refill, Normal Inspection - Back Exam Back Exam: NORMAL INSPECTION - Neurological Exam Neurological Exam: Alert Neuro motor strength exam: Left Upper Extremity: 3, Right Upper Extremity: 3, Left Lower Extremity: 3, Right Lower Extremity: 3 - Psychiatric Exam Psychiatric exam: Normal Affect - Skin Skin Exam: Dry, Normal Color Assessment and Plan (1) Altered mental status Status: Acute (2) Dehydration Status: Acute (3) Diabetes Status: Acute (4) Hyponatremia Status: Acute (5) Leukocytosis Status: Acute (6) Prophylactic measure Status: Acute (7) Pyelonephritis Status: Acute (8) Physical deconditioning Assessment & Plan: plan for range of motion, strenghtening transfers and coordination and balance training, plan for Dc to home with Status: Acute
[2017-09-12] MEDS: Insulin Detemir 100 Units/ml Inj SC SCH ×2 (08:31→21:46)
[2017-09-13] MEDS: Cefepime 2 GM in Sodium Chloride 0.9% 100 ML IVPB SCH ×2 (04:26→17:02)
[2017-09-13] MEDS: Insulin Lispro (humaLOG) 100 Units/ml Inj SC SCH ×4 (07:12→22:14)
[2017-09-13] MEDS: Insulin Detemir 100 Units/ml Inj SC SCH ×2 (09:10→22:17)
[2017-09-14] MEDS: Cefepime 2 GM in Sodium Chloride 0.9% 100 ML IVPB SCH ×2 (04:58→16:07)
[2017-09-14] MEDS: Insulin Lispro (humaLOG) 100 Units/ml Inj SC SCH ×4 (07:07→21:46)
[2017-09-14] MEDS: Insulin Detemir 100 Units/ml Inj SC SCH ×2 (08:59→21:48)
[2017-09-15] MEDS: Cefepime 2 GM in Sodium Chloride 0.9% 100 ML IVPB SCH ×2 (04:28→16:50)
[2017-09-15] MEDS: Insulin Lispro (humaLOG) 100 Units/ml Inj SC SCH ×4 (07:03→21:11)
[2017-09-15] MEDS: Insulin Detemir 100 Units/ml Inj SC SCH ×2 (08:48→21:09)
--- NOTE | 2017-09-15 10:51 | CARD ---
APPROVED REPORT EKG Measurement Heart [id number] [id number] <Conclusion> Normal sinus rhythm ST & T wave abnormality, consider lateral ischemia Prolonged QT Abnormal ECG
[2017-09-15] MEDS ORDERED: Magnesium Hydroxide Susp 30 ml UD PO STA (20:28)
[2017-09-16] MEDS ORDERED: Miconazole 100 MG Vaginal Supp VG SCH (02:26)
[2017-09-16 03:36] LABS: SQUAMOUS EPITHIAL 1 /hpf (0-5); URINE BACTERIA RARE (<OCC); URINE BILIRUBIN NEGATIVE (NEGATIVE); URINE BLOOD LARGE (NEGATIVE); URINE CLARITY CLOUDY (Clear); URINE COLOR YELLOW (YELLOW); URINE GLUCOSE (UA) 50 mg/dL (Normal); URINE LEUKOCYTE ESTERASE LARGE Leu/uL (Negative); URINE PROTEIN 100 mg/dL (NEGATIVE); URINE UROBILINOGEN 0.2-1.0 mg/dL (0.2-1.0); WBC CLUMPS FEW /hpf
[2017-09-16] MEDS: Cefepime 2 GM in Sodium Chloride 0.9% 100 ML IVPB SCH ×2 (04:42→05:09)
[2017-09-16] MEDS: Insulin Lispro (humaLOG) 100 Units/ml Inj SC SCH (06:49)
[2017-09-16 08:02] VITALS: BP 125/80; TEMP 96.1
[2017-09-16] MEDS: Insulin Detemir 100 Units/ml Inj SC SCH (08:36)
--- NOTE | 2017-09-16 11:33 | CP.PCM.PN ---
Subjective - Date & Time of Evaluation Date of Evaluation: 09/14/17 Time of Evaluation: 12:00 - Subjective Subjective: no acute complaints at [facility] Objective - Vital Signs/Intake and Output Vital Signs (last 24 hours): Temp Pulse Resp BP Pulse Ox 96.1 F L 85 20 125/80 100 09/16/17 08:01 09/16/17 08:38 09/16/17 08:01 09/16/17 08:38 09/16/17 08:01 - Medications Medications: Current Medications Atorvastatin Calcium (Lipitor) 20 mg PO DAILY@2100 [facility] Last Admin: 09/15/17 21:09 Dose: 20 mg Carvedilol (Coreg) 6.25 mg PO BID [facility] Last Admin: 09/16/17 08:38 Dose: 6.25 mg Insulin Detemir (Levemir) 20 units SC Q12@0900,2100 [facility] Last Admin: 09/16/17 08:36 Dose: 20 u Insulin Human Lispro (Humalog) 0 units SC ACHS [facility] PRN Reason: Protocol Last Admin: 09/16/17 06:49 Dose: 2 u Lisinopril (Zestril) 10 mg PO DAILY [facility] Last Admin: 09/16/17 08:37 Dose: 10 mg Miconazole (Monistat 7 Vag Suppository) 100 mg VG HS [facility] Last Admin: 09/16/17 04:38 Dose: 100 mg Perphenazine (Perphenazine) 2 mg PO BID [facility] Last Admin: 09/16/17 08:38 Dose: 2 mg - Head Exam Head Exam: ATRAUMATIC, NORMAL INSPECTION, NORMOCEPHALIC - Eye Exam Eye Exam: EOMI, Normal appearance, PERRL Pupil Exam: NORMAL ACCOMODATION - ENT Exam ENT Exam: Mucous Membranes Moist, Normal Exam - Neck Exam Neck Exam: Normal Inspection - Respiratory Exam Respiratory Exam: Clear to Ausculation Bilateral, NORMAL BREATHING PATTERN - Cardiovascular Exam Cardiovascular Exam: REGULAR RHYTHM - GI/Abdominal Exam GI & Abdominal Exam: Soft, Normal Bowel Sounds - Rectal Exam Rectal Exam: NORMAL INSPECTION - Exam External exam: NORMAL EXTERNAL EXAM - Extremities Exam Extremities Exam: Full ROM, Normal Capillary Refill - Back Exam Back Exam: NORMAL INSPECTION - Neurological Exam Neurological Exam: Alert, Awake Neuro motor strength exam: Left Upper Extremity: 3, Right Upper Extremity: 3, Left Lower Extremity: 3, Right Lower Extremity: 3 - Psychiatric Exam Psychiatric exam: Normal Affect, Normal Mood - Skin Skin Exam: Dry, Intact Assessment and Plan (1) Altered mental status Status: Acute (2) Dehydration Status: Acute (3) Diabetes Status: Acute (4) Hyponatremia Status: Acute (5) Leukocytosis Status: Acute (6) Prophylactic measure Status: Acute (7) Pyelonephritis Status: Acute (8) Physical deconditioning Assessment & Plan: range of motion, strenghtening transfers and gait training Status: Acute
--- NOTE | 2017-09-16 11:36 | CP.PCM.PN ---
Subjective - Date & Time of Evaluation Date of Evaluation: 09/16/17 Time of Evaluation: 10:00 - Subjective Subjective: no acute neckor back pain Objective - Vital Signs/Intake and Output Vital Signs (last 24 hours): Temp Pulse Resp BP Pulse Ox 96.1 F L 85 20 125/80 100 09/16/17 08:01 09/16/17 08:38 09/16/17 08:01 09/16/17 08:38 09/16/17 08:01 - Medications Medications: Current Medications Atorvastatin Calcium (Lipitor) 20 mg PO DAILY@2100 [facility] Last Admin: 09/15/17 21:09 Dose: 20 mg Carvedilol (Coreg) 6.25 mg PO BID [facility] Last Admin: 09/16/17 08:38 Dose: 6.25 mg Insulin Detemir (Levemir) 20 units SC Q12@0900,2100 [facility] Last Admin: 09/16/17 08:36 Dose: 20 u Insulin Human Lispro (Humalog) 0 units SC ACHS [facility] PRN Reason: Protocol Last Admin: 09/16/17 06:49 Dose: 2 u Lisinopril (Zestril) 10 mg PO DAILY [facility] Last Admin: 09/16/17 08:37 Dose: 10 mg Miconazole (Monistat 7 Vag Suppository) 100 mg VG HS [facility] Last Admin: 09/16/17 04:38 Dose: 100 mg Perphenazine (Perphenazine) 2 mg PO BID [facility] Last Admin: 09/16/17 08:38 Dose: 2 mg - Head Exam Head Exam: ATRAUMATIC, NORMAL INSPECTION, NORMOCEPHALIC - Eye Exam Eye Exam: EOMI, Normal appearance, PERRL Pupil Exam: NORMAL ACCOMODATION - ENT Exam ENT Exam: Mucous Membranes Moist, Normal Exam - Neck Exam Neck Exam: Normal Inspection - Respiratory Exam Respiratory Exam: NORMAL BREATHING PATTERN - Cardiovascular Exam Cardiovascular Exam: REGULAR RHYTHM - GI/Abdominal Exam GI & Abdominal Exam: Soft, Normal Bowel Sounds - Rectal Exam Rectal Exam: NORMAL INSPECTION - Exam Exam: NORMAL INSPECTION External exam: NORMAL EXTERNAL EXAM - Extremities Exam Extremities Exam: Normal Capillary Refill, Normal Inspection - Back Exam Back Exam: NORMAL INSPECTION Assessment and Plan (1) Altered mental status Status: Acute (2) Dehydration Status: Acute (3) Diabetes Status: Acute (4) Hyponatremia Status: Acute (5) Leukocytosis Status: Acute (6) Prophylactic measure Status: Acute (7) Pyelonephritis Status: Acute (8) Physical deconditioning Assessment & Plan: to continue with physical, occupational therapy for improvement with strength balance for Dc planning Status: Acute
--- NOTE | 2017-09-16 12:35 | CP.PCM.DIS ---
Provider - Provider Date of Admission: 09/10/17 16:19 Attending physician: Joan Anne MD Primary care physician: PMD: Dr. Korey Morales Consults: Dr. Phelps- physiatry Dr. Encarnacion- ID Time Spent in preparation of Discharge (in minutes): 25 Hospital Course - Lab Results Lab Results: Most Recent Lab Values POC Glucose (mg/dL) 209 mg/dL (65-110) H 09/16/17 05:58 Troponin I 0.0500 ng/mL (0.00-0.120) 09/15/17 06:30 Urine Color Yellow (YELLOW) 09/16/17 03:26 Urine Clarity Cloudy (Clear) 09/16/17 03:26 Urine pH 6.0 (5.0-8.0) 09/16/17 03:26 Ur Specific [place] 1.012 (1.003-1.030) 09/16/17 03:26 Urine Protein 100 mg/dL (NEGATIVE) 09/16/17 03:26 Urine Glucose (UA) 50 mg/dL (Normal) 09/16/17 03:26 Urine Ketones Negative mg/dL (NEGATIVE) 09/16/17 03:26 Urine Blood Large (NEGATIVE) 09/16/17 03:26 Urine Nitrate Negative (NEGATIVE) 09/16/17 03:26 Urine Bilirubin Negative (NEGATIVE) 09/16/17 03:26 Urine Urobilinogen 0.2-1.0 mg/dL (0.2-1.0) 09/16/17 03:26 Ur Leukocyte Esterase Large Heidy/uL (Negative) 09/16/17 03:26 Urine RBC (Auto) 162 /hpf (0-3) H 09/16/17 03:26 Urine WBC Clumps (Auto) Few /hpf (NONE) H 09/16/17 03:26 Urine Microscopic WBC 461 /hpf (0-5) H 09/16/17 03:26 Ur Squamous Epith Cells 1 /hpf (0-5) 09/16/17 03:26 Urine Bacteria Rare (<OCC) 09/16/17 03:26 - Hospital Course Hospital Course: This is a 76 yo female with history of Schizophrenia, HTN, CAD, HLD, DM2 and Chronic UTI brought in because of constant hematuria. She was admitted with a diagnosis of hemorrhagic cystitis. Patient was started empirically with IV Cipro then switched to Cefepime the next day when urine culture grew E Coli resistant to Cipro. The patient's condition improved with WBC trending down and patient afebrile. She was transferred to TCU for continuation of IV antibiotics and therapy because of deconditioning. During her stay in the transitional care unit, she had an uncomplicated stay. She finished her course of Cefepime and feels much better today. She participated well in occupational and physical therapies. due to vaginal itching overnight she was prescribed Monistat vaginal suppository. Today, she is being discharged to home in stable condition. Accompanied by family members. Assessment and Plan 1. Hemorrhagic Cystitis- improved WBC improved Symptoms improved urine culture grew E. Coli sensitive to Cefepime Recieved IV Cefepime for 7 days total (started on 09/08) appreciate urology consult with Dr. Manriquez Still blood on u/a, may need cystoscopy as outpatient 2. Acute Blood loss anemia Hgb 10.8 Hold ASA and Plavix 3. DM2 continue Levemir 20 units SC q 12hrs Accuchecks ACHS 4. HTN BP stable continue Coreg and Lisinopril 5. CAD s/p SC LAD hold ASA, Plavix because of bleeding continue Coreg, Lipitor and Lisinopril 6. Schizophrenia poor cognition, totally dependable on for all daily activities Ambulates with assistance Has home health aid Family does not want any DAO or placement cont Perphenazine BID 7. DVT prophylaxis venodyne boots while in bed Discharge Exam - Head Exam Head Exam: ATRAUMATIC, NORMAL INSPECTION, NORMOCEPHALIC - Additional Findings Additional findings: Physical exam: Constitutional- cooperative, awake, alert at present but also with periods of confusion Head- NCAT, PERRL Eye- PERRL, EOMI ENT- normal exam, MMM. Neck- normal inspection, supple, no JVD Respiratory- CTAB, no wheezes rales rhonchi Cardiovascular- RRR, +S1, +S2 no MRG GI/Abdominal- normal bowel sounds, soft, no mass, no hsm Skin- warm, dry Extremities Exam- normal capillary refill, normal inspection Neurological Exam- alert, awake, oriented Psych- somnolen, periods of confusion, dx schizophrenia Discharge Plan - Discharge Medications Prescriptions: Miconazole [Monistat 7 Vag Suppository] 100 mg VG HS #7 sup - Follow Up Plan Condition: GOOD Disposition: HOME/ ROUTINE Instructions: Urinary Tract Infection, Adult (DC)
[2017-09-16 15:36] VITALS: PULSE 67; O2SAT 98
== END 2017-09-16 11:00 | disposition home or self-care (01) | DRG 690 ==
LOC: H.TCU 16:19
PROVIDERS: ADMIT Hospitalist; ATTEND Hospitalist
PROC: F07Z9FZ Gait Training/Functional Ambulation Treatment using Assistive, Adaptive, Supportive or Protective Equipment (ICD-10-PCS; principal; 2017-09-10)
PROC: F07L6FZ Therapeutic Exercise Treatment of Musculoskeletal System - Lower Back / Lower Extremity using Assistive, Adaptive, Supportive or Protective Equipment (ICD-10-PCS; 2017-09-10)
DX: N30.91 Cystitis, unspecified with hematuria (principal); D62 Acute posthemorrhagic anemia; E87.1 Hypo-osmolality and hyponatremia; B96.20 Unspecified Escherichia coli [E. coli] as the cause of diseases classified elsewhere; E11.9 Type 2 diabetes mellitus without complications; I10 Essential (primary) hypertension; I25.10 Atherosclerotic heart disease of native coronary artery without angina pectoris; Z95.5 Presence of coronary angioplasty implant and graft; F20.9 Schizophrenia, unspecified; Z88.0 Allergy status to penicillin; Z87.891 Personal history of nicotine dependence; F03.90 Unspecified dementia, unspecified severity, without behavioral disturbance, psychotic disturbance, mood disturbance, and anxiety; I25.2 Old myocardial infarction; E86.0 Dehydration; E78.5 Hyperlipidemia, unspecified; Z16.23 Resistance to quinolones and fluoroquinolones

== ENCOUNTER 2017-10-31 17:59 | Inpatient (IN) | payer MEDICARE, OTHER ==
[2017-10-31 17:59] VITALS: BMI 26.3
[2017-10-31 18:50] LABS: BASO # 0.1 K/uL (0.0-0.2); BASO % 1.1 % (0.0-2.0); EOS # 0.3 K/uL (0.0-0.7); EOS % 3.3 % (0.0-4.0); HEMOGLOBIN 11.5 g/dL (12.0-16.0); LYMPH # 3.2 K/uL (1.0-4.3); LYMPH % 30.5 % (20.0-40.0); MEAN CELL VOLUME 90.1 fl (81.0-99.0); MEAN CORPUSCULAR HEMOGLOBIN 30.8 pg (27.0-31.0); MEAN CORPUSCULAR HGB CONC 34.1 g/dL (33.0-37.0); MONO % 9.2 % (0.0-10.0); NEUT # 5.8 K/uL (1.8-7.0); NEUT % 55.9 % (50.0-75.0); RBC 3.74 Mil/uL (3.80-5.20); RED CELL DISTRIBUTION WIDTH 14.3 % (11.5-14.5); WHITE BLOOD COUNT 10.4 K/uL (4.8-10.8)
--- NOTE | 2017-10-31 18:51 | ED PDOC ---
HPI: Female Pain Time Seen by Provider: 10/31/17 18:10 Chief Complaint (Nursing): Female Genitourinary Chief Complaint (Provider): Female Genitourinary History Per: EMS, Family History/Exam Limitations: clinical condition (Caveat: Patient has cognitive deficits) Onset/Duration Of Symptoms: Other (x 2 weeks) Current Symptoms Are (Timing): Still Present Additional History Per: Prior Records Additional Complaint(s): 76-year-old female, with a past medical history of schizophrenia, hypertension, CAD and diabetes, presenting with bloody urine. 2 weeks ago, patient had urinary frequency and was prescribed levaquin, then was changed to another antibiotic (unknown name). However, symptoms seem to get worse. In the last 24 hours, reports bloody urine. Pt has history of recurrent hematuria and UTI. On last admission, concern for bladder neoplasm vs. hematoma on August. Pt did not follow up with neurologist. History obtained from daughter and due to patient's cognitive deficits. Prior charts reviewed. PMD: Korey Morales Past Medical History Reviewed: Historical Data, Nursing Documentation, Vital Signs Vital Signs: Last Vital Signs Temp 98.3 F 10/31/17 18:02 Pulse 81 10/31/17 18:02 Resp 16 10/31/17 18:02 BP 185/72 H 10/31/17 18:02 Pulse Ox 97 10/31/17 18:02 - Medical History PMH: Arthritis, Dementia, Diabetes, HTN, Schizophrenia Denies: Atrial Fibrillation, Cardia Arrhythmia, CHF, CVA, HIV, Mitral Valve Prolapse, Chronic Kidney Disease - Surgical History Surgical History: Cholecystectomy, Coronary Stent - Family History Family History: States: Unknown Family Hx - Home Medications Home Medications: Ambulatory Orders Medication Instructions Recorded Insulin Detemir [Levemir] 20 units SC BID 06/29/14 Carvedilol [Coreg] 6.25 mg PO BID 09/07/17 Lisinopril [Zestril] 10 mg PO DAILY 09/07/17 Perphenazine 2 mg PO BID 09/07/17 Rosuvastatin Calcium [Crestor] 10 mg PO DAILY 09/07/17 Miconazole [Monistat 7 Vag 100 mg VG HS #7 sup 09/16/17 Suppository] Aspirin [Adult Low Dose Aspirin EC] 81 mg PO DAILY 10/31/17 Clopidogrel [Plavix] 75 mg PO DAILY 10/31/17 Rosuvastatin Calcium [Crestor] 10 mg PO DAILY 10/31/17 - Allergies Allergies/Adverse Reactions: Allergies Allergy/AdvReac Type Severity Reaction Status Date / Time Penicillins Allergy RASH Verified 10/31/17 18:03 Review of Systems ROS Statement: Except As Marked, All Systems Reviewed And Found Negative (As per daughter and due to patient's cognitive deficits) Genitourinary Female: Positive for: Frequency, Hematuria Physical Exam - Reviewed Nursing Documentation Reviewed: Yes Vital Signs Reviewed: Yes - Physical Exam Appears: Positive for: No Acute Distress. Negative for: Well ((+): appears tired) Skin: Positive for: Warm, Dry, Pallor Gastrointestinal/Abdominal: Positive for: Normal Exam, Soft. Negative for: Tenderness, Mass, Guarding, Rebound Back: Negative for: L CVA Tenderness, R CVA Tenderness Neurologic/Psych: Positive for: Alert, Other (Patient's baseline according to daughter). Negative for: Oriented ((+) non-verbal) - Laboratory Results Result Diagrams: 11/01/17 05:20 11/01/17 05:20 - ECG O2 Sat by Pulse Oximetry: 97 (RA) Pulse Ox Interpretation: Normal Medical Decision Making Medical Decision Making: Impression: Hematuria and UTI failed outpatient treatment Differentials include, but not limited to: Bladder Neoplasm, Cystitis, Coagulopathy and Anemia Time: 18:17 Plan: - Type and SCREEN - cmp - Lactic Acid, Plasma - ED Urine Dipstick - CBC (with differentials) - Partial Thromboplastin Time - Prothrombin Time - Blood Culture - Urine Culture - Glucose, Blood, POC - UA CT Abdomen and Pelvis w/o PO or IV Contrast EXAM: CT Abdomen and Pelvis Without Intravenous Contrast CLINICAL HISTORY: 77 years old, female; Signs and symptoms; Other: Hematuria; Prior surgery; Surgery date: 6+ months; Surgery type: Cholecystectomy; Patient HX: HTN dm utis hematuria; Additional info: Hemorrhagic cystitis h/o possible bladder hematoma TECHNIQUE: Axial computed tomography images of the abdomen and pelvis without intravenous contrast. All CT scans at this facility use one or more dose reduction techniques, viz.: automated exposure control; ma/kV adjustment per patient size (including targeted exams where dose is matched to indication; i.e. head); or iterative reconstruction technique. Coronal and sagittal reformatted images were created and reviewed. COMPARISON: CT - ABD PELVIS W/O PO OR IV CONT 2017-09-07 14:36 FINDINGS: Limitations: Lack of intravenous contrast. Motion artifact - mild to moderate. Lung bases: Minimal atelectasis/scarring. Heart: Borderline cardiomegaly. Valvular calcifications. Mediastinum: Small hiatal hernia. ABDOMEN: Liver: Unremarkable. Gallbladder and bile ducts: Cholecystectomy. No significant ductal dilation. Pancreas: Unremarkable. No ductal dilation. Spleen: Few calcifications. No splenomegaly. Adrenals: No mass. Kidneys and ureters: No renal calculi. [id number] pelvocaliectasis of RIGHT kidney, similar to previous examination. Mild pelvocaliectasis of LEFT kidney, similar to previous examination. Mildly dilated RIGHT ureter. Minimally dilated LEFT ureter. Stomach and bowel: No definite mural thickening. No obstruction. PELVIS: Appendix: Normal caliber. No inflammation. Bladder: Distended bladder. No stones.Reproductive: 2.3 x 1.7 x 2.0 cm hypodense lesion within LEFT adnexal region, similar to previous examination. ABDOMEN and PELVIS: Intraperitoneal space: No significant fluid collection. No free air. Bones/joints: Degenerative changes of spine. No acute fracture. Soft tissues: Tiny umbilical hernia containing fat and fluid. Vasculature: Moderate atherosclerotic disease. No aneurysm. Lymph nodes: No pathologically enlarged lymph nodes. IMPRESSION: 1. [id number] pelvocaliectasis and hydroureter, right greater than left, without CT evidence of obstructing calculus. Bladder distention. Given history of hematuria, recommend urological consultation. 2. Left adnexal lesion, grossly stable. Suggest nonemergent ultrasound followup. 3. Incidental/non-acute findings are described above. Thank you for allowing us to participate in the care of your patient. Dictated and Authenticated by: Je Rueda MD 10/31/2017 7:48 PM Eastern Time ([place] & [place]) Labs c/w hemorrhagic cystitis. Given persistent symptoms, needs hospitalization for persistent UTI despite outpatient treatment. Reviewed previous cultures. Meropenem ordered as it is the best in setting of this PCN allergic pt. DW Dr Muir admitting for pt's PMD Dr Morales ~~~~~~~~~~~~~~~~~~~~~~~~~~~~~~~~~~~~~~~~~~~~~~~~~~~~~~~~~~~~~~~ Scribe Attestation: Documented by Osvaldo Maynard, acting as a scribe for Milady Sanabria MD. Provider Scribe Attestation: All medical record entries made by the Scribe were at my direction and personally dictated by me. I have reviewed the chart and agree that the record accurately reflects my personal performance of the history, physical exam, medical decision making, and the department course for this patient. I have also personally directed, reviewed, and agree with the discharge instructions and disposition. Disposition - Clinical Impression Clinical Impression: UTI (urinary tract infection), Dehydration Counseled Patient/Family Regarding: Studies Performed, Diagnosis - Disposition Disposition Time: 19:00 Condition: FAIR - Pt Status Changed To: Hospital Disposition Of: Inpatient - Admit Certification Admit to Inpatient:: After my assessment, the patient will require hospitalization for at least two midnights. This is because of the severity of symptoms shown, intensity of services needed, and/or the medical risk in this patient being treated as an outpatient. - POA Present On Arrival: Falls Or Trauma (risk)
[2017-10-31 19:02] LABS: ALB/GLOB RATIO 1.1 (1.0-2.1); ALT/SGPT 21 U/L (9-52); AST/SGOT 23 U/L (14-36); BLOOD UREA NITROGEN 23 mg/dl (7-17); GFR AFRICAN-AMERICAN > 60; GFR NON-AFRICAN AMERICAN > 60
[2017-10-31 19:29] LABS: SQUAMOUS EPITHIAL 1 /hpf (0-5); URINE BILIRUBIN NEGATIVE (NEGATIVE); URINE BLOOD LARGE (NEGATIVE); URINE CLARITY CLOUDY (Clear); URINE COLOR YELLOW (YELLOW); URINE GLUCOSE (UA) >=500 mg/dL (Normal); URINE LEUKOCYTE ESTERASE SMALL Leu/uL (Negative); URINE PROTEIN 100 mg/dL (NEGATIVE); URINE UROBILINOGEN 0.2-1.0 mg/dL (0.2-1.0)
[2017-10-31 19:31] LABS: PARTIAL THROMBOPLASTIN TIME 30.9 Seconds (25.6-37.1)
--- NOTE | 2017-10-31 19:48 | CT ---
EXAM: CT Abdomen and Pelvis Without Intravenous Contrast CLINICAL HISTORY: 77 years old, female; Signs and symptoms; Other: Hematuria; Prior surgery; Surgery date: 6+ months; Surgery type: Cholecystectomy; Patient HX: HTN dm utis hematuria; Additional info: Hemorrhagic cystitis h/o possible bladder hematoma TECHNIQUE: Axial computed tomography images of the abdomen and pelvis without intravenous contrast. All CT scans at this facility use one or more dose reduction techniques, viz.: automated exposure control; ma/kV adjustment per patient size (including targeted exams where dose is matched to indication; i.e. head); or iterative reconstruction technique. Coronal and sagittal reformatted images were created and reviewed. COMPARISON: CT - ABD PELVIS W/O PO OR IV CONT 2017-09-07 14:36 FINDINGS: Limitations: Lack of intravenous contrast. Motion artifact - mild to moderate. Lung bases: Minimal atelectasis/scarring. Heart: Borderline cardiomegaly. Valvular calcifications. Mediastinum: Small hiatal hernia. ABDOMEN: Liver: Unremarkable. Gallbladder and bile ducts: Cholecystectomy. No significant ductal dilation. Pancreas: Unremarkable. No ductal dilation. Spleen: Few calcifications. No splenomegaly. Adrenals: No mass. Kidneys and ureters: No renal calculi. Jxge-wl-kbcwffhe pelvocaliectasis of RIGHT kidney, similar to previous examination. Mild pelvocaliectasis of LEFT kidney, similar to previous examination. Mildly dilated RIGHT ureter. Minimally dilated LEFT ureter. Stomach and bowel: No definite mural thickening. No obstruction. PELVIS: Appendix: Normal caliber. No inflammation. Bladder: Distended bladder. No stones. Reproductive: 2.3 x 1.7 x 2.0 cm hypodense lesion within LEFT adnexal region, similar to previous examination. ABDOMEN and PELVIS: Intraperitoneal space: No significant fluid collection. No free air. Bones/joints: Degenerative changes of spine. No acute fracture. Soft tissues: Tiny umbilical hernia containing fat and fluid. Vasculature: Moderate atherosclerotic disease. No aneurysm. Lymph nodes: No pathologically enlarged lymph nodes. IMPRESSION: 1. Pwre-hh-kkutuxah pelvocaliectasis and hydroureter, right greater than left, without CT evidence of obstructing calculus. Bladder distention. Given history of hematuria, recommend urological consultation. 2. Left adnexal lesion, grossly stable. Suggest nonemergent ultrasound followup. 3. Incidental/non-acute findings are described above.
[2017-10-31] MEDS ORDERED: Meropenem 1 GM in Sodium Chloride 0.9% 100 ML IVPB ONE (20:30)
--- NOTE | 2017-10-31 21:21 | CP.PCM.HP ---
History of Present Illness - History of Present Illness History of Present Illness: PMD: Korey Morales MD Chief Complaint: Hematuria/Urinary Frequencies The patient was seen and examined in the ED HPI: The hx was obtained from the patient's family and after review of the medical records. She is a 77 years old female with hx of Schizphrenia, Diabetes , Dementia, HTN, IDDM and dementia. She was last admitted on 09/03/17, discharged to rehab on 09/10/17 with dx of UTI and Hemorrhagic Cystitis and recommendation to follow up with her Urologist. She comes with two weeks of urinary frequency and one day of hematuria. No fever, chills, Abdominal pain, Diarrhea. PMH: Arthritis, Dementia, IDDM; HTN, Schizophrenia; [place] ; HLD; Arthritis; PSH: Cholecystectomy, Coronary Stent SH: No illegal drug use; live with her family; Former Smoker; totally dependent on her; No Alcohol FH: Significant for DM; CAD; Hypothyroidism Allergies: PCN Medication: Reviewed Present on Admission - Present on Admission Any Indicators Present on Admission: Yes History of DVT/PE: No History of Uncontrolled Diabetes: Yes Urinary Catheter: No Decubitus Ulcer Present: No Review of Systems - Review of Systems Systems not reviewed;Unavailable: Dementia Review of Systems: review of system limited because of patient having Dementia - Constitutional Constitutional: Fever, Frequent Falls, Headache Additional comments: Left eye with Ptosis and vision impairment - EENT Eyes: Requires Corrective Lenses, Loss of Vision Ears: absent: Decreased Hearing, Tinnitus Past Patient History - Infectious Disease Hx of Infectious Diseases: None - Tetanus Immunizations Tetanus Immunization: Unknown - Past Medical History & Family History Past Medical History?: Yes - Past Social History Smoking Status: Former Smoker Chewing Tobacco Use: No Cigar Use: No Alcohol: None Drugs: Denies Home Situation {Lives}: With Family - CARDIAC Hx Atrial Fibrillation: No Hx Cardia Arrhythmia: No Hx Congestive Heart Failure: No Hx Hypertension: Yes Hx Mitral Valve Prolapse: No - PULMONARY Hx Respiratory Disorders: No - NEUROLOGICAL Hx Dementia: Yes - HEENT Hx HEENT Problems: No - RENAL Hx Chronic Kidney Disease: No - ENDOCRINE/METABOLIC Hx Endocrine Disorders: Yes Hx Diabetes Mellitus Type 1: Yes - HEMATOLOGICAL/ONCOLOGICAL Hx Blood Disorders: No Hx Human Immunodeficiency Virus (HIV): No - INTEGUMENTARY Hx Dermatological Problems: No - MUSCULOSKELETAL/RHEUMATOLOGICAL Hx Arthritis: Yes - GASTROINTESTINAL Hx Gastrointestinal Disorders: Yes Hx Nausea: Yes Hx Vomiting: Yes - GENITOURINARY/GYNECOLOGICAL Hx Genitourinary Disorders: No - PSYCHIATRIC Hx Schizophrenia: Yes - SURGICAL HISTORY Hx Cholecystectomy: Yes Hx Coronary Stent: Yes - ANESTHESIA Hx Anesthesia: Yes Hx Anesthesia Reactions: No Hx Malignant Hyperthermia: No Meds Allergies/Adverse Reactions: Allergies Allergy/AdvReac Type Severity Reaction Status Date / Time Penicillins Allergy RASH Verified 10/31/17 18:03 Physical Exam - Constitutional Appears: No Acute Distress - Head Exam Head Exam: ATRAUMATIC, NORMAL INSPECTION, NORMOCEPHALIC - Eye Exam Additional comments: Left eye with ptosis and blind. - ENT Exam ENT Exam: Normal Exam, Normal External Ear Exam, Normal Oropharynx - Neck Exam Neck exam: Positive for: Full Rom, Normal Inspection. Negative for: Lymphadenopathy, Tenderness - Respiratory Exam Additional comments: Mild rales at the left base and decreased breath sounds at the right lung base - Cardiovascular Exam Cardiovascular Exam: REGULAR RHYTHM, RRR, +S1, +S2. absent: Gallop - GI/Abdominal Exam Additional comments: Full, Soft, ve bowel sounds, Nontender, no guarding Results - Vital Signs Recent Vital Signs: Last Vital Signs Temp 98.3 F 10/31/17 18:02 Pulse 74 10/31/17 21:13 Resp 14 10/31/17 21:13 BP 138/79 10/31/17 21:13 Pulse Ox 96 10/31/17 21:13 - Labs Result Diagrams: 10/31/17 18:35 10/31/17 18:35 Labs: Laboratory Results - last 24 hr 10/31/17 10/31/17 10/31/17 18:35 18:35 18:35 WBC 10.4 RBC 3.74 L Hgb 11.5 L Hct 33.7 L MCV 90.1 MCH 30.8 MCHC 34.1 RDW 14.3 Plt Count 293 MPV 8.0 Neut % (Auto) 55.9 Lymph % (Auto) 30.5 [place] % (Auto) 9.2 Eos % (Auto) 3.3 Baso % (Auto) 1.1 Neut # (Auto) 5.8 Lymph # (Auto) 3.2 [place] # (Auto) 1.0 H Eos # (Auto) 0.3 Baso # (Auto) 0.1 PT INR APTT Sodium 134 Potassium 4.6 Chloride 100 Carbon Dioxide 22 Anion Gap 17 BUN 23 H Creatinine 0.8 Est GFR ( Amer) > 60 Est GFR (Non-Af Amer) > 60 Random Glucose 273 H Lactic Acid 1.2 Calcium 9.0 Total Bilirubin 0.7 AST 23 ALT 21 Alkaline Phosphatase 94 Total Protein 7.6 Albumin 4.0 Globulin 3.6 Albumin/Globulin Ratio 1.1 Urine Color Urine Clarity Urine pH Ur Specific [place] Urine Protein Urine Glucose (UA) Urine Ketones Urine Blood Urine Nitrate Urine Bilirubin Urine Urobilinogen Ur Leukocyte Esterase Urine RBC (Auto) Urine Microscopic WBC Ur Squamous Epith Cells Blood Type Antibody Screen BBK History Checked 10/31/17 10/31/17 10/31/17 18:35 18:35 18:55 WBC RBC Hgb Hct MCV MCH MCHC RDW Plt Count MPV Neut % (Auto) Lymph % (Auto) [place] % (Auto) Eos % (Auto) Baso % (Auto) Neut # (Auto) Lymph # (Auto) [place] # (Auto) Eos # (Auto) Baso # (Auto) PT 11.0 INR 1.0 APTT 30.9 Sodium Potassium Chloride Carbon Dioxide Anion Gap BUN Creatinine Est GFR ( Amer) Est GFR (Non-Af Amer) Random Glucose Lactic Acid Calcium Total Bilirubin AST ALT Alkaline Phosphatase Total Protein Albumin Globulin Albumin/Globulin Ratio Urine Color Yellow Urine Clarity Cloudy Urine pH 7.0 Ur Specific [place] 1.009 Urine Protein 100 Urine Glucose (UA) >=500 Urine Ketones Negative Urine Blood Large Urine Nitrate Negative Urine Bilirubin Negative Urine Urobilinogen 0.2-1.0 Ur Leukocyte Esterase Small Urine RBC (Auto) 1930 H Urine Microscopic WBC 81 H Ur Squamous Epith Cells 1 Blood Type B POSITIVE Antibody Screen Negative BBK History Checked Patient has bt - Imaging and Cardiology CT scan - abdomen Status: Report reviewed by me Additional comment: EXAM: CT Abdomen and Pelvis Without Intravenous Contrast FINDINGS: Limitations: Lack of intravenous contrast. Motion artifact - mild to moderate. Lung bases: Minimal atelectasis/scarring. Heart: Borderline cardiomegaly. Valvular calcifications. Mediastinum: Small hiatal hernia. ABDOMEN: Liver: Unremarkable. Gallbladder and bile ducts: Cholecystectomy. No significant ductal dilation. Pancreas: Unremarkable. No ductal dilation. Spleen: Few calcifications. No splenomegaly. Adrenals: No mass. Kidneys and ureters: No renal calculi. [id number] pelvocaliectasis of RIGHT kidney, similar to previous examination. Mild pelvocaliectasis of LEFT kidney, similar to previous examination. Mildly dilated RIGHT ureter. Minimally dilated LEFT ureter. Stomach and bowel: No definite mural thickening. No obstruction. PELVIS: Appendix: Normal caliber. No inflammation. Bladder: Distended bladder. No stones. ABDOMEN and PELVIS: Intraperitoneal space: No significant fluid collection. No free air. Bones/joints: Degenerative changes of spine. No acute fracture. Soft tissues: Tiny umbilical hernia containing fat and fluid. Vasculature: Moderate atherosclerotic disease. No aneurysm. Lymph nodes: No pathologically enlarged lymph nodes. IMPRESSION: 1. Snzx-[id number] pelvocaliectasis and hydroureter, right greater than left, without CT evidence of obstructing calculus. Bladder distention. Given history of hematuria, recommend urological consultation. 2. Left adnexal lesion, grossly stable. Suggest nonemergent ultrasound followup. 3. Incidental/non-acute findings are described above. Assessment & Plan - Assessment and Plan (Free Text) Assessment: #. Hematuria with Bilateral Pelvocaiectasis #. Bilateral Hydronephrosis #. Dehydration #. IDDM with Hyperglycemia #. Dementia #. Schizophrenia Plan: 77 years old female with hx of Schizphrenia, Diabetes, Dementia, HTN, IDDM and dementia. She was last admitted on 09/03/17, discharged to rehab on 09/10/17 with dx of UTI and Hemorrhagic Cystitis and recommendation to follow up with her Urologist. She comes with two weeks of urinary frequency and one day of hematuria. No fever, chills, Abdominal pain, Diarrhea. #. Hematuria with Bilateral Pelvocaliectasis - Consult Dr Tse Urologist - Consult Dr Dr Encarnacion ID to manage Antibiotics as patient is alergic to [facility] and has been on multiple antibiocs - Follow urine culture and Blood culture - Meropenem Empiric #. Bilateral Hydronephrosis - Urology on consult #. Dehydration - IV Fluyid NS at 75mls/hr - Follow renal labs #. IDDM with Hyperglycemia - Lispro Insulin sliding scale according to Accucheck - HbA1c #. CAD - Hold ASA/Plavix because of hematuria - Follow HB #. Dementia #. Schizophrenia - Pherphenazine #: DVT Prophylaxis: SDC #. Code Status: Full - Date & Time Date: 10/31/17 Time: 21:21
[2017-10-31] MEDS: Sodium Chloride 0.9% 1,000 ML IV SCH (23:50)
[2017-11-01] MEDS: Meropenem 1 GM in Sodium Chloride 0.9% 100 ML IVPB SCH ×3 (01:59→20:47)
[2017-11-01 07:36] LABS: BASO # 0.1 K/uL (0.0-0.2); BASO % 0.6 % (0.0-2.0); EOS # 0.3 K/uL (0.0-0.7); EOS % 3.3 % (0.0-4.0); HEMOGLOBIN 11.5 g/dL (12.0-16.0); LYMPH # 2.8 K/uL (1.0-4.3); LYMPH % 28.8 % (20.0-40.0); MEAN CELL VOLUME 90.2 fl (81.0-99.0); MEAN CORPUSCULAR HEMOGLOBIN 30.7 pg (27.0-31.0); MEAN CORPUSCULAR HGB CONC 34.1 g/dL (33.0-37.0); MEAN PLATELET VOLUME 7.8 fl (7.2-11.7); MONO # 1.1 K/uL (0.0-0.8); MONO % 11.2 % (0.0-10.0); NEUT # 5.4 K/uL (1.8-7.0); NEUT % 56.1 % (50.0-75.0); NRBC % 0.1 % (0.0-0.0); RBC 3.76 Mil/uL (3.80-5.20); RED CELL DISTRIBUTION WIDTH 14.3 % (11.5-14.5); WHITE BLOOD COUNT 9.7 K/uL (4.8-10.8)
[2017-11-01 08:01] LABS: BLOOD UREA NITROGEN 18 mg/dl (7-17); CALCIUM 8.9 mg/dL (8.4-10.2); GFR AFRICAN-AMERICAN > 60; GFR NON-AFRICAN AMERICAN > 60
[2017-11-01] MEDS: Insulin Lispro (humaLOG) 100 Units/ml Inj SC SCH ×4 (08:39→22:08)
--- NOTE | 2017-11-01 10:40 | CP.PCM.PN ---
Subjective - Date & Time of Evaluation Date of Evaluation: 11/01/17 Time of Evaluation: 10:15 - Subjective Subjective: Pt is afebrile leukocytosis improved denies abd pain Pt has dementia however able to follow simple commands + dry cough no SOB no CP Objective - Vital Signs/Intake and Output Vital Signs (last 24 hours): Temp Pulse Resp BP Pulse Ox 97.2 F L 74 19 162/81 H 96 11/01/17 08:07 11/01/17 08:07 11/01/17 08:07 11/01/17 08:07 11/01/17 08:07 - Medications Medications: Current Medications Atorvastatin Calcium (Lipitor) 20 mg PO DAILY [facility] Last Admin: 11/01/17 08:39 Dose: 20 mg Carvedilol (Coreg) 6.25 mg PO BID [facility] Last Admin: 11/01/17 08:39 Dose: 6.25 mg Meropenem 1 gm/ Sodium (Chloride) 100 mls @ 100 mls/hr IVPB Q12 [facility] PRN Reason: Protocol Last Admin: 11/01/17 08:41 Dose: 100 mls/hr Sodium Chloride (Sodium Chloride 0.9%) 1,000 mls @ 75 mls/hr IV .[id number] [facility] Stop: 11/01/17 22:32 Last Admin: 10/31/17 23:50 Dose: 75 mls/hr Insulin Detemir (Levemir) 20 units SC BID [facility] Insulin Human Lispro (Humalog) 0 units SC ACHS [facility] PRN Reason: Protocol Last Admin: 11/01/17 08:39 Dose: Not Given Lisinopril (Zestril) 10 mg PO DAILY [facility] Last Admin: 11/01/17 08:39 Dose: 10 mg Perphenazine (Perphenazine) 2 mg PO BID [facility] Last Admin: 11/01/17 08:39 Dose: 2 mg - Labs Labs: 11/01/17 05:20 11/01/17 05:20 PT 11.0 Seconds (9.8-13.1) 10/31/17 18:35 INR 1.0 (0.9-1.2) 10/31/17 18:35 APTT 30.9 Seconds (25.6-37.1) 10/31/17 18:35 - Constitutional Appears: No Acute Distress, Older Than Stated Age, Chronically Ill - Head Exam Head Exam: NORMOCEPHALIC - Eye Exam Eye Exam: EOMI Pupil Exam: NORMAL ACCOMODATION - ENT Exam ENT Exam: Mucous Membranes Moist, Normal External Ear Exam - Neck Exam Neck Exam: Full ROM. absent: Meningismus - Respiratory Exam Respiratory Exam: Rales (minimal rales bases), NORMAL BREATHING PATTERN. absent : Respiratory Distress - Cardiovascular Exam Cardiovascular Exam: REGULAR RHYTHM, +S1, +S2 - GI/Abdominal Exam GI & Abdominal Exam: Soft, Normal Bowel Sounds. absent: Tenderness - Extremities Exam Extremities Exam: Normal Capillary Refill. absent: Calf Tenderness, Pedal Edema - Back Exam Back Exam: absent: CVA tenderness (L), CVA tenderness (R) - Neurological Exam Neurological Exam: Alert, Awake Additional comments: orienetd to person moves all extremities follows simple commands - Psychiatric Exam Psychiatric exam: Flat Affect - Skin Skin Exam: Dry, Normal Color, Warm Assessment and Plan - Assessment and Plan (Free Text) Assessment: 77 years old female with hx of Schizophrenia, Diabetes, Dementia, HTN, and dementia. She was last admitted on 09/03/17, discharged to rehab on 09/10/17 with dx of UTI and Hemorrhagic Cystitis and recommendation to follow up with her Urologist. She comes with two weeks of urinary frequency and one day of hematuria. No fever, chills, Abdominal pain, Diarrhea. Also complains of cough CT of abd/Pelvis: 1. [id number] pelvocaliectasis and hydroureter, right greater than left , without CT evidence of obstructing calculus. Bladder distention. Given history of hematuria, recommend urological consultation. 2. Left adnexal lesion, grossly stable. Suggest nonemergent ultrasound 1. Hematuria with Bilateral Pelvocaliectasis/Hydronephrosis - Consult Dr Morel Urologist -gentle IVF hydration 2. UTI - Urine c/s , Blood c/s - empirically started on Meropenem ( pt allergic to PCN) -ID consult 3. Dehydration - IV Fluid NS at 75mls/hr 4. Cough - CXR start pt on cough med - pt on Meropenem 5. DM type II , on Insulin with Hyperglycemia - Lispro Insulin sliding scale according to Accucheck - HbA1c -cont Levemir 6. CAD - Hold ASA/Plavix because of hematuria - Monitor Hgb 7. Dementia 8. Schizophrenia - cont Pherphenazine 9. Adnexal Mass seen on CT - ? mass stable since previous CT scan in August , Pelvic sonogram done in August did not show any mass - pt to ff with [facility]IOLOG[facility] as outpt for further work up #: DVT Prophylaxis: SCD #. Code Status: Full, Surrogate Decision maker -
[2017-11-01] MEDS: Insulin Detemir 100 Units/ml Inj SC SCH ×2 (12:08→17:14)
[2017-11-01] MEDS: Sodium Chloride 0.9% 1,000 ML IV SCH (12:15)
--- NOTE | 2017-11-01 13:57 | CP.PCM.CON ---
History of Present Illness - History of Present Illness History of Present Illness: 76-year-old female, with a past medical history of schizophrenia, hypertension, CAD and diabetes, presenting with bloody urine. 2 weeks ago, patient had urinary frequency and was prescribed ofloxacin, but was changed to another antibiotic. However, symptoms seem to get worse. In the last 24 hours, reports bloody urine. Pt has history of recurrent hematuria and UTI. On last admission, concern for bladder neoplasm vs. hematoma on August. Pt did not follow up with urologist. - Medical History PMH: Arthritis, Dementia, Diabetes, HTN, Schizophrenia Denies: Atrial Fibrillation, Cardia Arrhythmia, CHF, CVA, HIV, Mitral Valve Prolapse, Chronic Kidney Disease - Surgical History Surgical History: Cholecystectomy, Coronary Stent - Family History Family History: States: Unknown Family Hx - Home Medications Home Medications: Ambulatory Orders Medication Instructions Recorded Insulin Detemir [Levemir] 20 units SC BID 06/29/14 Carvedilol [Coreg] 6.25 mg PO BID 09/07/17 Lisinopril [Zestril] 10 mg PO DAILY 09/07/17 Perphenazine 2 mg PO BID 09/07/17 Rosuvastatin Calcium [Crestor] 10 mg PO DAILY 09/07/17 Miconazole [Monistat 7 Vag 100 mg VG HS #7 sup 09/16/17 Suppository] - Allergies Allergies/Adverse Reactions: Allergies Allergy/AdvReac Type Severity Reaction Status Date / Time Penicillins Allergy RASH Verified 10/31/17 18:03 Review of Systems - Review of Systems Systems not reviewed;Unavailable: Altered Mental Status All systems: reviewed and no additional remarkable complaints except - Constitutional Constitutional: As Per HPI - EENT Eyes: absent: As Per HPI, Blind Spots, Blurred Vision, Change in Vision, Decreased Night Vision, Diplopia, Discharge, Dry Eye, Exophthalmos, Floaters, Irritation, Itchy Eyes, Loss of Peripheral Vision, Pain, Photophobia, Requires Corrective Lenses, Sees Flashes, Spots in Vision, Tunnel Vision, Other Visual Disturbances, Loss of Vision, Other Ears: absent: As Per HPI, Decreased Hearing, Ear Discharge, Ear Pain, Tinnitus, Abnormal Hearing, Disequilibrium, Dizziness, Other Nose/Mouth/Throat: absent: As Per HPI, Epistaxis, Nasal Congestion, Nasal Discharge, Nasal Obstruction, Nasal Trauma, Nose Pain, Post Nasal Drip, Sinus Pain, Sinus Pressure, Bleeding Gums, Change in Voice, Dental Pain, Dry Mouth, Dysphagia, Halitosis, Hoarsness, Lip Swelling, Mouth Lesions, Mouth Pain, Odynophagia, Sore Throat, Throat Swelling, Tongue Swelling, Facial Pain, Neck Pain, Neck Mass, Other - Breasts Breasts: absent: As Per HPI, Change in Shape, Mass, Pain, Nipple Discharge, Nipple Inversion, Skin Changes, Swelling, Other - Cardiovascular Cardiovascular: absent: As Per HPI, Acrocyanosis, Chest Pain, Chest Pain at Rest , Chest Pain with Activity, Claudication, Diaphoresis, Dyspnea, Dyspnea on Exertion, Edema, Irregular Heart Rhythm, Pain Radiating to Arm/Neck/Jaw, Leg Edema, Leg Ulcers, Lightheadedness, Orthopnea, Palpitations, Paroxysmal Nocturnal Dyspnea, Pedal Edema, Radiating Pain, Rapid Heart Rate, Slow Heart Rate, Syncope, Other - Respiratory Respiratory: absent: As Per HPI, Cough, Dyspnea, Hemoptysis, Dyspnea on Exertion , Wheezing, Snoring, Stridor, Pain on Inspiration, Chest Congestion, Excessive Mucous Production, Change in Mucous Color, Pain with Coughing, Other - Gastrointestinal Gastrointestinal: absent: As Per HPI, Abdominal Pain, Belching, Bloating, Change in Bowel Habits, Change in Stool Character, Coffee Ground Emesis, Constipation, Cramping, Diarrhea, Dyspepsia, Dysphagia, Early Satiety, Excessive Flatus, Fecal Incontinence, Heartburn, Hematemesis, Hematochezia, Loose Stools, Melena, Nausea, Odynophagia, Temesmus, Vomiting, Other - Genitourinary Genitourinary: As Per HPI - Reproductive: Female Reproductive:Female: absent: As Per HPI, Amenorrhea, Amenorrhea/ Control, Currently Menstual, Cycle <21 Days, Cycle >35 Days, Cycle Variable, Menses 1-7 Days, Menses >/= 8 Days, Menses Variable, Cycle > 4 Weeks Between, No Menses for 6 Months, Heavy Menses, Light Menses, Normal Menses, Spotting Between Cycles , S/P Hysterectomy, Menopausal, Post Menopausal, Premenarche, Abnormal Vaginal Bleeding, Dysmenorrhea, Dyspareunia, Genital Lesions, Genital Pruritis, Pelvic Pain, Prolapse Symptoms, Sexual Dysfunction, Vaginal Discharge, Vaginal Dryness , Vaginal Odor, Vaginal Pruritis, Other - Menstruation Menstruation: absent: As Per HPI, Amenorrhea, Amenorrhea/ Control, Currently Menstual, Cycle <21 Days, Cycle >35 Days, Cycle Variable, Menses 1-7 Days, Menses >/= 8 Days, Menses Variable, Cycle > 4 Weeks Between, No Menses for 6 Months, Heavy Menses, Light Menses, Normal Menses, Spotting Between Cycles , S/P Hysterectomy, Menopausal, Post Menopausal, Premenarche, Abnormal Vaginal Bleeding, Dysmenorrhea, Other - Musculoskeletal Musculoskeletal: absent: As Per HPI, Abnormal Gait, Arthralgias, Atrophy, Back Pain, Deformity, Joint Swelling, Limited Range of Motion, Loss of Height, Muscle Cramps, Muscle Weakness, Myalgias, Neck Pain, Numbness, Radiating Pain into Limb, Stiffness, Tingling, Other - Integumentary Integumentary: absent: As Per HPI, Acne, Alopecia, Bleeding Lesions, Change in Hair, Change in Nails, Change in Pigmentation, Changing Lesions, Dry Skin, Erythema, Furuncle, Hirsutism, Lesions, New Lesions, Non-Healing Lesions, Photosensitivity, Pruritus, Rash, Skin Pain, Skin Ulcer, Sores, Striae, Swelling , Unusual Bruising, Wounds, Jaundice, Other - Neurological Neurological: absent: As Per HPI, Abnormal Gait, Abnormal Hearing, Abnormal Movements, Abnormal Speech, Behavioral Changes, Burning Sensations, Confusion, Convulsions, Disequilibrium, Dizziness, Numbness, Focal Weakness, Frequent Falls , Headaches, Lack of Coordination, Loss of Vision, Memory Loss, Paresthesias, Radicular Pain, Restless Legs, Sensory Deficit, Syncope, Tingling, Tremor, Vertigo, Weakness, Other Visual Disturbances, Other - Psychiatric Psychiatric: absent: As Per HPI, Abnormal Sleep Pattern, Anhedonia, Anxiety, Auditory Hallucinations, Behavioral Changes, Change in Appetite, Change in Libido, Confusion, Depression, Difficulty Concentrating, Hallucinations, Homicidal Ideation, Hopelessness, Irritability, Memory Loss, Mood Swings, Panic Attacks, Paranoia, Suicidal Ideation, Visual Hallucinations, Tactile Hallucinations, Other - Endocrine Endocrine: absent: As Per HPI, Change in Body Appearance, Change in Libido, Cold Intolorance, Deepening of Voice, Excessive Sweating, Fatigue, Flushing, Heat Intolorance, Increase in Ring/Shoe/Hat Size, Palpitations, Polydipsia, Polyphagia, Polyuria, Other - Hematologic/Lymphatic Hematologic: absent: As Per HPI, Easy Bleeding, Easy Bruising, Lymphadenopathy, Other Past Patient History - Infectious Disease Hx of Infectious Diseases: None - Tetanus Immunizations Tetanus Immunization: Unknown - Past Medical History & Family History Past Medical History?: Yes - Past Social History Smoking Status: Former Smoker Chewing Tobacco Use: No Cigar Use: No Alcohol: None Drugs: Denies Home Situation {Lives}: With Family - CARDIAC Hx Atrial Fibrillation: No Hx Cardia Arrhythmia: No Hx Congestive Heart Failure: No Hx Hypertension: Yes Hx Mitral Valve Prolapse: No - PULMONARY Hx Respiratory Disorders: No - NEUROLOGICAL Hx Dementia: Yes - HEENT Hx HEENT Problems: No - RENAL Hx Chronic Kidney Disease: No - ENDOCRINE/METABOLIC Hx Endocrine Disorders: Yes Hx Diabetes Mellitus Type 1: Yes - HEMATOLOGICAL/ONCOLOGICAL Hx Blood Disorders: No Hx Human Immunodeficiency Virus (HIV): No - INTEGUMENTARY Hx Dermatological Problems: No - MUSCULOSKELETAL/RHEUMATOLOGICAL Hx Arthritis: Yes - GASTROINTESTINAL Hx Gastrointestinal Disorders: Yes Hx Nausea: Yes Hx Vomiting: Yes - GENITOURINARY/GYNECOLOGICAL Hx Genitourinary Disorders: No - PSYCHIATRIC Hx Schizophrenia: Yes - SURGICAL HISTORY Hx Cholecystectomy: Yes Hx Coronary Stent: Yes - ANESTHESIA Hx Anesthesia: Yes Hx Anesthesia Reactions: No Hx Malignant Hyperthermia: No Meds Allergies/Adverse Reactions: Allergies Allergy/AdvReac Type Severity Reaction Status Date / Time Penicillins Allergy RASH Verified 10/31/17 18:03 - Medications Medications: Current Medications Atorvastatin Calcium (Lipitor) 20 mg PO DAILY [facility] Last Admin: 11/01/17 08:39 Dose: 20 mg Carvedilol (Coreg) 6.25 mg PO BID [facility] Last Admin: 11/01/17 08:39 Dose: 6.25 mg Guaifenesin/Dextromethorphan (Robitussin Dm) 10 ml PO Q4 PRN PRN Reason: Cough Meropenem 1 gm/ Sodium (Chloride) 100 mls @ 100 mls/hr IVPB Q12 [facility] PRN Reason: Protocol Last Admin: 11/01/17 08:41 Dose: 100 mls/hr Sodium Chloride (Sodium Chloride 0.9%) 1,000 mls @ 75 mls/hr IV .[id number] [facility] Stop: 11/01/17 22:32 Last Admin: 11/01/17 12:15 Dose: 75 mls/hr Insulin Detemir (Levemir) 20 units SC BID [facility] Last Admin: 11/01/17 12:08 Dose: 20 units Insulin Human Lispro (Humalog) 0 units SC ACHS [facility] PRN Reason: Protocol Last Admin: 11/01/17 12:12 Dose: 2 units Lisinopril (Zestril) 10 mg PO DAILY [facility] Last Admin: 11/01/17 08:39 Dose: 10 mg Perphenazine (Perphenazine) 2 mg PO BID [facility] Last Admin: 11/01/17 08:39 Dose: 2 mg Physical Exam - Constitutional Appears: Non-toxic, Chronically Ill - Head Exam Head Exam: NORMOCEPHALIC - Eye Exam Eye Exam: PERRL. absent: Scleral icterus - ENT Exam ENT Exam: Mucous Membranes Dry, Normal External Ear Exam - Neck Exam Neck exam: Negative for: Lymphadenopathy - Respiratory Exam Respiratory Exam: Decreased Breath Sounds, Clear to Auscultation Bilateral - Cardiovascular Exam Cardiovascular Exam: REGULAR RHYTHM, +S1, +S2 - GI/Abdominal Exam GI & Abdominal Exam: Diminished Bowel Sounds, Soft. absent: Tenderness - Rectal Exam Rectal Exam: Deferred - Exam Exam: NORMAL INSPECTION - Extremities Exam Extremities exam: Positive for: pedal pulses present. Negative for: calf tenderness, pedal edema, tenderness - Back Exam Back exam: absent: CVA tenderness (L), CVA tenderness (R), paraspinal tenderness - Neurological Exam Neurological exam: Alert, Altered, CN II-XII Intact, Reflexes Normal - Psychiatric Exam Psychiatric exam: Depressed - Skin Skin Exam: Dry Results - Vital Signs Recent Vital Signs: Last Vital Signs Temp 97.2 F L 11/01/17 08:07 Pulse 74 11/01/17 08:07 Resp 19 11/01/17 08:07 BP 162/81 H 11/01/17 08:07 Pulse Ox 96 11/01/17 08:07 - Labs Result Diagrams: 11/01/17 05:20 11/01/17 05:20 Labs: Laboratory Results - last 24 hr 10/31/17 10/31/17 10/31/17 18:35 18:35 18:35 WBC 10.4 RBC 3.74 L Hgb 11.5 L Hct 33.7 L MCV 90.1 MCH 30.8 MCHC 34.1 RDW 14.3 Plt Count 293 MPV 8.0 Neut % (Auto) 55.9 Lymph % (Auto) 30.5 [place] % (Auto) 9.2 Eos % (Auto) 3.3 Baso % (Auto) 1.1 Neut # (Auto) 5.8 Lymph # (Auto) 3.2 [place] # (Auto) 1.0 H Eos # (Auto) 0.3 Baso # (Auto) 0.1 PT INR APTT Sodium 134 Potassium 4.6 Chloride 100 Carbon Dioxide 22 Anion Gap 17 BUN 23 H Creatinine 0.8 Est GFR ( Amer) > 60 Est GFR (Non-Af Amer) > 60 POC Glucose (mg/dL) Random Glucose 273 H Lactic Acid 1.2 Calcium 9.0 Total Bilirubin 0.7 AST 23 ALT 21 Alkaline Phosphatase 94 Total Protein 7.6 Albumin 4.0 Globulin 3.6 Albumin/Globulin Ratio 1.1 Urine Color Urine Clarity Urine pH Ur Specific [place] Urine Protein Urine Glucose (UA) Urine Ketones Urine Blood Urine Nitrate Urine Bilirubin Urine Urobilinogen Ur Leukocyte Esterase Urine RBC (Auto) Urine Microscopic WBC Ur Squamous Epith Cells Blood Type Antibody Screen BBK History Checked 10/31/17 10/31/17 10/31/17 18:35 18:35 18:55 WBC RBC Hgb Hct MCV MCH MCHC RDW Plt Count MPV Neut % (Auto) Lymph % (Auto) [place] % (Auto) Eos % (Auto) Baso % (Auto) Neut # (Auto) Lymph # (Auto) [place] # (Auto) Eos # (Auto) Baso # (Auto) PT 11.0 INR 1.0 APTT 30.9 Sodium Potassium Chloride Carbon Dioxide Anion Gap BUN Creatinine Est GFR ( Amer) Est GFR (Non-Af Amer) POC Glucose (mg/dL) Random Glucose Lactic Acid Calcium Total Bilirubin AST ALT Alkaline Phosphatase Total Protein Albumin Globulin Albumin/Globulin Ratio Urine Color Yellow Urine Clarity Cloudy Urine pH 7.0 Ur Specific [place] 1.009 Urine Protein 100 Urine Glucose (UA) >=500 Urine Ketones Negative Urine Blood Large Urine Nitrate Negative Urine Bilirubin Negative Urine Urobilinogen 0.2-1.0 Ur Leukocyte Esterase Small Urine RBC (Auto) 1930 H Urine Microscopic WBC 81 H Ur Squamous Epith Cells 1 Blood Type B POSITIVE Antibody Screen Negative BBK History Checked Patient has bt 11/01/17 11/01/17 11/01/17 05:20 05:20 10:58 WBC 9.7 RBC 3.76 L Hgb 11.5 L Hct 33.9 L MCV 90.2 MCH 30.7 MCHC 34.1 RDW 14.3 Plt Count 281 MPV 7.8 Neut % (Auto) 56.1 Lymph % (Auto) 28.8 [place] % (Auto) 11.2 H Eos % (Auto) 3.3 Baso % (Auto) 0.6 Neut # (Auto) 5.4 Lymph # (Auto) 2.8 [place] # (Auto) 1.1 H Eos # (Auto) 0.3 Baso # (Auto) 0.1 PT INR APTT Sodium 139 Potassium 4.0 Chloride 102 Carbon Dioxide 25 Anion Gap 16 BUN 18 H Creatinine 0.7 Est GFR ( Amer) > 60 Est GFR (Non-Af Amer) > 60 POC Glucose (mg/dL) 217 H Random Glucose 188 H Lactic Acid Calcium 8.9 Total Bilirubin AST ALT Alkaline Phosphatase Total Protein Albumin Globulin Albumin/Globulin Ratio Urine Color Urine Clarity Urine pH Ur Specific [place] Urine Protein Urine Glucose (UA) Urine Ketones Urine Blood Urine Nitrate Urine Bilirubin Urine Urobilinogen Ur Leukocyte Esterase Urine RBC (Auto) Urine Microscopic WBC Ur Squamous Epith Cells Blood Type Antibody Screen BBK History Checked Assessment & Plan (1) Altered mental status Status: Acute (2) UTI (urinary tract infection) Status: Acute - Assessment and Plan (Free Text) Assessment: CT noted- suggestive of bladder pathology + Hematuria r/o superimosed infection cont IV rx eval for cysto r/o malignancy Plan: On Merrem - ? allergy PCN await cultures cont same rx as pt has tolerated
[2017-11-01] MEDS: guaiFENesin DM 200 mg-20 mg/10 ml UD PO PRN (17:15)
[2017-11-02] MEDS: guaiFENesin DM 200 mg-20 mg/10 ml UD PO PRN ×2 (05:17→10:48)
[2017-11-02] MEDS: Insulin Lispro (humaLOG) 100 Units/ml Inj SC SCH ×4 (08:38→22:51)
[2017-11-02] MEDS: Insulin Detemir 100 Units/ml Inj SC SCH ×2 (09:47→18:44)
--- NOTE | 2017-11-02 10:40 | CP.PCM.PN ---
Subjective - Date & Time of Evaluation Date of Evaluation: 11/02/17 Time of Evaluation: 06:00 Objective - Vital Signs/Intake and Output Vital Signs (last 24 hours): Temp Pulse Resp BP Pulse Ox 97.6 F 85 18 154/77 H 99 11/02/17 08:10 11/02/17 08:10 11/02/17 08:10 11/02/17 08:10 11/02/17 08:10 - Medications Medications: Current Medications Atorvastatin Calcium (Lipitor) 20 mg PO DAILY [facility] Last Admin: 11/01/17 08:39 Dose: 20 mg Carvedilol (Coreg) 6.25 mg PO BID [facility] Last Admin: 11/01/17 17:15 Dose: 6.25 mg Guaifenesin/Dextromethorphan (Robitussin Dm) 10 ml PO Q4 PRN PRN Reason: Cough Last Admin: 11/02/17 05:17 Dose: 10 ml Meropenem 1 gm/ Sodium (Chloride) 100 mls @ 100 mls/hr IVPB Q12 [facility] PRN Reason: Protocol Last Admin: 11/01/17 20:47 Dose: 100 mls/hr Insulin Detemir (Levemir) 20 units SC BID [facility] Last Admin: 11/01/17 17:14 Dose: 20 units Insulin Human Lispro (Humalog) 0 units SC ACHS [facility] PRN Reason: Protocol Last Admin: 11/01/17 22:08 Dose: Not Given Lisinopril (Zestril) 10 mg PO DAILY [facility] Last Admin: 11/01/17 08:39 Dose: 10 mg Perphenazine (Perphenazine) 2 mg PO BID [facility] Last Admin: 11/01/17 17:15 Dose: 2 mg - Labs Labs: 11/01/17 05:20 11/01/17 05:20 PT 11.0 Seconds (9.8-13.1) 10/31/17 18:35 INR 1.0 (0.9-1.2) 10/31/17 18:35 APTT 30.9 Seconds (25.6-37.1) 10/31/17 18:35 Assessment and Plan (1) Altered mental status Status: Acute (2) UTI (urinary tract infection) Status: Acute
[2017-11-02] MEDS: Meropenem 1 GM in Sodium Chloride 0.9% 100 ML IVPB SCH ×2 (10:49→21:11)
--- NOTE | 2017-11-02 14:17 | CP.PCM.PN ---
Subjective - Date & Time of Evaluation Date of Evaluation: 11/02/17 Time of Evaluation: 10:40 - Subjective Subjective: Patient seen and examined. No complaint. Objective - Vital Signs/Intake and Output Vital Signs (last 24 hours): Temp Pulse Resp BP Pulse Ox 97.6 F 85 18 154/77 H 99 11/02/17 08:10 11/02/17 10:58 11/02/17 08:10 11/02/17 10:58 11/02/17 08:10 - Medications Medications: Current Medications Acetaminophen (Tylenol 325mg Tab) 650 mg PO Q6 PRN PRN Reason: Pain, Mild (1-3) Last Admin: 11/02/17 12:34 Dose: 650 mg Atorvastatin Calcium (Lipitor) 20 mg PO DAILY [facility] Last Admin: 11/02/17 10:47 Dose: 20 mg Carvedilol (Coreg) 6.25 mg PO BID [facility] Last Admin: 11/02/17 10:58 Dose: 6.25 mg Guaifenesin/Dextromethorphan (Robitussin Dm) 10 ml PO Q4 PRN PRN Reason: Cough Last Admin: 11/02/17 10:48 Dose: 10 ml Meropenem 1 gm/ Sodium (Chloride) 100 mls @ 100 mls/hr IVPB Q12 [facility] PRN Reason: Protocol Last Admin: 11/02/17 10:49 Dose: 100 mls/hr Insulin Detemir (Levemir) 20 units SC BID [facility] Last Admin: 11/02/17 09:47 Dose: 20 units Insulin Human Lispro (Humalog) 0 units SC ACHS [facility] PRN Reason: Protocol Last Admin: 11/02/17 12:38 Dose: 2 units Lisinopril (Zestril) 10 mg PO DAILY [facility] Last Admin: 11/02/17 10:47 Dose: 10 mg Perphenazine (Perphenazine) 2 mg PO BID [facility] Last Admin: 11/02/17 10:46 Dose: 2 mg - Labs Labs: 11/01/17 05:20 11/01/17 05:20 PT 11.0 Seconds (9.8-13.1) 10/31/17 18:35 INR 1.0 (0.9-1.2) 10/31/17 18:35 APTT 30.9 Seconds (25.6-37.1) 10/31/17 18:35 - Constitutional Appears: No Acute Distress - Head Exam Head Exam: ATRAUMATIC - Eye Exam Eye Exam: absent: Scleral icterus - ENT Exam ENT Exam: Mucous Membranes Moist - Neck Exam Neck Exam: Meningismus - Respiratory Exam Respiratory Exam: absent: Rales, Rhonchi, Wheezes, Respiratory Distress - Cardiovascular Exam Cardiovascular Exam: REGULAR RHYTHM, +S1, +S2 - GI/Abdominal Exam GI & Abdominal Exam: Soft. absent: Tenderness - Rectal Exam Rectal Exam: Deferred - Neurological Exam Neurological Exam: Alert - Psychiatric Exam Psychiatric exam: Normal Affect - Skin Skin Exam: Dry, Intact Assessment and Plan - Assessment and Plan (Free Text) Assessment: 77 yo female with history of Schizophrenia, DM2, Dementia and HTN brought back because of urinary frequency and hematuria of 2 weeks duration. Patient was admitted 2 months ago with UTI and Hemorrhagic Cystitis. She was discharged after 3 days to TCU where spent another 5 days for continuation of IV antibiotics. She was advised follow up with a urologist but never did. 1. Hematuria with Bilateral Pelvocaliectasis/Hydronephrosis CT of abd/pelvis: [id number] pelvocaliectasis and hydroureter, right greater than left, without evidence of obstructing calculus. Bladder distended. spoke with Dr Morel, urologist; he suggested to get post void bladder sonogram to find out cause of bladder obstruction before he would see her 2. UTI on Meropenem ID consult with Dr Encarnacion 3. DM type II Lispro Insulin sliding scale according to Accucheck HbA1c: 8.3 continue Levemir plus Lispro on sliding scale 4. CAD Hold ASA/Plavix because of hematuria continue statin, BB and Lisinopril 5. Schizophrenia continue Pherphenazine 6. Adnexal Mass seen on CT mass stable since previous CT scan in August, Pelvic sonogram done in August did not show any mass follow up with [facility] as outpatient
[2017-11-02 23:28] VITALS: RESP 18
[2017-11-03] MEDS: Insulin Lispro (humaLOG) 100 Units/ml Inj SC SCH ×2 (07:00→12:37)
[2017-11-03 08:03] VITALS: PULSE 82; TEMP 98.1; O2SAT 95
--- NOTE | 2017-11-03 09:01 | US ---
PROCEDURE: Ultrasound of the Bladder HISTORY: distneded bladder with bilateral hydronephrosis COMPARISON: None available. TECHNIQUE: Sonographic evaluation of the bladder was performed. FINDINGS: Unremarkable without wall thickening or intraluminal debris. No calculus or gross mass lesion. No free fluid in pelvis. Prevoid Volume: 164.9 cc. Patient could not void on command, but did void a little bit. Post void residual: 70 cc. IMPRESSION: Patient unable to void on command, but did void some. No significant postvoid residual.
[2017-11-03] MEDS: Insulin Detemir 100 Units/ml Inj SC SCH (10:06)
[2017-11-03] MEDS: Meropenem 1 GM in Sodium Chloride 0.9% 100 ML IVPB SCH (10:06)
[2017-11-03] MEDS: guaiFENesin DM 200 mg-20 mg/10 ml UD PO PRN (10:08)
--- NOTE | 2017-11-03 10:42 | CP.PCM.PN ---
Subjective - Date & Time of Evaluation Date of Evaluation: 11/03/17 Time of Evaluation: 09:00 - Subjective Subjective: discussed on rounds possible d/c on po rx Objective - Vital Signs/Intake and Output Vital Signs (last 24 hours): Temp Pulse Resp BP Pulse Ox 98.1 F 82 18 146/84 95 11/03/17 08:03 11/03/17 10:05 11/03/17 08:03 11/03/17 10:05 11/03/17 08:03 - Medications Medications: Current Medications Acetaminophen (Tylenol 325mg Tab) 650 mg PO Q6 PRN PRN Reason: Pain, Mild (1-3) Last Admin: 11/02/17 12:34 Dose: 650 mg Atorvastatin Calcium (Lipitor) 20 mg PO DAILY [facility] Last Admin: 11/03/17 10:08 Dose: 20 mg Carvedilol (Coreg) 6.25 mg PO BID [facility] Last Admin: 11/03/17 10:05 Dose: 6.25 mg Guaifenesin/Dextromethorphan (Robitussin Dm) 10 ml PO Q4 PRN PRN Reason: Cough Last Admin: 11/03/17 10:08 Dose: 10 ml Meropenem 1 gm/ Sodium (Chloride) 100 mls @ 100 mls/hr IVPB Q12 ASHLEY PRN Reason: Protocol Last Admin: 11/03/17 10:06 Dose: 100 mls/hr Insulin Detemir (Levemir) 20 units SC BID [facility] Last Admin: 11/03/17 10:06 Dose: 20 units Insulin Human Lispro (Humalog) 0 units SC ACHS [facility] PRN Reason: Protocol Last Admin: 11/03/17 07:00 Dose: Not Given Lisinopril (Zestril) 10 mg PO DAILY [facility] Last Admin: 11/02/17 10:47 Dose: 10 mg Perphenazine (Perphenazine) 2 mg PO BID [facility] Last Admin: 11/03/17 10:05 Dose: 2 mg - Labs Labs: 11/01/17 05:20 11/01/17 05:20 PT 11.0 Seconds (9.8-13.1) 10/31/17 18:35 INR 1.0 (0.9-1.2) 10/31/17 18:35 APTT 30.9 Seconds (25.6-37.1) 10/31/17 18:35 - Constitutional Appears: Non-toxic, Chronically Ill - Head Exam Head Exam: NORMOCEPHALIC - Eye Exam Eye Exam: PERRL - ENT Exam ENT Exam: Mucous Membranes Dry - Neck Exam Neck Exam: absent: Lymphadenopathy - Respiratory Exam Respiratory Exam: Decreased Breath Sounds - Cardiovascular Exam Cardiovascular Exam: REGULAR RHYTHM - GI/Abdominal Exam GI & Abdominal Exam: Distended - Rectal Exam Rectal Exam: Deferred - Exam Exam: NORMAL INSPECTION - Extremities Exam Extremities Exam: absent: Pedal Edema - Back Exam Back Exam: absent: CVA tenderness (L), CVA tenderness (R) Assessment and Plan (1) Altered mental status Status: Acute (2) UTI (urinary tract infection) Status: Acute - Assessment and Plan (Free Text) Assessment: needs gU eval
[2017-11-03 11:28] LABS: BASO # 0.1 K/uL (0.0-0.2); BASO % 1.3 % (0.0-2.0); EOS # 0.3 K/uL (0.0-0.7); EOS % 2.9 % (0.0-4.0); HEMOGLOBIN 12.2 g/dL (12.0-16.0); LYMPH # 2.7 K/uL (1.0-4.3); LYMPH % 25.1 % (20.0-40.0); MEAN CELL VOLUME 89.4 fl (81.0-99.0); MEAN CORPUSCULAR HGB CONC 35.8 g/dL (33.0-37.0); MEAN PLATELET VOLUME 8.6 fl (7.2-11.7); MONO % 9.7 % (0.0-10.0); NEUT # 6.6 K/uL (1.8-7.0); NRBC % 0.3 % (0.0-0.0); RBC 3.81 Mil/uL (3.80-5.20); RED CELL DISTRIBUTION WIDTH 14.5 % (11.5-14.5); WHITE BLOOD COUNT 10.9 K/uL (4.8-10.8)
[2017-11-03 12:05] LABS: BLOOD UREA NITROGEN 30 mg/dl (7-17); CALCIUM 8.7 mg/dL (8.4-10.2); GFR AFRICAN-AMERICAN > 60; GFR NON-AFRICAN AMERICAN > 60
[2017-11-03 13:43] VITALS: BP 138/82
--- NOTE | 2017-11-03 15:48 | CP.PCM.DIS ---
Provider - Provider Date of Admission: 11/01/17 12:02 Attending physician: Nate Muir Consults: Dr Encarnacion Time Spent in preparation of Discharge (in minutes): 25 Diagnosis - Discharge Diagnosis (1) UTI (urinary tract infection) Status: Acute Comment: continue Macrobid 100mg PO BID. follow up with urologist because of bilateral hydronephrosis. post void bladder sonogram: no significant residual; bladder did not have wall thickening or intraluminal debris. No calculus or mass lesion seen (2) DM2 (diabetes mellitus, type 2) Status: Acute Comment: BS controlled. continue Levemir 20 units SC BID (3) CAD (coronary artery disease) Status: Acute Comment: continue statin, BB and Lisinopril (4) Schizophrenia Status: Chronic Comment: continue Pherphenazine Hospital Course - Lab Results Lab Results: Micro Results 10/31/17 08:40 Blood-Venous Blood Culture - Preliminary NO GROWTH AFTER 48 HOURS 10/31/17 18:35 Blood-Venous Blood Culture - Preliminary NO GROWTH AFTER 48 HOURS 10/31/17 18:55 Urine,Clean Catch Urine Culture - Final <10,000 CFU/ML. MULTIPLE SPECIES. PROBABLE CONTAMINATION. Most Recent Lab Values WBC 10.9 K/uL (4.8-10.8) H 11/03/17 11:18 RBC 3.81 Mil/uL (3.80-5.20) 11/03/17 11:18 Hgb 12.2 g/dL (12.0-16.0) 11/03/17 11:18 Hct 34.0 % (34.0-47.0) 11/03/17 11:18 MCV 89.4 fl (81.0-99.0) 11/03/17 11:18 MCH 32.0 pg (27.0-31.0) H 11/03/17 11:18 MCHC 35.8 g/dL (33.0-37.0) 11/03/17 11:18 RDW 14.5 % (11.5-14.5) 11/03/17 11:18 Plt Count 300 K/uL (130-400) 11/03/17 11:18 MPV 8.6 fl (7.2-11.7) 11/03/17 11:18 Neut % (Auto) 61.0 % (50.0-75.0) 11/03/17 11:18 Lymph % (Auto) 25.1 % (20.0-40.0) 11/03/17 11:18 [place] % (Auto) 9.7 % (0.0-10.0) 11/03/17 11:18 Eos % (Auto) 2.9 % (0.0-4.0) 11/03/17 11:18 Baso % (Auto) 1.3 % (0.0-2.0) 11/03/17 11:18 Neut # (Auto) 6.6 K/uL (1.8-7.0) 11/03/17 11:18 Lymph # (Auto) 2.7 K/uL (1.0-4.3) 11/03/17 11:18 [place] # (Auto) 1.0 K/uL (0.0-0.8) H 11/03/17 11:18 Eos # (Auto) 0.3 K/uL (0.0-0.7) 11/03/17 11:18 Baso # (Auto) 0.1 K/uL (0.0-0.2) 11/03/17 11:18 PT 11.0 Seconds (9.8-13.1) 10/31/17 18:35 INR 1.0 (0.9-1.2) 10/31/17 18:35 APTT 30.9 Seconds (25.6-37.1) 10/31/17 18:35 Sodium 134 mmol/l (132-148) 11/03/17 11:18 Potassium 5.5 MMOL/L (3.6-5.0) H 11/03/17 11:18 Chloride 99 mmol/L (98-107) 11/03/17 11:18 Carbon Dioxide 23 mmol/L (22-30) 11/03/17 11:18 Anion Gap 18 (10-20) 11/03/17 11:18 BUN 30 mg/dl (7-17) H 11/03/17 11:18 Creatinine 0.8 mg/dl (0.7-1.2) 11/03/17 11:18 Est GFR ( Amer) > 60 11/03/17 11:18 Est GFR (Non-Af Amer) > 60 11/03/17 11:18 POC Glucose (mg/dL) 301 mg/dL (65-110) H 11/03/17 10:47 Random Glucose 259 mg/dL (65-105) H 11/03/17 11:18 Hemoglobin A1c 8.3 % (4.2-6.5) H 11/01/17 05:20 Lactic Acid 1.2 MMOL/L (0.7-2.1) 10/31/17 18:35 Calcium 8.7 mg/dL (8.4-10.2) 11/03/17 11:18 Total Bilirubin 0.7 mg/dl (0.2-1.3) 10/31/17 18:35 AST 23 U/L (14-36) 10/31/17 18:35 ALT 21 U/L (9-52) 10/31/17 18:35 Alkaline Phosphatase 94 U/L (38-126) 10/31/17 18:35 Total Protein 7.6 G/DL (6.3-8.2) 10/31/17 18:35 Albumin 4.0 g/dL (3.5-5.0) 10/31/17 18:35 Globulin 3.6 gm/dL (2.2-3.9) 10/31/17 18:35 Albumin/Globulin Ratio 1.1 (1.0-2.1) 10/31/17 18:35 Urine Color Yellow (YELLOW) 10/31/17 18:55 Urine Clarity Cloudy (Clear) 10/31/17 18:55 Urine pH 7.0 (5.0-8.0) 10/31/17 18:55 Ur Specific [place] 1.009 (1.003-1.030) 10/31/17 18:55 Urine Protein 100 mg/dL (NEGATIVE) 10/31/17 18:55 Urine Glucose (UA) >=500 mg/dL (Normal) 10/31/17 18:55 Urine Ketones Negative mg/dL (NEGATIVE) 10/31/17 18:55 Urine Blood Large (NEGATIVE) 10/31/17 18:55 Urine Nitrate Negative (NEGATIVE) 10/31/17 18:55 Urine Bilirubin Negative (NEGATIVE) 10/31/17 18:55 Urine Urobilinogen 0.2-1.0 mg/dL (0.2-1.0) 10/31/17 18:55 Ur Leukocyte Esterase Small Heidy/uL (Negative) 10/31/17 18:55 Urine RBC (Auto) 1930 /hpf (0-3) H 10/31/17 18:55 Urine Microscopic WBC 81 /hpf (0-5) H 10/31/17 18:55 Ur Squamous Epith Cells 1 /hpf (0-5) 10/31/17 18:55 Blood Type B POSITIVE 10/31/17 18:35 Antibody Screen Negative 10/31/17 18:35 BBK History Checked Patient has bt 10/31/17 18:35 - Hospital Course Hospital Course: 77 yo female with history of Schizophrenia, DM2, Dementia and HTN brought back because of urinary frequency and hematuria of 2 weeks duration. Patient was admitted 2 months ago with UTI and Hemorrhagic Cystitis. She was discharged after 3 days to TCU where spent another 5 days for continuation of IV antibiotics. She was advised follow up with a urologist but never did. She was restarted with Meropenem and did well. Hematuria had cleared and patient and patient was discharged in stable condition. She would continue with Macrobid PO BID for another 10 days and would follow up with urologist as outpatient because of recurrent hematuria and bilateral hydronephrosis. Discharge Exam - Head Exam Head Exam: NORMOCEPHALIC - Eye Exam Eye Exam: absent: Scleral icterus - ENT Exam ENT Exam: Mucous Membranes Moist - Respiratory Exam Respiratory Exam: absent: Rales, Rhonchi, Wheezes, Respiratory Distress - Cardiovascular Exam Cardiovascular Exam: REGULAR RHYTHM, +S1, +S2 - GI/Abdominal Exam GI & Abdominal Exam: Soft. absent: Tenderness - Rectal Exam Rectal Exam: Deferred - Neurological Exam Neurological exam: Alert - Psychiatric Exam Psychiatric exam: Normal Affect - Skin Skin Exam: Dry, Intact Discharge Plan - Discharge Medications Prescriptions: Nitrofurantoin Macrocrystals [Macrobid] 100 mg PO BID #20 cap - Follow Up Plan Condition: FAIR Disposition: HOME/ ROUTINE Instructions: Dehydration, Adult (DC), Blood in the Urine (Hematuria), Adult ( DC), Urinary Tract Infection in Women (DC) Additional Instructions: follow up with primary MD and urologist 1 week Referrals: Wale Manriquez MD [Staff Provider] - Gee Encarnacion MD [Staff Provider] - Korey Morales MD [Family Provider] -
== END 2017-11-03 14:07 | disposition home or self-care (01) | DRG 690 ==
LOC: H.ER 17:59 → H.ERHOLD 21:10 → H.MEDSURG1 22:47 → OBSVTOIN 11-01 12:02 → H.MEDSURG1 11-01 17:42
PROVIDERS: ADMIT Internal Medicine; ATTEND Internal Medicine
DX: N39.0 Urinary tract infection, site not specified (principal); N13.6 Pyonephrosis; N32.89 Other specified disorders of bladder; Z79.02 Long term (current) use of antithrombotics/antiplatelets; Z79.4 Long term (current) use of insulin; Z79.82 Long term (current) use of aspirin; Z87.891 Personal history of nicotine dependence; Z88.0 Allergy status to penicillin; Z90.49 Acquired absence of other specified parts of digestive tract; Z95.5 Presence of coronary angioplasty implant and graft; M19.90 Unspecified osteoarthritis, unspecified site; R41.89 Other symptoms and signs involving cognitive functions and awareness; Z79.899 Other long term (current) drug therapy; E03.9 Hypothyroidism, unspecified; E78.5 Hyperlipidemia, unspecified; E86.0 Dehydration; F03.90 Unspecified dementia, unspecified severity, without behavioral disturbance, psychotic disturbance, mood disturbance, and anxiety; F20.9 Schizophrenia, unspecified; I10 Essential (primary) hypertension; I25.10 Atherosclerotic heart disease of native coronary artery without angina pectoris; E11.59 Type 2 diabetes mellitus with other circulatory complications; E11.65 Type 2 diabetes mellitus with hyperglycemia; N28.89 Other specified disorders of kidney and ureter

== ENCOUNTER 2018-02-18 13:22 | Observation (INO) | payer MEDICARE, OTHER ==
[2018-02-18 13:23] VITALS: BMI 26.3
[2018-02-18] MEDS ORDERED: Sodium Chloride 0.9% 1,000 ML IV STA ×2 (13:37→16:25)
--- NOTE | 2018-02-18 13:54 | ED PDOC ---
HPI: Female Pain Time Seen by Provider: 02/18/18 13:36 Chief Complaint (Nursing): GI Problem Chief Complaint (Provider): Bloody urine History Per: Patient, Family History/Exam Limitations: clinical condition Onset/Duration Of Symptoms: Hrs (today) Associated Symptoms: denies: Fever, Chills, Nausea, Vomiting, Diarrhea Additional Complaint(s): Staci Mohan is a 77 year old female, with a past medical history of Schizophrenia, HTN, chronic kidney disease, hypercholesterolemia, diabetes and cardiac stents, who was brought to the emergency department by EMS accompanied by family for bloody urine noticed today. Family state patient recently finished a course of antibiotics for x1 week. Patient denies any abdominal pain, nausea, vomiting, diarrhea, bloody stools, vision changes, headache, dizziness, chest pain, shortness of breath, fever, chills or other medical complaints. HPI limited due to baseline symptoms of schizophrenia, patient only responding to s ome questions. Per family members, patient also hasn't been walking for a couple of months but is able to move her extremities on her own will. PMD: Korey Morales Past Medical History Reviewed: Historical Data, Nursing Documentation, Vital Signs Vital Signs: Last Vital Signs Temp 97 F L 02/18/18 13:28 Pulse 81 02/18/18 13:28 Resp 16 02/18/18 13:28 BP 143/69 02/18/18 13:28 Pulse Ox 98 02/18/18 13:28 - Medical History PMH: Arthritis, Dementia, Diabetes, HTN, Hypercholesterolemia, Chronic Kidney Disease, Schizophrenia Denies: Atrial Fibrillation, Cardia Arrhythmia, CHF, CVA, HIV, Mitral Valve Prolapse - Surgical History Surgical History: Cholecystectomy, Coronary Stent - Family History Family History: States: Unknown Family Hx - Home Medications Home Medications: Ambulatory Orders Medication Instructions Recorded Insulin Detemir [Levemir] 15 units SC BID 06/29/14 Carvedilol [Coreg] 6.25 mg PO Q12 09/07/17 Lisinopril [Zestril] 10 mg PO DAILY 09/07/17 Perphenazine 2 mg PO Q12 09/07/17 Rosuvastatin Calcium [Crestor] 10 mg PO DAILY 09/07/17 Aspirin [Adult Low Dose Aspirin EC] 81 mg PO DAILY 10/31/17 Clopidogrel [Plavix] 75 mg PO DAILY 10/31/17 - Allergies Allergies/Adverse Reactions: Allergies Allergy/AdvReac Type Severity Reaction Status Date / Time Penicillins Allergy RASH Verified 10/31/17 18:03 Review of Systems Review Of Systems: ROS cannot be obtained secondary to pt's inabilty to answer questions. Constitutional: Negative for: Fever, Chills Eyes: Negative for: Vision Change Cardiovascular: Negative for: Chest Pain Respiratory: Negative for: Shortness of Breath Gastrointestinal: Negative for: Nausea, Vomiting, Abdominal Pain, Diarrhea, Hematochezia Genitourinary Female: Positive for: Hematuria Musculoskeletal: Positive for: Leg Pain (chronic) Physical Exam - Reviewed Nursing Documentation Reviewed: Yes Vital Signs Reviewed: Yes - Physical Exam Head Exam: Positive for: ATRAUMATIC, NORMOCEPHALIC Skin: Positive for: Normal Color, Warm, Dry Eye Exam: Positive for: Other (L eye blind). Negative for: Periorbital swelling, Periorbital tenderness Neck: Positive for: Painless ROM Cardiovascular/Chest: Positive for: Regular Rate, Rhythm. Negative for: Murmur Respiratory: Positive for: Normal Breath Sounds. Negative for: Respiratory Distress Gastrointestinal/Abdominal: Positive for: Normal Exam, Soft. Negative for: Te nderness, Guarding, Rebound Back: Positive for: Normal Inspection. Negative for: L CVA Tenderness, R CVA Tenderness, Vertebral Tenderness Extremity: Positive for: Normal ROM (upper and lower extremities). Negative for: Deformity, Swelling Neurologic/Psych: Positive for: Alert - Laboratory Results Result Diagrams: 02/18/18 14:40 02/18/18 14:40 Interpretation Of Abn Labs: 11 wbc, lactate normal, urine wbc - ECG ECG: Positive for: Interpreted By Nh ECG Rhythm: Positive for: Nonspecific Changes Interpretation Of Abn EKG: same as old O2 Sat by Pulse Oximetry: 98 (RA) Pulse Ox Interpretation: Normal - Radiology X-Ray: Read By Radiologist X-Ray Interpretation: No Acute Disease - CT Scan/US ct Other Rad Studies (CT/US): Read By Radiologist Other Rad Interpretation: cystitis - Progress ED Course And Treament: 1625: Ph 6.83, not likely correct. Lactate wnl. Alert. 1837: Does not meet sepsis criteria. Pt. stable. Will give antibiotics based on previous urine cx. Spoke with Dr. Anne. Will admit. No cefepime as pt. is pcn allergic. Medical Decision Making Medical Decision Making: Time: 13:36 Initial Impression: Hematuria Initial Plan: --Type and screen --VBG --EKG --CMP --Troponin I --Urine dip --CBC w/ differential --PTT --PT --Sodium Chloride 1,000 ml IV 1,000 mls/hr --Abd & Pelvis IV Contrast [CT] --Chest portable [RAD] --CMP --Magnesium --Phosphorus --Blood culture --Urine culture --Urinalysis --Reevaluation 14:46 CXR FINDINGS: LUNGS: No active pulmonary disease. PLEURA: No significant pleural effusion identified, no pneumothorax apparent. CARDIOVASCULAR: Atherosclerotic aortic calcifications. Cardiomediastinal silhouette stably enlarged OSSEOUS STRUCTURES: Unchanged. VISUALIZED UPPER ABDOMEN: Normal. OTHER FINDINGS: None. IMPRESSION: No active disease. Scribe Attestation: Documented by Mauricio Renteria, acting as a scribe for Griffin Beltran MD. Provider Scribe Attestation: All medical record entries made by the Scribe were at my direction and personally dictated by me. I have reviewed the chart and agree that the record accurately reflects my personal performance of the history, physical exam, medical decision making, and the department course for this patient. I have also personally directed, reviewed, and agree with the discharge instructions and disposition. Disposition - Clinical Impression Clinical Impression: UTI (urinary tract infection), Hyperglycemia - Patient ED Disposition Is Patient to be Admitted: Yes Counseled Patient/Family Regarding: Studies Performed, Diagnosis - Disposition Disposition Time: 18:00 Condition: FAIR - Pt Status Changed To: Hospital Disposition Of: Inpatient - Admit Certification Admit to Inpatient:: After my assessment, the patient will require hospitalizati on for at least two midnights. This is because of the severity of symptoms shown, intensity of services needed, and/or the medical risk in this patient being treated as an outpatient.
--- NOTE | 2018-02-18 14:48 | RAD ---
Date of service: 02/18/2018 HISTORY: Sepsis Patient COMPARISON: Chest radiograph dated 12/20/2016. FINDINGS: LUNGS: No active pulmonary disease. PLEURA: No significant pleural effusion identified, no pneumothorax apparent. CARDIOVASCULAR: Atherosclerotic aortic calcifications. Cardiomediastinal silhouette stably enlarged OSSEOUS STRUCTURES: Unchanged. VISUALIZED UPPER ABDOMEN: Normal. OTHER FINDINGS: None. IMPRESSION: No active disease.
[2018-02-18 14:56] LABS: URINE BILIRUBIN NEGATIVE (NEGATIVE); URINE BLOOD LARGE (NEGATIVE); URINE CLARITY TURBID (Clear); URINE COLOR YELLOW (YELLOW); URINE GLUCOSE (UA) >=500 mg/dL (Normal); URINE LEUKOCYTE ESTERASE LARGE Leu/uL (Negative); URINE PROTEIN 100 mg/dL (NEGATIVE); URINE UROBILINOGEN 0.2-1.0 mg/dL (0.2-1.0)
[2018-02-18 14:57] LABS: BASO # 0.1 K/uL (0.0-0.2); BASO % 0.6 % (0.0-2.0); EOS # 0.1 K/uL (0.0-0.7); EOS % 0.6 % (0.0-4.0); LYMPH % 17.7 % (20.0-40.0); MEAN CELL VOLUME 91.8 fl (81.0-99.0); MEAN CORPUSCULAR HEMOGLOBIN 31.4 pg (27.0-31.0); MEAN CORPUSCULAR HGB CONC 34.2 g/dL (33.0-37.0); MEAN PLATELET VOLUME 8.3 fl (7.2-11.7); MONO # 1.2 K/uL (0.0-0.8); MONO % 10.5 % (0.0-10.0); NEUT # 7.8 K/uL (1.8-7.0); NEUT % 70.6 % (50.0-75.0); NRBC % 0.1 % (0.0-0.0); RBC 3.84 Mil/uL (3.80-5.20); RED CELL DISTRIBUTION WIDTH 13.9 % (11.5-14.5)
[2018-02-18 15:14] LABS: ALB/GLOB RATIO 1.1 (1.0-2.1); ALBUMIN 3.7 g/dL (3.5-5.0); ALT/SGPT 19 U/L (9-52); AST/SGOT 17 U/L (14-36); BLOOD UREA NITROGEN 24 mg/dl (7-17); CALCIUM 9.2 mg/dL (8.4-10.2); GFR NON-AFRICAN AMERICAN 54
[2018-02-18 15:49] LABS: PROTHROMBIN TIME 11.2 Seconds (9.8-13.1)
[2018-02-18 15:52] LABS: VENOUS BLOOD GAS BASE EXCESS -25.5 mmol/L (0.0-2.0); VENOUS BLOOD GAS PCO2 53 mmHg (40-60); VENOUS BLOOD GAS PO2 54 mm/Hg (30-55); VENOUS BLOOD PH 6.83 (7.32-7.43)
[2018-02-18 15:52] LABS: PARTIAL THROMBOPLASTIN TIME 25.1 Seconds (25.6-37.1)
[2018-02-18] MEDS ORDERED: Sodium Chloride 0.9% 50 ML IV ONE (16:06)
[2018-02-18] MEDS ORDERED: Iodixanol 320 MG/ML 100 ML BOTTLE IV ONE (16:06)
[2018-02-18] MEDS ORDERED: cefTRIAXone (Rocephin) 1 gm Inj IV ONE (16:20)
[2018-02-18] MEDS ORDERED: Ciprofloxacin 400mg/200ml D5W 400 MG/200 ML BAG IV STA (16:24)
[2018-02-18] MEDS ORDERED: Insulin Regular 100 units/ml IV STA (16:34)
[2018-02-18] MEDS ORDERED: Ciprofloxacin 400mg/200ml D5W 400 MG/200 ML BAG IVPB ONE (17:55)
[2018-02-18] MEDS ORDERED: Insulin Regular 100 units/ml ONE (17:57)
--- NOTE | 2018-02-18 18:18 | CT ---
Date of service: 02/18/2018 PROCEDURE: CT Abdomen and Pelvis with and without intravenous contrast HISTORY: URINE WITH BLOOD COMPARISON: CT scan of the abdomen and pelvis dated 10/31/2017 TECHNIQUE: Axial images of the abdomen were obtained in the pre contrast, portal venous and delayed phases of enhancement. Coronal and sagittal reformats were generated. Contrast dose: 90 mL Visipaque 320 Radiation dose: Total exam DLP = 1425.8 mGy-cm. This CT exam was performed using one or more of the following dose reduction techniques: Automated exposure control, adjustment of the mA and/or kV according to patient size, and/or use of iterative reconstruction technique. FINDINGS: LOWER THORAX: Unremarkable. LIVER: Unremarkable. No gross lesion or ductal dilatation. GALLBLADDER AND BILE DUCTS: Unremarkable. PANCREAS: Unremarkable. No gross lesion or ductal dilatation. SPLEEN: Unremarkable. ADRENALS: Unremarkable. No mass. KIDNEYS AND URETERS: Stable atrophy of the left kidney. Resolution of her pelvic caliectasis and hydroureter. No hydronephrosis. No solid mass. VASCULATURE: Unremarkable. No aortic aneurysm. BOWEL: Unremarkable. No obstruction. No gross mural thickening. APPENDIX: Normal appendix. PERITONEUM: Small fat containing umbilical hernia. No free fluid. No free air. LYMPH NODES: Unremarkable. No enlarged lymph nodes. BLADDER: Decompressed around a Ramos catheter. Wall thickening with surrounding inflammatory change REPRODUCTIVE: Stable left adnexal 2.8 cm cyst. BONES: No acute fracture. Degenerative changes. OTHER FINDINGS: None. IMPRESSION: Acute cystitis. Resolution of previously seen pelvocaliectasis in hydroureter. Additional stable findings as above.
[2018-02-18] MEDS ORDERED: Cefepime (Maxipime) 1 g Inj IVPB STA (18:35)
[2018-02-18] MEDS ORDERED: Meropenem 500 MG in Sodium Chloride 0.9% 100 ML IVPB STA (18:44)
--- NOTE | 2018-02-18 20:46 | CP.PCM.HP ---
Addendum entered and electronically signed by Joan Anne MD 02/19/18 07:17: Patient was seen and examined bedside and history obtained from patient and family . All chart and clinical data reviewed . Case discussed with resident . Agree with assessment and plan Will place patient under observation for monitoring due to uncontrolled BS > 400 Ph 7.68 Start IV antibiotics for UTI and send urine cultures Repeat CBC in Am and monitor for orther episodes of rectal bleed Original Note: History of Present Illness - History of Present Illness History of Present Illness: CC: Weakness and small bright red blood per rectum HPI: 77 y/o woman w/ pmh of Arthritis, Dementia, IDDM2, HTN, CAD s/p coronary stent, [place], HLD, Schizophrenia presents to the ED w/ weakness and bright red blood per rectum. Patient had large bowel movement at 04:00 this morning, which cleaned. went out to attend to chores around 07:00-08:00 am, as home advisor arrived. cam maker cleans patient and reports to what appears to be blood from the rectum. tells home advisor to take patient to ED. Patient has history of recurrent UTI w/ hemorrhagic cystitis at times. Patient was seen by PMD, treated for UTI, and completed abx for 5 days. Patient denies hematuria, hematochezia, melena, abdominal pain, nausea, vomiting, diarrhea, dysuria, headaches, chest pain, SOB, or fever. Patient ambulates w/ assistance. notes that patient is weaker than usual. ED course: vitals:98.3 F, 75 beats/min, 176/86 mm hg, resp 18, O2 100% room air CBC: 11.0>12.0/35.2<197 coags: PT 11.2, INR 1.0, aPTT 25.1 CMP: 134/4.9,104/22, 24/1.0, glucose 421, AST 17, aLT 19, alk phos 92 troponin: 0.0460 VBG: pO2 54, pH 6.83, pCO2 53, HCO3 3.8, lactate 1.6 UA: glucose >500, large blood, large leukocyte esterase, RBC 200, WBC 899, neg ketones, neg nitrate CXR: no active disease CT abdomen/pelvis: Acute cystitis. Resolution of previously seen pelvocaliectasis in hydroureter. ciprofloxacin 400 mg IV once gentamicin 120 mg IV once IVF NS bolus IVF NS @ 500mL/hr PMD: Dr. Morales PMH: Arthritis, Dementia, IDDM2, HTN, CAD s/p coronary stent, [place], HLD, Schizophrenia Allergies: PCN Meds: see med list PSH: Cholecystectomy, Coronary Stent Fam: Significant for DM; CAD; Hypothyroidism SOC: No illegal drug use; live with her family; Former Smoker; totally dependent on her; No Alcohol ROS: 12 points assessed and negative unless otherwise reported in HPI Present on Admission - Present on Admission Any Indicators Present on Admission: Yes History of DVT/PE: No History of Uncontrolled Diabetes: Yes Urinary Catheter: No Decubitus Ulcer Present: No Review of Systems - Review of Systems All systems: reviewed and no additional remarkable complaints except - Constitutional Constitutional: absent: Chills, Fever, Night Sweats - EENT Eyes: absent: Change in Vision - Cardiovascular Cardiovascular: absent: Chest Pain - Respiratory Respiratory: absent: Cough, Dyspnea - Gastrointestinal Gastrointestinal: absent: Abdominal Pain, Change in Stool Character, Diarrhea, Hematochezia, Melena, Nausea, Vomiting - Genitourinary Genitourinary: absent: Dysuria, Urinary Frequency - Integumentary Integumentary: absent: Rash Past Patient History - Infectious Disease Hx of Infectious Diseases: None - Tetanus Immunizations Tetanus Immunization: Unknown - Past Medical History & Family History Past Medical History?: Yes - Past Social History Smoking Status: Former Smoker - CARDIAC Hx Atrial Fibrillation: No Hx Cardia Arrhythmia: No Hx Congestive Heart Failure: No Hx Hypercholesterolemia: Yes Hx Hypertension: Yes Hx Mitral Valve Prolapse: No - PULMONARY Hx Respiratory Disorders: No - NEUROLOGICAL Hx Dementia: Yes - HEENT Hx HEENT Problems: No - RENAL Hx Chronic Kidney Disease: Yes - ENDOCRINE/METABOLIC Hx Endocrine Disorders: Yes Hx Diabetes Mellitus Type 1: Yes - HEMATOLOGICAL/ONCOLOGICAL Hx Human Immunodeficiency Virus (HIV): No - INTEGUMENTARY Hx Dermatological Problems: No - MUSCULOSKELETAL/RHEUMATOLOGICAL Hx Arthritis: Yes - GASTROINTESTINAL Hx Gastrointestinal Disorders: Yes Hx Nausea: Yes Hx Vomiting: Yes - GENITOURINARY/GYNECOLOGICAL Hx Genitourinary Disorders: No - PSYCHIATRIC Hx Schizophrenia: Yes - SURGICAL HISTORY Hx Cholecystectomy: Yes Hx Coronary Stent: Yes - ANESTHESIA Hx Anesthesia: Yes Hx Anesthesia Reactions: No Hx Malignant Hyperthermia: No Meds Allergies/Adverse Reactions: Allergies Allergy/AdvReac Type Severity Reaction Status Date / Time Penicillins Allergy RASH Verified 10/31/17 18:03 Physical Exam - Constitutional Appears: Non-toxic, No Acute Distress - Head Exam Head Exam: ATRAUMATIC, NORMAL INSPECTION, NORMOCEPHALIC - Eye Exam Additional comments: left eye blindness - ENT Exam ENT Exam: Mucous Membranes Moist - Neck Exam Neck exam: Positive for: Full Rom. Negative for: Tenderness - Respiratory Exam Respiratory Exam: Clear to Auscultation Bilateral. absent: Accessory Muscle Use, Decreased Breath Sounds, Rales, Rhonchi, Wheezes, Respiratory Distress - Cardiovascular Exam Cardiovascular Exam: REGULAR RHYTHM, RRR, +S1, +S2. absent: Tachycardia - GI/Abdominal Exam GI & Abdominal Exam: Normal Bowel Sounds, Soft. absent: Distended, Tenderness - Rectal Exam Rectal Exam: Deferred - Neurological Exam Neurological exam: Alert, Oriented x3 - Skin Skin Exam: Dry, Normal Color, Warm Results - Vital Signs Recent Vital Signs: Last Vital Signs Temp 98.3 F 02/18/18 19:36 Pulse 75 02/18/18 19:36 Resp 18 02/18/18 19:36 BP 176/86 H 02/18/18 19:36 Pulse Ox 100 02/18/18 19:36 - Labs Result Diagrams: 02/18/18 14:40 02/18/18 14:40 Labs: Laboratory Results - last 24 hr 02/18/18 02/18/18 02/18/18 13:45 14:40 14:40 WBC 11.0 H RBC 3.84 Hgb 12.0 Hct 35.2 MCV 91.8 D MCH 31.4 H MCHC 34.2 RDW 13.9 Plt Count 197 D MPV 8.3 Neut % (Auto) 70.6 Lymph % (Auto) 17.7 L [place] % (Auto) 10.5 H Eos % (Auto) 0.6 Baso % (Auto) 0.6 Neut # (Auto) 7.8 H Lymph # (Auto) 2.0 [place] # (Auto) 1.2 H Eos # (Auto) 0.1 Baso # (Auto) 0.1 PT INR APTT pO2 VBG pH VBG pCO2 VBG HCO3 VBG Total CO2 VBG O2 Sat (Calc) VBG Base Excess VBG Potassium Glucose Lactate FiO2 Crit Value Called To Crit Value Called By Crit Value Read Back Blood Gas Notified Time Sodium 134 Potassium 4.9 Chloride 104 Carbon Dioxide 22 Anion Gap 13 BUN 24 H Creatinine 1.0 Est GFR ( Amer) > 60 Est GFR (Non-Af Amer) 54 POC Glucose (mg/dL) 447 H* Random Glucose 421 H* D Calcium 9.2 Phosphorus 3.8 Magnesium 2.1 Total Bilirubin 0.5 AST 17 ALT 19 Alkaline Phosphatase 92 Troponin I 0.0460 Total Protein 7.1 Albumin 3.7 Globulin 3.4 Albumin/Globulin Ratio 1.1 Venous Blood Potassium Urine Color Urine Clarity Urine pH Ur Specific [place] Urine Protein Urine Glucose (UA) Urine Ketones Urine Blood Urine Nitrate Urine Bilirubin Urine Urobilinogen Ur Leukocyte Esterase Urine RBC (Auto) Urine Microscopic WBC Blood Type Antibody Screen BBK History Checked 02/18/18 02/18/18 02/18/18 14:40 15:30 15:30 WBC RBC Hgb Hct MCV MCH MCHC RDW Plt Count MPV Neut % (Auto) Lymph % (Auto) [place] % (Auto) Eos % (Auto) Baso % (Auto) Neut # (Auto) Lymph # (Auto) [place] # (Auto) Eos # (Auto) Baso # (Auto) PT 11.2 INR 1.0 APTT 25.1 L pO2 VBG pH VBG pCO2 VBG HCO3 VBG Total CO2 VBG O2 Sat (Calc) VBG Base Excess VBG Potassium Glucose Lactate FiO2 Crit Value Called To Crit Value Called By Crit Value Read Back Blood Gas Notified Time Sodium Potassium Chloride Carbon Dioxide Anion Gap BUN Creatinine Est GFR ( Amer) Est GFR (Non-Af Amer) POC Glucose (mg/dL) Random Glucose Calcium Phosphorus Magnesium Total Bilirubin AST ALT Alkaline Phosphatase Troponin I Total Protein Albumin Globulin Albumin/Globulin Ratio Venous Blood Potassium Urine Color Yellow Urine Clarity Turbid Urine pH 6.0 Ur Specific [place] 1.018 Urine Protein 100 Urine Glucose (UA) >=500 Urine Ketones Negative Urine Blood Large Urine Nitrate Negative Urine Bilirubin Negative Urine Urobilinogen 0.2-1.0 Ur Leukocyte Esterase Large Urine RBC (Auto) 200 H Urine Microscopic WBC 899 H Blood Type B POSITIVE Antibody Screen Negative BBK History Checked Patient has bt 02/18/18 02/18/18 15:47 19:33 WBC RBC Hgb Hct MCV MCH MCHC RDW Plt Count MPV Neut % (Auto) Lymph % (Auto) [place] % (Auto) Eos % (Auto) Baso % (Auto) Neut # (Auto) Lymph # (Auto) [place] # (Auto) Eos # (Auto) Baso # (Auto) PT INR APTT pO2 54 VBG pH 6.83 L* VBG pCO2 53 VBG HCO3 3.8 VBG Total CO2 10.4 L VBG O2 Sat (Calc) 92.8 H VBG Base Excess -25.5 L VBG Potassium 3.0 L Glucose 301 H Lactate 1.6 FiO2 21.0 Crit Value Called To Mo josé Crit Value Called By 23 Crit Value Read Back Y Blood Gas Notified Time 1550 Sodium 149.0 H Potassium Chloride 60.0 L Carbon Dioxide Anion Gap BUN Creatinine Est GFR ( Amer) Est GFR (Non-Af Amer) POC Glucose (mg/dL) 435 H* Random Glucose Calcium Phosphorus Magnesium Total Bilirubin AST ALT Alkaline Phosphatase Troponin I Total Protein Albumin Globulin Albumin/Globulin Ratio Venous Blood Potassium 3.0 L Urine Color Urine Clarity Urine pH Ur Specific [place] Urine Protein Urine Glucose (UA) Urine Ketones Urine Blood Urine Nitrate Urine Bilirubin Urine Urobilinogen Ur Leukocyte Esterase Urine RBC (Auto) Urine Microscopic WBC Blood Type Antibody Screen BBK History Checked Assessment & Plan (1) BRBPR (bright red blood per rectum) Status: Acute (2) UTI (urinary tract infection) Status: Acute (3) CAD (coronary artery disease) Status: Chronic (4) Uncontrolled type 2 diabetes mellitus with hyperglycemia Status: Chronic (5) HTN (hypertension) Status: Chronic (6) HLD (hyperlipidemia) Status: Chronic (7) Schizophrenia Status: Chronic - Assessment and Plan (Free Text) Assessment: 77 y/o woman w/ pmh of Arthritis, Dementia, IDDM2, HTN, CAD s/p coronary stent, [place], HLD, Schizophrenia presents to the ED w/ weakness and bright red blood per rectum. Plan: Bright red blood per rectum - one episode as reported per home advisor, no subsequent episodes - BP elevated - CBC: 11.0>12.0/35.2<197 - coags: PT 11.2, INR 1.0, aPTT 25.1 - CMP: 134/4.9,104/22, 24/1.0, glucose 421, AST 17, aLT 19, alk phos 92 - troponin: 0.0460 - f/u CBC, CMP - f/u blood and urine culture - monitor for acute changes - admit to [facility] UTI - recently completed course of outpatient abx - UA: glucose >500, large blood, large leukocyte esterase, RBC 200, WBC 899, neg ketones, neg nitrate - CXR: no active disease - CT abdomen/pelvis: Acute cystitis. Resolution of previously seen pelvocaliectasis in hydroureter. - ciprofloxacin 400 mg IV once - gentamicin 120 mg IV once - IVF NS bolus - IVF NS @ 500mL/hr - levofloxacin 250 mg IV daily - monitor for acute changes CAD - s/p coronary stents - c/w ASA, lipitor, coreg, plavix HTN - BP elevated - c/w lisinopril - continue to monitor IDDM2 - accucheck 435 - VBG: pO2 54, pH 6.83, pCO2 53, HCO3 3.8, lactate 1.6 - c/w levemir 20 units SC BID - insulin correction scale - hypoglycemic protocol HLD - c/w lipitor Schizophrenia - c/w perphenazine 2 mg PO Q12h Prophylactic measures - DVT: lovenox 40 mg SC daily
[2018-02-18] MEDS ORDERED: Cefepime 1 GM in Sodium Chloride 0.9% 100 ML IVPB SCH (21:00)
[2018-02-18] MEDS ORDERED: Glucagon Recombinant 1 mg Inj IM PRN (21:08)
[2018-02-18] MEDS ORDERED: Dextrose 50% SYRINGE Inj (50 ml) IV PRN (21:08)
[2018-02-18] MEDS: Sodium Chloride 0.9% 1,000 ML IV SCH (21:59)
[2018-02-18] MEDS: Insulin Lispro (humaLOG) 100 Units/ml Inj SC SCH (22:00)
[2018-02-18 23:50] VITALS: O2SAT 99
[2018-02-19] MEDS: Sodium Chloride 0.9% 1,000 ML IV SCH (08:23)
--- NOTE | 2018-02-19 08:35 | CARD ---
APPROVED REPORT Date of service: 02/18/2018 EKG Measurement Heart [id number] <Conclusion> Normal sinus rhythm Left ventricular hypertrophy with repolarization abnormality Cannot rule out Septal infarct, age undetermined Cannot rule out Inferior infarct, age undetermined Prolonged QT Abnormal ECG
[2018-02-19 08:46] VITALS: BP 128/73; PULSE 79; RESP 20; TEMP 98.6
[2018-02-19] MEDS ORDERED: levoFLOXacin 250 mg in D5W 250 MG/50 ML BAG IVPB SCH (09:00)
[2018-02-19] MEDS ORDERED: Enoxaparin 40 mg Syringe SC SCH (09:00)
[2018-02-19] MEDS ORDERED: Insulin Detemir 100 Units/ml Inj SC SCH (09:00)
[2018-02-19] MEDS ORDERED: Vitamin A/D oint 60G TP PRN (09:14)
[2018-02-19] MEDS: Insulin Lispro (humaLOG) 100 Units/ml Inj SC SCH ×2 (09:58→11:54)
--- NOTE | 2018-02-19 11:02 | CP.PCM.DIS ---
Addendum entered and electronically signed by Joan Anne MD 02/19/18 15:49: Patient was seen and examined bedside . Chronically ill female,with PMH of schizophrenia brought for fresh blood per rectum . She was found to be hemodynamically stable, afebrile, with accucheck > 400 ph 6.8.She had bacteria , WBC and LE in urine She was placed under observation in med/surg , started on IVF , her long acting insulin and short term insulin coverage for her uncontrolled diabetes with hyperglycemia . She was also started on levaquine IV for UTI Patient was monitored for other rectal bleeding episodes and nothing was recorded . Today she is hemodynamically stable and wants to go home Will discharge patient home with family Advice to be compliant with her meds Will send prescription for Macobid 100 mg po bid for 7 days to her pharmacy DX Rectal blood per rectum -- Hgb 12 , no breonna episodes of bleeding . UTI-- Started macrobid 100 mg po bid uncontrolled DM with hyperglycemia-- treated with IVF , levemir and short term insulin coverage Schizofrenia Hypertension CAD Dyslipidemia Original Note: Provider - Provider Date of Admission: 02/18/18 18:42 Attending physician: Joan Anne MD Time Spent in preparation of Discharge (in minutes): 20 Diagnosis - Discharge Diagnosis (1) BRBPR (bright red blood per rectum) Status: Chronic (2) UTI (urinary tract infection) Status: Acute (3) DM2 (diabetes mellitus, type 2) Status: Chronic (4) CAD (coronary artery disease) Status: Chronic (5) HLD (hyperlipidemia) Status: Chronic (6) HTN (hypertension) Status: Chronic (7) Schizophrenia Status: Chronic Hospital Course - Lab Results Lab Results: Most Recent Lab Values WBC 11.0 K/uL (4.8-10.8) H 02/18/18 14:40 RBC 3.84 Mil/uL (3.80-5.20) 02/18/18 14:40 Hgb 12.0 g/dL (12.0-16.0) 02/18/18 14:40 Hct 35.2 % (34.0-47.0) 02/18/18 14:40 MCV 91.8 fl (81.0-99.0) D 02/18/18 14:40 MCH 31.4 pg (27.0-31.0) H 02/18/18 14:40 MCHC 34.2 g/dL (33.0-37.0) 02/18/18 14:40 RDW 13.9 % (11.5-14.5) 02/18/18 14:40 Plt Count 197 K/uL (130-400) D 02/18/18 14:40 MPV 8.3 fl (7.2-11.7) 02/18/18 14:40 Neut % (Auto) 70.6 % (50.0-75.0) 02/18/18 14:40 Lymph % (Auto) 17.7 % (20.0-40.0) L 02/18/18 14:40 [place] % (Auto) 10.5 % (0.0-10.0) H 02/18/18 14:40 Eos % (Auto) 0.6 % (0.0-4.0) 02/18/18 14:40 Baso % (Auto) 0.6 % (0.0-2.0) 02/18/18 14:40 Neut # (Auto) 7.8 K/uL (1.8-7.0) H 02/18/18 14:40 Lymph # (Auto) 2.0 K/uL (1.0-4.3) 02/18/18 14:40 [place] # (Auto) 1.2 K/uL (0.0-0.8) H 02/18/18 14:40 Eos # (Auto) 0.1 K/uL (0.0-0.7) 02/18/18 14:40 Baso # (Auto) 0.1 K/uL (0.0-0.2) 02/18/18 14:40 PT 11.2 Seconds (9.8-13.1) 02/18/18 15:30 INR 1.0 02/18/18 15:30 APTT 25.1 Seconds (25.6-37.1) L 02/18/18 15:30 pO2 54 mm/Hg (30-55) 02/18/18 15:47 VBG pH 6.83 (7.32-7.43) L* 02/18/18 15:47 VBG pCO2 53 mmHg (40-60) 02/18/18 15:47 VBG HCO3 3.8 mmol/L 02/18/18 15:47 VBG Total CO2 10.4 mmol/L (22-28) L 02/18/18 15:47 VBG O2 Sat (Calc) 92.8 % (40-65) H 02/18/18 15:47 VBG Base Excess -25.5 mmol/L (0.0-2.0) L 02/18/18 15:47 VBG Potassium 3.0 mmol/L (3.6-5.2) L 02/18/18 15:47 Sodium 149.0 mmol/L (132-148) H 02/18/18 15:47 Chloride 60.0 mmol/L (98-107) L 02/18/18 15:47 Glucose 301 mg/dL (65-105) H 02/18/18 15:47 Lactate 1.6 mmol/L (0.7-2.1) 02/18/18 15:47 FiO2 21.0 % 02/18/18 15:47 Crit Value Called To Mo josé 02/18/18 15:47 Crit Value Called By 23 02/18/18 15:47 Crit Value Read Back Y 02/18/18 15:47 Blood Gas Notified Time 1550 02/18/18 15:47 Sodium 134 mmol/l (132-148) 02/18/18 14:40 Potassium 4.9 MMOL/L (3.6-5.0) 02/18/18 14:40 Chloride 104 mmol/L (98-107) 02/18/18 14:40 Carbon Dioxide 22 mmol/L (22-30) 02/18/18 14:40 Anion Gap 13 (10-20) 02/18/18 14:40 BUN 24 mg/dl (7-17) H 02/18/18 14:40 Creatinine 1.0 mg/dl (0.7-1.2) 02/18/18 14:40 Est GFR ( Amer) > 60 02/18/18 14:40 Est GFR (Non-Af Amer) 54 02/18/18 14:40 POC Glucose (mg/dL) 196 mg/dL (65-110) H 02/19/18 05:17 Random Glucose 421 mg/dL (65-105) H* D 02/18/18 14:40 Calcium 9.2 mg/dL (8.4-10.2) 02/18/18 14:40 Phosphorus 3.8 mg/dl (2.5-4.5) 02/18/18 14:40 Magnesium 2.1 MG/DL (1.6-2.3) 02/18/18 14:40 Total Bilirubin 0.5 mg/dl (0.2-1.3) 02/18/18 14:40 AST 17 U/L (14-36) 02/18/18 14:40 ALT 19 U/L (9-52) 02/18/18 14:40 Alkaline Phosphatase 92 U/L (38-126) 02/18/18 14:40 Troponin I 0.0460 ng/mL (0.00-0.120) 02/18/18 14:40 Total Protein 7.1 G/DL (6.3-8.2) 02/18/18 14:40 Albumin 3.7 g/dL (3.5-5.0) 02/18/18 14:40 Globulin 3.4 gm/dL (2.2-3.9) 02/18/18 14:40 Albumin/Globulin Ratio 1.1 (1.0-2.1) 02/18/18 14:40 Venous Blood Potassium 3.0 mmol/L (3.6-5.2) L 02/18/18 15:47 Urine Color Yellow (YELLOW) 02/18/18 14:40 Urine Clarity Turbid (Clear) 02/18/18 14:40 Urine pH 6.0 (5.0-8.0) 02/18/18 14:40 Ur Specific [place] 1.018 (1.003-1.030) 02/18/18 14:40 Urine Protein 100 mg/dL (NEGATIVE) 02/18/18 14:40 Urine Glucose (UA) >=500 mg/dL (Normal) 02/18/18 14:40 Urine Ketones Negative mg/dL (NEGATIVE) 02/18/18 14:40 Urine Blood Large (NEGATIVE) 02/18/18 14:40 Urine Nitrate Negative (NEGATIVE) 02/18/18 14:40 Urine Bilirubin Negative (NEGATIVE) 02/18/18 14:40 Urine Urobilinogen 0.2-1.0 mg/dL (0.2-1.0) 02/18/18 14:40 Ur Leukocyte Esterase Large [place]/uL (Negative) 02/18/18 14:40 Urine RBC (Auto) 200 /hpf (0-3) H 02/18/18 14:40 Urine Microscopic WBC 899 /hpf (0-5) H 02/18/18 14:40 Blood Type B POSITIVE 02/18/18 15:30 Antibody Screen Negative 02/18/18 15:30 BBK History Checked Patient has bt 02/18/18 15:30 - Hospital Course Hospital Course: 77 yo female with pmh of Arthritis, Dementia, IDDM2, HTN, CAD s/p coronary stent, [place], HLD, Schizophrenia presents to the ED with weakness and bright red blood per rectum. admitted for observation. CBC were WNL no anemia noted, pt was feeling good, had no other symptoms and wanted to go home, Pt was postive for wbc and rbc in urine, and will be sent home with abx. Pt today passed stool and denies any blood. Vitals were stable, pt chart were reviewed and pt is stable to go home. Pt will be discharged home and follow up with primary care doctor Case discussed with Dr Anne Discharge Exam - Head Exam Head Exam: ATRAUMATIC, NORMAL INSPECTION, NORMOCEPHALIC - Eye Exam Eye Exam: EOMI, Normal appearance, PERRL Pupil Exam: NORMAL ACCOMODATION, PERRL - Respiratory Exam Respiratory Exam: Clear to PA & Lateral, NORMAL BREATHING PATTERN, UNREMARKABLE - Cardiovascular Exam Cardiovascular Exam: REGULAR RHYTHM, +S1, +S2 - GI/Abdominal Exam GI & Abdominal Exam: Normal Bowel Sounds, Unremarkable - Rectal Exam Rectal Exam: NORMAL INSPECTION - Neurological Exam Neurological exam: Alert - Psychiatric Exam Psychiatric exam: Normal Affect, Normal Mood - Skin Skin Exam: Dry, Intact, Normal Color, Warm Discharge Plan - Discharge Medications Prescriptions: Nitrofurantoin Macrocrystal [Nitrofurantoin Macrocrystals] 100 mg PO Q12 #14 cap - Follow Up Plan Condition: STABLE Disposition: HOME/ ROUTINE Instructions: Urinary Tract Infection in Women (DC) Additional Instructions: follow up with Dr Morales tomorrow return to the ED with any worsening or concerning symptoms Referrals: Korey Morales MD [Family Provider] -
== END 2018-02-19 12:08 | disposition home or self-care (01) ==
LOC: H.ER 13:22 → INTOOBSV 18:42 → H.ERHOLD 18:42 → H.MEDSURG1 21:25
PROVIDERS: ADMIT Hospitalist; ATTEND Hospitalist
DX: K62.5 Hemorrhage of anus and rectum (principal); M19.90 Unspecified osteoarthritis, unspecified site; F03.90 Unspecified dementia, unspecified severity, without behavioral disturbance, psychotic disturbance, mood disturbance, and anxiety; I25.10 Atherosclerotic heart disease of native coronary artery without angina pectoris; Z95.5 Presence of coronary angioplasty implant and graft; E11.65 Type 2 diabetes mellitus with hyperglycemia; E78.5 Hyperlipidemia, unspecified; F20.9 Schizophrenia, unspecified; Z87.891 Personal history of nicotine dependence; H54.40 Blindness, one eye, unspecified eye; I12.9 Hypertensive chronic kidney disease with stage 1 through stage 4 chronic kidney disease, or unspecified chronic kidney disease; N18.9 Chronic kidney disease, unspecified; Z79.4 Long term (current) use of insulin; I25.2 Old myocardial infarction; E11.22 Type 2 diabetes mellitus with diabetic chronic kidney disease; N30.01 Acute cystitis with hematuria; Z88.0 Allergy status to penicillin; E78.00 Pure hypercholesterolemia, unspecified
CPT/HCPCS: 71045; 74178; 80053; 81003; 82803; 82948; 83735; 84100; 84484; 85025; 85610; 85730; 86850; 86900; 87040; 87086; 87181; 93005; 96365; 96366; 96367; 96375; 99285; G0378; J0744; J1580; J1650; J7030; Q0175; Q9967

== ENCOUNTER 2018-02-23 13:01 | Emergency (ER) | payer MEDICARE, OTHER ==
[2018-02-23 13:01] VITALS: BMI 26.3
[2018-02-23 13:22] VITALS: TEMP 98.5; O2SAT 98
[2018-02-23] MEDS: Sodium Chloride 0.9% 500 ML IV STA ×2 (14:09→14:14)
--- NOTE | 2018-02-23 14:09 | ED PDOC ---
Lower Extremity Pain/Injury Time Seen by Provider: 02/23/18 13:45 Chief Complaint (Nursing): Lower Extremity Problem/Injury Chief Complaint (Provider): Leg swelling and pain History Per: Family History/Exam Limitations: clinical condition Onset/Duration Of Symptoms: Days (4 days) Additional Complaint(s): Limited H and P as pt. has schizophrenia and does not communicate as much. Pt. was in the hospital admitted for bloody urine and urine infection. Was tx with antibiotics and dc on macrobid. Here as she has echymosis on her R leg and ankle with swelling and pain. Family states it was present on dc. Was red before and that has gotten better. Deny any injury. PCP Dr. Morales. Past Medical History Reviewed: Nursing Documentation, Vital Signs Vital Signs: Last Vital Signs Temp 98.5 F 02/23/18 13:20 Pulse 80 02/23/18 13:20 Resp 16 02/23/18 13:20 BP 115/74 02/23/18 13:20 Pulse Ox 98 02/23/18 13:20 - Medical History PMH: Arthritis, Dementia, Diabetes, HTN, Hypercholesterolemia, Chronic Kidney Disease, Schizophrenia Denies: Atrial Fibrillation, Cardia Arrhythmia, CHF, CVA, HIV, Mitral Valve Prolapse - Surgical History Surgical History: Cholecystectomy, Coronary Stent - Family History Family History: States: Unknown Family Hx - Home Medications Home Medications: Ambulatory Orders Medication Instructions Recorded Insulin Detemir [Levemir] 15 units SC BID 06/29/14 Carvedilol [Coreg] 6.25 mg PO Q12 09/07/17 Lisinopril [Zestril] 10 mg PO DAILY 09/07/17 Perphenazine 2 mg PO Q12 09/07/17 Rosuvastatin Calcium [Crestor] 10 mg PO DAILY 09/07/17 Aspirin [Adult Low Dose Aspirin EC] 81 mg PO DAILY 10/31/17 Clopidogrel [Plavix] 75 mg PO DAILY 10/31/17 Nitrofurantoin Macrocrystal 100 mg PO Q12 #14 cap 02/19/18 [Nitrofurantoin Macrocrystals] Ibuprofen [Motrin] 600 mg PO TID 7 Days tab 02/23/18 - Allergies Allergies/Adverse Reactions: Allergies Allergy/AdvReac Type Severity Reaction Status Date / Time Penicillins Allergy RASH Verified 10/31/17 18:03 Review of Systems Review Of Systems: ROS cannot be obtained secondary to pt's inabilty to answer questions. Musculoskeletal: Positive for: Leg Pain Physical Exam - Reviewed Nursing Documentation Reviewed: Yes Vital Signs Reviewed: Yes - Physical Exam Appears: Positive for: Non-toxic, No Acute Distress Head Exam: Positive for: ATRAUMATIC, NORMAL INSPECTION, NORMOCEPHALIC Eye Exam: Positive for: EOMI. Negative for: Normal appearance (L eye blind) Neck: Positive for: Normal, Painless ROM, Supple Cardiovascular/Chest: Positive for: Regular Rate, Rhythm Respiratory: Positive for: CNT, Normal Breath Sounds Pulses-Dorsalis Pedis (R): 1+ Pulses-Post. Tibialis (R): 1+ Gastrointestinal/Abdominal: Positive for: Normal Exam, Soft. Negative for: Tenderness Back: Positive for: Normal Inspection. Negative for: L CVA Tenderness, R CVA Tenderness Extremity: Positive for: Normal ROM, Tenderness (R tib fib and ankle lateral and medial; Echymosis of tib/fib and medial ankle; erythema mild on medial ankle. Areas are tender and swollen. Has ROM of knee and ankle R. ) Neurologic/Psych: Positive for: Alert - ECG O2 Sat by Pulse Oximetry: 98 Pulse Ox Interpretation: Normal - Progress ED Course And Treament: 1615: Stable. Podiatry spoken to. Will see pt. 1830: Stable. AAOx3. Pain free. Podiatry splinted pt. Fu. No weight on leg. Has a wheel chair. Disposition - Clinical Impression Clinical Impression: Bimalleolar ankle fracture - Patient ED Disposition Is Patient to be Admitted: No Counseled Patient/Family Regarding: Studies Performed, Diagnosis, Need For Followup, Rx Given - Disposition Referrals: Maura Riggs DPM [Staff Provider] - 02/24/18 Disposition: Routine/Home Disposition Time: 18:31 Condition: STABLE Additional Instructions: Return if not better in 3 days. Prescriptions: Ibuprofen [Motrin] 600 mg PO TID 7 Days tab Instructions: Ankle Fracture
--- NOTE | 2018-02-23 15:17 | RAD ---
Date of service: 02/23/2018 PROCEDURE: Radiographs of the right tibia and fibula. HISTORY: pain COMPARISON: None available TECHNIQUE: Frontal and lateral views obtained. FINDINGS: BONES: Minimally displaced oblique fracture distal fibula above the level of the plafond. No additional fracture demonstrated on this examination. JOINT SPACES: Unremarkable. OTHER FINDINGS: None. IMPRESSION: Minimally displaced oblique distal fibular fracture.
--- NOTE | 2018-02-23 15:17 | RAD ---
Date of service: 02/23/2018 PROCEDURE: Right Ankle Radiographs. HISTORY: pain COMPARISON: None FINDINGS: BONES: Oblique fracture distal fibula above the level of the plafond. Minimally displaced. Minimally displaced medial malleolar fracture. No additional fracture identified. JOINTS: Normal. No osteoarthritis. Ankle mortise maintained. Talar dome intact SOFT TISSUES: No significant soft tissue swelling. OTHER FINDINGS: None. IMPRESSION: Fracture medial malleolus and distal fibula, minimally displaced.
--- NOTE | 2018-02-23 15:49 | US ---
Date of service: 02/23/2018 PROCEDURE: Right lower extremity venous duplex Doppler. HISTORY: r/o dvt COMPARISON: None available. TECHNIQUE: Common femoral, superficial femoral, popliteal and posterior tibial veins were evaluated. Flow was assessed with color Doppler, compressibility, assessment of phasic flow and augmentation response. FINDINGS: COMMON FEMORAL VEIN: Unremarkable. SUPERFICIAL FEMORAL VEIN: Unremarkable. POPLITEAL VEIN: Unremarkable. POSTERIOR TIBIAL VEIN: Unremarkable. OTHER FINDINGS: None. IMPRESSION: No evidence of deep venous thrombosis in the right lower extremity.
--- NOTE | 2018-02-23 17:58 | CP.PCM.CON ---
Review of Systems - Review of Systems Review of Systems: As Per HPI Past Patient History - Infectious Disease Hx of Infectious Diseases: None - Tetanus Immunizations Tetanus Immunization: Unknown - Past Medical History & Family History Past Medical History?: Yes - Past Social History Smoking Status: Former Smoker - CARDIAC Hx Atrial Fibrillation: No Hx Cardia Arrhythmia: No Hx Congestive Heart Failure: No Hx Hypercholesterolemia: Yes Hx Hypertension: Yes Hx Mitral Valve Prolapse: No - PULMONARY Hx Respiratory Disorders: No - NEUROLOGICAL Hx Dementia: Yes - HEENT Hx HEENT Problems: No - RENAL Hx Chronic Kidney Disease: Yes - ENDOCRINE/METABOLIC Hx Endocrine Disorders: Yes - HEMATOLOGICAL/ONCOLOGICAL Hx Human Immunodeficiency Virus (HIV): No - INTEGUMENTARY Hx Dermatological Problems: No - MUSCULOSKELETAL/RHEUMATOLOGICAL Hx Arthritis: Yes - GASTROINTESTINAL Hx Gastrointestinal Disorders: Yes Hx Nausea: Yes Hx Vomiting: Yes - GENITOURINARY/GYNECOLOGICAL Hx Genitourinary Disorders: No - PSYCHIATRIC Hx Schizophrenia: Yes - SURGICAL HISTORY Hx Cholecystectomy: Yes Hx Coronary Stent: Yes - ANESTHESIA Hx Anesthesia: Yes Hx Anesthesia Reactions: No Hx Malignant Hyperthermia: No Meds Allergies/Adverse Reactions: Allergies Allergy/AdvReac Type Severity Reaction Status Date / Time Penicillins Allergy RASH Verified 10/31/17 18:03 Physical Exam - Constitutional Appears: Non-toxic, No Acute Distress - Head Exam Head Exam: ATRAUMATIC, NORMOCEPHALIC - Neurological Exam Neurological exam: Altered Results - Vital Signs Recent Vital Signs: Last Vital Signs Temp 98.5 F 02/23/18 13:20 Pulse 80 02/23/18 13:20 Resp 16 02/23/18 13:20 BP 115/74 02/23/18 13:20 Pulse Ox 98 02/23/18 16:17 Assessment & Plan - Assessment and Plan (Free Text) Assessment: 77 y/o F patient seen and evaluated in the ED for Pain and fracture of her right ankle - Date & Time Date: 02/23/18 Time: 17:28
[2018-02-23 18:38] VITALS: BP 170/82; PULSE 70; RESP 18
== END 2018-02-23 18:37 | disposition home or self-care (01) ==
LOC: H.ER 13:01
DX: S82.841A Displaced bimalleolar fracture of right lower leg, initial encounter for closed fracture (principal); E11.9 Type 2 diabetes mellitus without complications; Z86.59 Personal history of other mental and behavioral disorders; I12.9 Hypertensive chronic kidney disease with stage 1 through stage 4 chronic kidney disease, or unspecified chronic kidney disease; N18.9 Chronic kidney disease, unspecified; Z88.0 Allergy status to penicillin; Z95.5 Presence of coronary angioplasty implant and graft; Z79.4 Long term (current) use of insulin; F03.90 Unspecified dementia, unspecified severity, without behavioral disturbance, psychotic disturbance, mood disturbance, and anxiety